=== PATIENT | male | born 1960 | race Caucasian/White ===

== ENCOUNTER 2023-02-13 15:27 | Outpatient (CLI) | payer MEDICARE ==
[2023-02-13 15:47] LABS: BASOPHILS % (AUTO) 0.4 %; EOSINOPHILS # (AUTO) 0.2 10^3/uL (0.0-0.7); EOSINOPHILS % (AUTO) 2.1 %; HCT - HEMATOCRIT 35.5 % (42.0-52.0); HGB - HEMOGLOBIN 11.3 g/dL (14.0-18.0); LYMPHOCYTES # (AUTO) 2.8 10^3/uL (1.5-3.5); LYMPHOCYTES % (AUTO) 27.6 %; MEAN CORPUSCULAR HEMOGLOBIN 28.8 pg (27.0-31.0); MEAN CORPUSCULAR HGB CONC 31.8 g/dL (32.0-36.0); MEAN CORPUSCULAR VOLUME 90.6 fL (80.0-94.0); MEAN PLATELET VOLUME 8.2 fL (7.4-11.4); MONOCYTES # (AUTO) 0.7 10^3/uL (0.0-1.0); MONOCYTES % (AUTO) 6.9 %; NEUTROPHILS # (AUTO) 6.3 10^3/uL (1.5-6.6); NEUTROPHILS % (AUTO) 62.7 %; PLT - PLATELET COUNT 523 10^3/uL (130-450); RED BLOOD COUNT 3.92 10^6/uL (4.70-6.10); RED CELL DISTRIBUTION WIDTH 13.5 % (12.0-15.0); WHITE BLOOD COUNT 10.1 x10^3/uL (4.8-10.8)
[2023-02-13 16:12] LABS: ALBUMIN 2.8 g/dL (3.2-5.5); ALBUMIN/GLOBULIN RATIO 0.6 (1.0-2.2); ALKALINE PHOSPHATASE 75 IU/L (42-121); ALT ALANINE AMINOTRANSFERASE 10 IU/L (10-60); AST ASPARTATE AMINOTRANSFERASE 19 IU/L (10-42); BILIRUBIN,TOTAL 0.4 mg/dL (0.2-1.0); BUN - BLOOD UREA NITROGEN 15 mg/dL (6-20); CALCIUM 8.8 mg/dL (8.5-10.3); CARBON DIOXIDE - CO2 26 mmol/L (21-32); CHLORIDE 98 mmol/L (101-111); CHOL/HDL RATIO 3.4 (<5.0); CHOLESTEROL 141 mg/dL; CREATININE 0.6 mg/dL (0.6-1.2); GFR - MDRD 137 (>89); GLUCOSE 124 mg/dL (70-100); HDL CHOLESTEROL 41 mg/dL; LDL CHOLESTEROL,CALCULATED 72 mg/dL; LDL/HDL RATIO 1.8 (<3.6); POTASSIUM 3.4 mmol/L (3.5-5.0); SODIUM 138 mmol/L (135-145); TOTAL PROTEIN 7.3 g/dL (6.7-8.2); TRIGLYCERIDES 141 mg/dL; VLDL CHOLESTEROL 28 mg/dL
== END 2023-02-13 15:28 | disposition home or self-care (01) ==
LOC: LAB 15:27
PROVIDERS: ATTEND Family Medicine
DX: I10 Essential (primary) hypertension (principal); E03.9 Hypothyroidism, unspecified; J44.9 Chronic obstructive pulmonary disease, unspecified; Z79.899 Other long term (current) drug therapy
CPT/HCPCS: 36415; 80053; 80061; 83721; 84443; 85025

== ENCOUNTER 2023-03-22 14:25 | Emergency (ER) | payer MEDICARE ==
[2023-03-22 15:02] LABS: BASOPHILS % (AUTO) 0.4 %; EOSINOPHILS # (AUTO) 0.1 10^3/uL (0.0-0.7); EOSINOPHILS % (AUTO) 1.1 %; HCT - HEMATOCRIT 33.3 % (42.0-52.0); HGB - HEMOGLOBIN 10.3 g/dL (14.0-18.0); LYMPHOCYTES # (AUTO) 1.7 10^3/uL (1.5-3.5); LYMPHOCYTES % (AUTO) 20.7 %; MEAN CORPUSCULAR HEMOGLOBIN 26.5 pg (27.0-31.0); MEAN CORPUSCULAR HGB CONC 30.9 g/dL (32.0-36.0); MEAN CORPUSCULAR VOLUME 85.8 fL (80.0-94.0); MEAN PLATELET VOLUME 8.3 fL (7.4-11.4); MONOCYTES # (AUTO) 0.6 10^3/uL (0.0-1.0); MONOCYTES % (AUTO) 7.1 %; NEUTROPHILS # (AUTO) 5.7 10^3/uL (1.5-6.6); NEUTROPHILS % (AUTO) 70.3 %; PLT - PLATELET COUNT 626 10^3/uL (130-450); RED BLOOD COUNT 3.88 10^6/uL (4.70-6.10); WHITE BLOOD COUNT 8.2 x10^3/uL (4.8-10.8)
[2023-03-22 15:25] LABS: ALBUMIN 2.4 g/dL (3.2-5.5); ALBUMIN/GLOBULIN RATIO 0.5 (1.0-2.2); BILIRUBIN,TOTAL 0.2 mg/dL (0.2-1.0); CALCIUM 8.7 mg/dL (8.5-10.3); CREATININE 0.5 mg/dL (0.6-1.2)
--- NOTE | 2023-03-22 15:39 | XRAY Report ---
PROCEDURE: Chest 2 View X-Ray INDICATIONS: cough TECHNIQUE: 2 views of the chest were acquired. COMPARISON: None. FINDINGS: Surgical changes and devices: None. Lungs and pleura: A well-circumscribed area of opacity in the right lower lung field corresponding w ith the right lower lobe is seen. Mediastinum: Mediastinal contours appear normal. Heart size is normal. Bones and chest wall: No suspicious bony lesions. Overlying soft tissues appear unremarkable. Rig htward curvature of the thoracic spine. IMPRESSION: 1. No acute abnormality of the chest. 2. Well-circumscribed opacity in the right lower lung field. Recommend CT of the chest. Reviewed by: Siddhartha Ma on 03/22/2023 3:38 PM PDT Approved by: Siddhartha Ma on 03/22/2023 3:38 PM PDT Station ID: [id number]
[2023-03-22] MEDS ORDERED: SODIUM CHLORIDE 0.9% 1,000 ML IV STA (15:50)
[2023-03-22] MEDS ORDERED: POTASSIUM BICARB 25 MEQ TABLET PO STA (15:50)
[2023-03-22] MEDS ORDERED: iohexoL-300 100 ML VIAL ONE (15:59)
[2023-03-22 16:06] LABS: MAGNESIUM 1.9 mg/dL (1.7-2.8); PHOSPHORUS 2.7 mg/dL (2.5-4.6)
--- NOTE | 2023-03-22 16:14 | ED Physician Documentation ---
History of Present Illness - Stated complaint Stated Complaint: COUGHING BLOOD/LEG WEAKNESS - Chief complaint Chief Complaint: General - History obtained from History obtained from: Patient - History of Present Illness Pain level max: 4 Pain level now: 3 - Additonal information Additional information: 62 year old male with a history of "a bad back, a bad knee and fibromyalgia". He takes 600mg of morphine daily. 6 mg of Lorazepam and 6 mg of clonazepam. He has been a long time smoker as well. States that he has had increased shortness of breath lately. Has been on advair in the past, but states that it was too expensive so stopped it. He does continue to smoke heavily however. Has never had a colonoscopy. States increased weakness and falls over the past month as well. No fevers. Occasional chills. 1 week ago during a coughing spell, he coughed up blood clots. Denies any blood in the stool. states hit left side of ribs on last fall 1 week ago. He called his PCP to make an appointment and was told to come here for evaluation. Review of Systems Constitutional: denies: Fever Respiratory: reports: Cough (chronic, unchanged) GI: denies: Nausea, Vomiting Skin: denies: Rash Musculoskeletal: reports: Back pain (chronic unchanged) Neurologic: denies: Headache PD PAST MEDICAL HISTORY - Past Medical History Past Medical History: Yes Other Past Medical History: chronic back and knee pain - Allergies Allergies/Adverse Reactions: Allergies Allergy/AdvReac Type Severity Reaction Status Date / Time No Known Drug Allergies Allergy Verified 03/22/23 14:34 - Living Situation Living Situation: reports: With family Living Arrangement: reports: At home - Social History Does the pt smoke?: Yes Smoking Status: Current every day smoker - Family History Family history: reports: Non contributory PD ED PE NORMAL - Vitals Vital signs reviewed: Yes - General General: Alert and oriented X 3, No acute distress, Well developed/nourished, Other (pale appearing) - HEENT HEENT: Atraumatic, PERRL, EOMI, Moist mucous membranes - Neck Neck: Supple, no meningeal sign, No bony TTP, No adenopathy - Cardiac Cardiac: RRR, Strong equal pulses - Respiratory Respiratory: No respiratory distress, Clear bilaterally - Abdomen Abdomen: Soft, Non tender, Non distended - Back Back: No CVA TTP, No spinal TTP - Derm Derm: Warm and dry - Extremities Extremities: No edema, No calf tenderness / cord - Neuro Neuro: Alert and oriented X 3 - Psych Psych: Normal mood, Normal affect - Free text exam Free text exam: Mild tenderness to palpation over the left anterior left ribs. No crepitus. No ecchymosis. Results - Vitals Vitals: Vital Signs - 24 hr 03/22/23 03/22/23 03/22/23 14:34 16:48 18:03 Temperature 36.5 C Heart Rate 130 H 112 H 105 H Respiratory 16 12 14 Rate Blood Pressure 158/82 H 112/56 L 115/59 L O2 Saturation 94 98 99 Oxygen O2 Source Room air - EKG (time done) 1533 EKG releavant findings:: EKG personally interpreted by author of this note. Relevant findings are: Rate: Rate (enter#) (109) Rhythm: Sinus tachycardia [place]: LAD Intervals: Normal PA QRS: Normal Ischemia: Normal ST segments Compare to prior EKG: Old EKG unavailable - Labs Labs: Laboratory Tests 03/22/23 03/22/23 03/22/23 14:57 14:57 14:57 WBC 8.2 RBC 3.88 L Hgb 10.3 L Hct 33.3 L MCV 85.8 MCH 26.5 L MCHC 30.9 L RDW 15.0 Plt Count 626 H MPV 8.3 Neut # (Auto) 5.7 Lymph # (Auto) 1.7 [place]ick # (Auto) 0.6 Eos # (Auto) 0.1 Baso # (Auto) 0.0 Absolute Nucleated RBC 0.00 Nucleated RBC % 0.0 Sodium 139 Potassium 3.0 L Chloride 98 L Carbon Dioxide 31 Anion Gap 10.0 BUN 11 Creatinine 0.5 L Estimated GFR (MDRD) 168 Glucose 119 H Calcium 8.7 Phosphorus 2.7 Magnesium 1.9 Total Bilirubin 0.2 AST 26 ALT 15 Alkaline Phosphatase 95 Total Protein 7.0 Albumin 2.4 L Globulin 4.6 H Albumin/Globulin Ratio 0.5 L Lipase 20 L - Rads (name of study) Chest x-ray Relevant Findings:: Final report received, See rad report CT chest Relevant Findings:: Final report received, See rad report CT abdomen pelvis Relevant Findings:: Final report received, See rad report PD Medical Decision Making - ED course Complexity details: reviewed results, re-evaluated patient, considered differential, d/w patient, d/w outside solar sales consultant ED course: 62-year-old male with a large right lower lobe lung mass. There may be extension into the right atria as well. I spoke with Dr. Joseph, Oncology at [facility] in [place] who recommends a lung biopsy, staging and referral to oncology. I spoke with Dr. Phillip Banda, on-call for Dr. Meyers, they will follow-up with the patient tomorrow in the office. Patient declines a breathing treatment here. The patient does have hypokalemia, he was given potassium. Appears dehydrated and was given IV fluids. Not hypoxic. No respiratory distress. Patient and family counseled regarding signs and symptoms for which I believe and urgent re-evaluation would be necessary. Patient with good understanding of and agreement to plan and is comfortable going home at this time This document was made in part using voice recognition software. While efforts are made to proofread this document, sound alike and grammatical errors may occur. Departure - Departure Disposition: 01 Home, Self Care Clinical Impression: Lung mass, Hypokalemia Condition: Good Instructions: Cancer Lung Dx Staging, Cancer Lung Plan Future, Cancer Lung L iving, ED Potassium Deficiency Follow-Up: Phillip Banda MD [Provider Admit Priv/Credential] - Hernando Meyers MD [Physician No Access] - Tomorrow Comments: I spoke with Dr. Banda, on-call for Dr. Meyers today. Please contact the office tomorrow so they can set up your referrals to oncology and to have a lung biopsy performed. Your CT reading is below. PROCEDURE: CHEST W INDICATIONS: mass on CXR CONTRAST: 100ml omnipaque 300 TECHNIQUE: After the administration of intravenous contrast, 1 mm axial images were acquired from the pulmonary apices through the posterior costophrenic angles. Axial 5 mm soft tissue kernel reconstructions were performed as well as 8 mm axial MIP and coronal and sagittal 5 mm r eformations. For radiation dose reduction, the following was used: automated exposure control, adjustment of mA and/or kV according to patient size. COMPARISON: Chest x-ray 03/22/2023, CT abdomen pelvis 03/22/2023 FINDINGS: Image quality: Excellent. Lungs and pleura: Mild to moderate right effusion. Within the right base there is a heterogeneously enhancing mass which becomes contiguous with the hilum. There is an adjacent filling defect within the right atrium measuring approximately 1.8 x 1.4 cm on series 2 image 42. Mediastinum: Heart size is normal. Minimal pericardial effusion. No large vessel abnormality. No mediastinal adenopathy by size criteria. Chest wall and lower neck: Thyroid is unremarkable. No axillary or supraclavicular adenopathy by size. Bones: No aggressive osseous abnormality. Upper Abdomen: Punctate low-attenuation focus in the right hepatic lobe is present to small to definitively characterize. IMPRESSION: Heterogeneously enhancing mass within the right lower lobe in direct approximation to the right hilum. Overall appearance is most concerning for malignancy with likely superimposed atelectatic change of adjacent collapsed lung. Mild to moderate right effusion. Focal area of filling defect identified adjacent to the mass at the right atrium concerning for tumor infiltration. Minimal pericardial effusion. PROCEDURE: ABDOMEN/PELVIS W INDICATIONS: mass on CXR CONTRAST: 100ml omnipaque 300 TECHNIQUE: After the administration of IV contrast, 5 mm thick sections acquired from the diaphragms to the symphysis. 5 mm thick coronal and sagittal reformats were acquired. For radiation dose reduction, the following was used: automated exposure control, adjustment of mA and/or kV according to patient size. COMPARISON: FINDINGS: Image quality: Excellent. Lung bases and heart: Right lower quadrant mass and effusion is partially visualized. Please see CT chest report of 03/22/2023 for further details. Liver: Punctate low-attenuation right hepatic focus is present to small to definitively characterize. There is an ill-defined area of low attenuation anteriorly near the falciform ligament on series 3 image 15. Gallbladder and biliary tree: Unremarkable Spleen: No splenomegaly. Pancreas: Marked fatty atrophy. Adrenals: No adrenal nodule. Kidneys and ureters: No hydronephrosis. No renal cystic lesion which requires follow up. No solid mass. Bowel and peritoneum: No bowel distension. No pathologic free fluid. Mild colonic diverticula are present without associated inflammatory change. Lymph nodes: No central or retroperitoneal adenopathy. Vessels: No infrarenal aortic aneurysm. PELVIS Reproductive organs: Unremarkable. Bladder: No abnormal wall thickening, accounting for underdistension. Pelvic lymph nodes: No pelvic adenopathy by size criteria. Bones: No aggressive osseous abnormality. Other: No significant ventral or inguinal hernia. There is a 1.5 cm enhancing density within the inferolateral rectus musculature on the right on series 3 image 49. IMPRESSION: Partially visualized right pulmonary mass. Please see CT chest report for further details. Punctate right hepatic low-attenuation focus too small to definitively characterize. While this could represent a cyst or hemangioma, other etiologies cannot be definitively exclude. Pulmonary low-attenuation the anterior liver suggestive of focal fat sparing. Hyperdense nodule within the rectus soft tissues as described below. Etiology is uncertain on the basis of this exam. While this could represent a complex cystic structure, enhancing mass should also be considered. Given lung findings, metastatic focus cannot be excluded. Discharge Date/Time: 03/22/23 18:03
[2023-03-22] MEDS ORDERED: iohexoL-300 100 ML VIAL IVP ONE (16:50)
--- NOTE | 2023-03-22 17:00 | CT Report ---
PROCEDURE: CHEST W INDICATIONS: mass on CXR CONTRAST: 100ml omnipaque 300 TECHNIQUE: After the administration of intravenous contrast, 1 mm axial images were acquired from the pulmonary apices through the posterior costophrenic angles. Axial 5 mm soft tissue kernel reconstructions were performed as well as 8 mm axial MIP and coronal and sagittal 5 mm reformations. For radiation dose reduction, the following was used: automated exposure control, adjustment of mA and/or kV according to patient size. COMPARISON: Chest x-ray 03/22/2023, CT abdomen pelvis 03/22/2023 FINDINGS: Image quality: Excellent. Lungs and pleura: Mild to moderate right effusion. Within the right base there is a heterogeneously e nhancing mass which becomes contiguous with the hilum. There is an adjacent filling defect within the right atrium measuring approximately 1.8 x 1.4 cm on series 2 image 42. Mediastinum: Heart size is normal. Minimal pericardial effusion. No large vessel abnormality. No medi astinal adenopathy by size criteria. Chest wall and lower neck: Thyroid is unremarkable. No axillary or supraclavicular adenopathy by size . Bones: No aggressive osseous abnormality. Upper Abdomen: Punctate low-attenuation focus in the right hepatic lobe is present to small to defini tively characterize. IMPRESSION: Heterogeneously enhancing mass within the right lower lobe in direct approximation to the right hilum . Overall appearance is most concerning for malignancy with likely superimposed atelectatic change of adjacent collapsed lung. Mild to moderate right effusion. Focal area of filling defect identified adjacent to the mass at the right atrium concerning for tumor infiltration. Minimal pericardial effusion. Reviewed by: Concepcion Swanson MD on 03/22/2023 4:59 PM PDT Approved by: Concepcion Swanson MD on 03/22/2023 4:59 PM PDT Station ID: [id number]
--- NOTE | 2023-03-22 17:03 | CT Report ---
PROCEDURE: ABDOMEN/PELVIS W INDICATIONS: mass on CXR CONTRAST: 100ml omnipaque 300 TECHNIQUE: After the administration of IV contrast, 5 mm thick sections acquired from the diaphragms to the symp hysis. 5 mm thick coronal and sagittal reformats were acquired. For radiation dose reduction, the f ollowing was used: automated exposure control, adjustment of mA and/or kV according to patient size. COMPARISON: FINDINGS: Image quality: Excellent. Lung bases and heart: Right lower quadrant mass and effusion is partially visualized. Please see CT c hest report of 03/22/2023 for further details. Liver: Punctate low-attenuation right hepatic focus is present to small to definitively characterize. There is an ill-defined area of low attenuation anteriorly near the falciform ligament on series 3 i mage 15. Gallbladder and biliary tree: Unremarkable Spleen: No splenomegaly. Pancreas: Marked fatty atrophy. Adrenals: No adrenal nodule. Kidneys and ureters: No hydronephrosis. No renal cystic lesion which requires follow up. No solid mas s. Bowel and peritoneum: No bowel distension. No pathologic free fluid. Mild colonic diverticula are pre sent without associated inflammatory change. Lymph nodes: No central or retroperitoneal adenopathy. Vessels: No infrarenal aortic aneurysm. PELVIS Reproductive organs: Unremarkable. Bladder: No abnormal wall thickening, accounting for underdistension. Pelvic lymph nodes: No pelvic adenopathy by size criteria. Bones: No aggressive osseous abnormality. Other: No significant ventral or inguinal hernia. There is a 1.5 cm enhancing density within the infe rolateral rectus musculature on the right on series 3 image 49. IMPRESSION: Partially visualized right pulmonary mass. Please see CT chest report for further details. Punctate right hepatic low-attenuation focus too small to definitively characterize. While this could represent a cyst or hemangioma, other etiologies cannot be definitively exclude. Pulmonary low-attenuation the anterior liver suggestive of focal fat sparing. Hyperdense nodule within the rectus soft tissues as described below. Etiology is uncertain on the bas is of this exam. While this could represent a complex cystic structure, enhancing mass should also be considered. Given lung findings, metastatic focus cannot be excluded. Reviewed by: Concepcion Swanson MD on 03/22/2023 5:02 PM PDT Approved by: Concepcion Swanson MD on 03/22/2023 5:02 PM PDT Station ID: [id number]
[2023-03-22 18:06] VITALS: BP 115/59
== END 2023-03-22 18:03 | disposition home or self-care (01) ==
LOC: ED 14:25
DX: R91.8 Other nonspecific abnormal finding of lung field (principal); E87.6 Hypokalemia; F17.200 Nicotine dependence, unspecified, uncomplicated
CPT/HCPCS: 36415; 71046; 71260; 74177; 80053; 83690; 83735; 84100; 85025; 93005; 96360; 99284; A9270; Q9967

== ENCOUNTER 2023-04-10 14:44 | Outpatient (CLI) | payer MEDICARE | END 2023-04-10 23:59 | disposition critical access hospital (66) | LOC: EMS 14:44 | DX: R06.02 Shortness of breath (principal); R09.02 Hypoxemia; R41.0 Disorientation, unspecified | CPT/HCPCS: A0425; A0429 ==

== ENCOUNTER 2023-04-10 15:21 | Inpatient (IN) | payer MEDICARE ==
[2023-04-10] MEDS ORDERED: SODIUM CHLORIDE 0.9% 1,000 ML IV STA ×2 (15:41→17:33)
--- NOTE | 2023-04-10 15:42 | ED Physician Documentation ---
PD HPI ALTERED MENTAL STATUS - Stated complaint Stated Complaint: CONFUSION - Chief complaint Chief Complaint: Neuro - History obtained from History obtained from: Patient, Family (spouse) - History of Present Illness Timing - onset: How many weeks ago (2) Timing - duration: Weeks (2) Timing - details: Gradual onset, Still present Quality / character: Less responsive, Confused, Disoriented Associated symptoms: Dyspnea, General weakness Contributing factors: Cancer Basline status: Alert and oriented X 3, Ambulatory, Independent Similar symptoms before: Has not had sx before Recently seen: Emergency Dept - Additional information Additional information: Magdy Ivey is a 62-year-old male who 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 He has a history of COPD and he recently has had a series of falls and was evaluated in the emergency department on 22 March. He at that time was noted to have a mass in his right lung consistent with tumor and he had follow- up with his primary to arrange biopsy and this has not occurred. The patient has subsequently had more falls and he has become more confused over the past 2 days. He was picked up by medics and noted to be hypoxic they placed oxygen without resolution of his symptoms. He was tachycardic as well. He had altered mental status. The patient was unable to give adequate history. History was taken from the on arrival. Review of Systems Constitutional: reports: Fever (Low-grade undulating) Eyes: reports: Decreased vision (There is some problem with the patient's vision that he is unable to fully explain.) Ears: reports: Ear pain (There is some unusual pain behind the right ear.) Nose: denies: Rhinorrhea / runny nose, Congestion Throat: denies: Sore throat Cardiac: denies: Chest pain / pressure, Palpitations, Pedal edema, Calf pain Respiratory: reports: Dyspnea. denies: Cough, Wheezing GI: denies: Abdominal Pain, Nausea, Vomiting, Constipation, Diarrhea : denies: Dysuria, Frequency Skin: denies: Rash Musculoskeletal: reports: Back pain. denies: Neck pain Neurologic: reports: Generalized weakness, Confused, Altered mental status. denies: Headache, Head injury, LOC PD PAST MEDICAL HISTORY - Past Medical History Past Medical History: Yes Other Past Medical History: Diagnosed with lung tumor recently-no staging as of yet. - Allergies Allergies/Adverse Reactions: Allergies Allergy/AdvReac Type Severity Reaction Status Date / Time No Known Drug Allergies Allergy Verified 03/22/23 14:34 - Social History Does the pt smoke?: Yes Smoking Status: Former smoker Does the pt drink ETOH?: No Does the pt have substance abuse?: No - Immunizations Immunizations are current?: Yes PD ED PE NORMAL - Vitals Vital signs reviewed: Yes (Tachycardic and hypertensive) - General General: Other (Thin pale male with his eyes rolled back attempts to communicate and has significant speech delay and delay in execution of motor commands. He appears ill.) - HEENT HEENT: Atraumatic, PERRL, EOMI - Neck Neck: Supple, no meningeal sign, No bony TTP - Cardiac Cardiac: No murmur, Other (Tachycardic to 130) - Respiratory Respiratory: Other (Tachypneic at rest with diminished breath sounds especially in the right base.) - Abdomen Abdomen: Soft, Non tender - Back Back: No CVA TTP, No spinal TTP - Derm Derm: Warm and dry, No rash, Other (Pale color to skin) - Extremities Extremities: No deformity, No edema - Neuro Neuro: Alert and oriented X 3, car escort 2-12 intact, No motor deficit, No sensory deficit Eye Opening: To Voice Motor: Obeys Commands Verbal: Confused GCS Score: 13 - Psych Psych: Normal mood, Normal affect Results - Vitals Vitals: Vital Signs - 24 hr 04/10/23 04/10/23 04/10/23 15:21 15:25 15:55 Temperature 37.2 C 37.2 C Heart Rate 128 H 128 H 120 H Respiratory 22 22 20 Rate Blood Pressure 121/87 H 121/87 H 120/82 H O2 Saturation 99 99 98 If not protocol : Oxygen Flow, liters/minute 04/10/23 04/10/23 04/10/23 16:44 17:00 17:30 Temperature Heart Rate 119 H 109 H 119 H Respiratory 16 16 22 Rate Blood Pressure 109/65 125/64 128/70 O2 Saturation 98 100 97 If not protocol : Oxygen Flow, liters/minute 04/10/23 04/10/23 04/10/23 18:00 18:30 19:00 Temperature Heart Rate 129 H 112 H 119 H Respiratory 20 14 16 Rate Blood Pressure 117/64 110/57 L 122/72 O2 Saturation 100 98 98 If not protocol 2 : Oxygen Flow, liters/minute 04/10/23 04/10/23 04/10/23 19:30 20:00 20:30 Temperature Heart Rate 114 H 111 H 110 H Respiratory 14 24 18 Rate Blood Pressure 114/68 92/60 90/60 O2 Saturation 96 98 98 If not protocol 2 2 2 : Oxygen Flow, liters/minute Oxygen O2 Source Nasal cannula Oxygen Flow Rate 4 - Labs Labs: Microbiology 04/10/23 18:18 Body Fluid Culture - Preliminary Other - Aspirate Laboratory Tests 04/10/23 04/10/23 04/10/23 16:35 16:35 16:35 WBC 10.3 RBC 3.95 L Hgb 10.0 L Hct 33.0 L MCV 83.5 MCH 25.3 L MCHC 30.3 L RDW 17.6 H Plt Count 462 H MPV 8.7 Neut # (Auto) 9.3 H Lymph # (Auto) 0.5 L Burnet # (Auto) 0.5 Eos # (Auto) 0.0 Baso # (Auto) 0.0 Absolute Nucleated RBC 0.00 Nucleated RBC % 0.0 Sodium 136 Potassium 3.5 Chloride 96 L Carbon Dioxide 30 Anion Gap 10.0 BUN 8 Creatinine 0.6 Estimated GFR (MDRD) 137 Glucose 121 H Lactic Acid 1.5 Calcium 8.5 Total Bilirubin 0.4 AST 13 ALT 11 Alkaline Phosphatase 94 Total Protein 6.3 L Albumin 2.1 L Globulin 4.2 Albumin/Globulin Ratio 0.5 L Lipase 19 L Fluid Source Fluid Color Fluid Clarity Fluid WBC Fluid RBC Fluid Neutrophils % Fluid Lymphocytes % Fluid Monocytes % Fluid Macrophages % Fld Mesothelial Cell % 04/10/23 18:30 WBC RBC Hgb Hct MCV MCH MCHC RDW Plt Count MPV Neut # (Auto) Lymph # (Auto) Burnet # (Auto) Eos # (Auto) Baso # (Auto) Absolute Nucleated RBC Nucleated RBC % Sodium Potassium Chloride Carbon Dioxide Anion Gap BUN Creatinine Estimated GFR (MDRD) Glucose Lactic Acid Calcium Total Bilirubin AST ALT Alkaline Phosphatase Total Protein Albumin Globulin Albumin/Globulin Ratio Lipase Fluid Source PLEURAL Fluid Color YELLOW Fluid Clarity CLEAR Fluid WBC 352 Fluid RBC < 3000 Fluid Neutrophils % 21.0 Fluid Lymphocytes % 66.0 Fluid Monocytes % 3.0 Fluid Macrophages % 2.0 Fld Mesothelial Cell % 8.0 - Rads (name of study) chest Relevant Findings:: Prelim report reviewed (Impression: Interval development of a moderate to large right pleural effusion with near complete atelectasis of the right middle lobe and lower lobe. Patient is known right lower lobe mass is obstructed on the current view. No pneumothorax. Pulmonary vascular congestion.), EMP independent interpretation of test CT head Relevant Findings:: Prelim report reviewed (Impression: Bilateral occipital and posterior parietal hypodensities are likely remote infarcts, less likely hypodense masses, please correlate with prior imaging or history of prior strokes. If no prior history, consider CT with contrast to rule out masses.), EMP independent interpretation of test chest post thoracentesis Relevant Findings:: Prelim report reviewed (Impression: 1. Opacification of the right lower lung field consistent with the known mass and associated atelectasis. Status postthoracentesis with no pneumothorax.), EMP independent interpretation of test Procedures - Thoracentesis - Major Preparation: Consent obtained, Sterile prep and drape, Sitting, Local - lidocaine Technique: Catheter over needle, Intercostal space - enter (9), Lateral, Right, Ultrasound used Fluid: Clear, Sent for cell count, Sent for gram stain, Sent for culture, Sent for cytology Aftercare: CXR obtained, No pneumo, No complications, Patient tolerated well, Dressing applied - IVC sono (time) 1538 Bedside IVC sono: IVC measures (cm) (1.12), Dehydration (est 1+ liter deficit) PD Medical Decision Making - ED course Complexity details: reviewed old records, reviewed results, re-evaluated patient, considered differential, d/w patient, d/w family Reviewed Lab Results: We reviewed a complete blood count showing a normal white blood cell count, a depressed hemoglobin and hematocrit at 10.0 and 33.0. These levels are nearly identical to what the patient had 3 weeks ago. Platelet count is elevated at 462 down from where he was on his prior visit 3 weeks ago. Pleural fluid shows 352 white blood cells and less than 3000 red blood cells. My interpretation of these chronically abnormal laboratory values are the patient has not progressed with blood loss since his most recent visit. This blood work does not offer a specific diagnosis. The patient had diagnostic imaging done demonstrating a large pleural effusion on the right side which would account for the patient's presentation for hypoxia and would be expected from the patient's known lung mass. Diagnostic imaging also a a revealed a mass in the brain. This would account for the patient's visual difficulty. ED course: 62-year-old Magdy Ivey presents with a new diagnosis of lung cancer 3 weeks ago and he has not had biopsy done as yet. He has not had treatment started as yet. He presents today with confusion and is found to be hypoxic tachycardic and a new masses discovered in the patient's brain. I interrogated the patient's inferior vena cava and found him to be dehydrated significantly and we applied intravenous saline. The patient had some improvement with the saline alone. He has large pleural effusion on the right side and I personally performed a thoracentesis removing 1500 mL of straw-colored fluid. The patient had improvement in his breathing and generally felt much improved but he continues to be tachycardic at about 120. Arrangements are made for admission to the hospital with persistent hypoxia and new mets to the brain. Departure - Departure Disposition: 66 [facility] DC/Xfer Clinical Impression: Pleural effusion, malignant, Metastasis to brain Altered mental status Qualifiers: Altered mental status type: disorientation Qualified Code(s): R41.0 - Disorientation, unspecified Lung cancer Qualifiers: Laterality: right Lung location: hilum of lung Qualified Code(s): C34.01 - Malignant neoplasm of right main bronchus
--- NOTE | 2023-04-10 16:01 | XRAY Report ---
PROCEDURE: Chest 1 View X-Ray INDICATIONS: chest pain TECHNIQUE: One view of the chest was acquired. COMPARISON: 03/22/2023. FINDINGS: Surgical changes and devices: None. Lungs and pleura: Interval development of moderate to large right pleural effusion with near complet e atelectasis of right middle and lower lobes. No pneumothorax. Left lung is clear. Mediastinum: Mediastinal contours appear normal. Heart size is normal. Bones and chest wall: No suspicious bony lesions. Overlying soft tissues appear unremarkable. IMPRESSION: Interval development of moderate to large right pleural effusion with near complete atelectasis of ri ght middle and lower lobe. Patient's known right lower lobe mass is obscured on the current study. No pneumothorax. Pulmonary vascular congestion. Reviewed by: Arie Gonzalez MD on 04/10/2023 3:59 PM PDT Approved by: Arie Gonzalez MD on 04/10/2023 3:59 PM PDT Station ID: [id number]
[2023-04-10 16:52] LABS: BASOPHILS % (AUTO) 0.2 %; LYMPHOCYTES # (AUTO) 0.5 10^3/uL (1.5-3.5); LYMPHOCYTES % (AUTO) 5.2 %; MEAN CORPUSCULAR HEMOGLOBIN 25.3 pg (27.0-31.0); MEAN CORPUSCULAR HGB CONC 30.3 g/dL (32.0-36.0); MEAN CORPUSCULAR VOLUME 83.5 fL (80.0-94.0); MEAN PLATELET VOLUME 8.7 fL (7.4-11.4); MONOCYTES # (AUTO) 0.5 10^3/uL (0.0-1.0); MONOCYTES % (AUTO) 4.4 %; NEUTROPHILS # (AUTO) 9.3 10^3/uL (1.5-6.6); PLT - PLATELET COUNT 462 10^3/uL (130-450); RED BLOOD COUNT 3.95 10^6/uL (4.70-6.10); RED CELL DISTRIBUTION WIDTH 17.6 % (12.0-15.0); WHITE BLOOD COUNT 10.3 x10^3/uL (4.8-10.8)
[2023-04-10 17:00] LABS: ALBUMIN 2.1 g/dL (3.2-5.5); ALBUMIN/GLOBULIN RATIO 0.5 (1.0-2.2); BILIRUBIN,TOTAL 0.4 mg/dL (0.2-1.0); CALCIUM 8.5 mg/dL (8.5-10.3); CREATININE 0.6 mg/dL (0.6-1.2); POTASSIUM 3.5 mmol/L (3.5-5.0); TOTAL PROTEIN 6.3 g/dL (6.7-8.2)
[2023-04-10 19:29] LABS: BF CLARITY CLEAR; BF SOURCE PLEURAL; CC,BF RBC < 3000 /mm^3; CC,BF WBC 352 /mm^3
[2023-04-10 19:30] LABS: BF COLOR YELLOW
--- NOTE | 2023-04-10 19:37 | CT Report ---
PROCEDURE: HEAD WO INDICATIONS: confusion TECHNIQUE: Noncontrast 4.5 mm thick angled axial sections acquired from the foramen magnum to the vertex. For r adiation dose reduction, the following was used: automated exposure control, adjustment of mA and/or kV according to patient size. COMPARISON: None. FINDINGS: Image quality: Excellent. CSF spaces: Basal cisterns are patent. No extra-axial fluid collections. Ventricles are normal in size and shape. Brain: Bilateral occipital and posterior parietal hypodensities are seen, likely remote infarcts. No evidence of hemorrhage. No midline shift. No intracranial masses or hemorrhage. Posada-white matter interface is normal. Skull and face: Calvarium and visualized facial bones are intact, without suspicious lesions. Sinuses: Visualized sinuses and mastoids are clear. IMPRESSION: Bilateral occipital and posterior parietal hypodensities are likely remote infarcts, le ss likely hypodense masses, please correlate with prior imaging or history of prior strokes. If no pr ior history, consider CT with contrast to rule out masses. Reviewed by: Siddhartha Ma on 04/10/2023 7:36 PM PDT Approved by: Siddhartha Ma on 04/10/2023 7:36 PM PDT Station ID: [id number]
--- NOTE | 2023-04-10 19:44 | XRAY Report ---
PROCEDURE: Chest 1 View X-Ray INDICATIONS: post thoracentesis TECHNIQUE: One view of the chest was acquired. COMPARISON: None. FINDINGS: Surgical changes and devices: None. Lungs and pleura: The right lung demonstrates opacification of the lower lung. Pleural effusion prev iously seen earlier today is decreased. There is no pneumothorax. The left lung is clear. Mediastinum: Mediastinal contours appear normal. Heart size is normal. Bones and chest wall: No suspicious bony lesions. Overlying soft tissues appear unremarkable. IMPRESSION: 1. Opacification of the right lower lung field consistent with known mass and associated atelectasis. 2. Status post thoracentesis with no pneumothorax. Reviewed by: Siddhartha Ma on 04/10/2023 7:43 PM PDT Approved by: Siddhartha Ma on 04/10/2023 7:43 PM PDT Station ID: [id number]
--- NOTE | 2023-04-10 20:59 | HISTORY & PHYSICAL EXAMINATION ---
Chief Complaint - Chief Complaint Chief Complaint: fall History of Present Illness - Admitted From Admitted From:: home - History of Present Illness HPI Comment/Other: 62 y/o M presented with falls and AMS and hypoxia. He was found to have a lung mass and was scheduled to have a biopsy. In the ED he was found to be tachycardic and imagaing showed new pleural effusion on right and lung masses. He has improved with fluid and o2. He also has some visual difficulties recently. History - Past Medical History Other Past Medical History: Diagnosed with lung tumor recently-no staging as of yet. - Family & Social History Living Situation: With family Meds/Allgy - Allergies Allergies/Adverse Reactions: Allergies Allergy/AdvReac Type Severity Reaction Status Date / Time No Known Drug Allergies Allergy Verified 03/22/23 14:34 Review of Systems - Constitutional Constitutional: reports: Fatigue - Eyes Eyes: reports: Blurred vision - Respiratory Respiratory: reports: SOB with exertion - Neurological Neurological: reports: General weakness Exam - Vital Signs Vital Signs: Vital Signs x48h Temp Pulse Resp BP Pulse Ox O2 Flow Rate 04/10/23 20:30 110 H 18 90/60 98 2 04/10/23 20:00 111 H 24 92/60 98 2 04/10/23 19:30 114 H 14 114/68 96 2 04/10/23 19:00 119 H 16 122/72 98 04/10/23 18:30 112 H 14 110/57 L 98 2 04/10/23 18:00 129 H 20 117/64 100 04/10/23 17:30 119 H 22 128/70 97 04/10/23 17:00 109 H 16 125/64 100 04/10/23 16:44 119 H 16 109/65 98 04/10/23 15:55 120 H 20 120/82 H 98 04/10/23 15:25 37.2 C 128 H 22 121/87 H 99 04/10/23 15:21 37.2 C 128 H 22 121/87 H 99 - Physical Exam General Appearance: positive: No acute distress Eyes Bilateral: positive: Normal inspection ENT: positive: ENT inspection nml Neck: positive: Nml inspection Respiratory: positive: Breath sounds nml Cardiovascular: positive: Regular rate & rhythm Abdomen: positive: No distention Neurologic/Psychiatric: positive: Oriented x3 Conclusion/Plan - Lab Results Fish Bones: 04/10/23 16:35 04/10/23 16:35 - Other Other Results/Comments: 62 y/o M # sob: new pleural effusion and lung mass and hx of copd o2 and nebs, monitor and follow up on fluid analysis # possible metastatic lung ca: pt needs biopsy or fluid analysis and possible surgery/CT versus hospice, day team to address # anemia: no gross bleeding, monitor # hx of chronic myalgia # DNR discussed with pt and in detail 3 SCD I performed this consultation using real-tung telehealth tools including a live video connection between my location and the patient's location. As the provider for this telehealth service, I attest that I introduced myself to the patient and/or the family, provided my credentials, disclosed my location and determined that based on my review of patient's chart and/or discussion with members of the patient's treatment team, telemedicine via real time, 2 way, interactive audio and video platform is an appropriate and effective means of providing service. The patient/family and I mutually agree that this visit is appropriate for telemedicine as well. Patients have been informed of and agreed to telemedicine management by partnership of [facility] and hospital administration, knowing the limitations of telemedicine. Some elements of this visit were assisted with the audiovisual technology and the bedside nurse. Total time is 45 minutes of which greater than 50% was spent in direct patient care. I answered all medical questions to the best of my ability.
[2023-04-10] MEDS ORDERED: SODIUM CHLORIDE FLUSH 0.9% 10 ML SYRINGE IVP PRN (21:12)
[2023-04-10] MEDS ORDERED: ALBUTEROL NEB 2.5 MG/3 ML INH STA (21:16)
[2023-04-10] MEDS ORDERED: IPRATROPIUM/ALBUTEROL 3 ML NEB INH PRN (21:17)
[2023-04-10 21:24] LABS: B. PARAPERTUSSIS- RESP PCR PAN NOT DETECTED; B. PERTUSSIS- RESP PCR PANEL NOT DETECTED; C. PNEUMONIAE- RESP PCR PANEL NOT DETECTED; CORONAVIRUS 229E-RESP PCR NOT DETECTED; CORONAVIRUS HKU1-RESP PCR NOT DETECTED; CORONAVIRUS NL63-RESP PCR NOT DETECTED; CORONAVIRUS OC43-RESP PCR NOT DETECTED; HUMAN METAPNEUMOVIRUS NOT DETECTED; INFLUENZA A- RESP PCR PANEL NOT DETECTED; INFLUENZA B - RESP PCR PANEL NOT DETECTED; M. PNEUMONIAE- RESP PCR PANEL NOT DETECTED; PARAINFLUENZA VIRUS 1 NOT DETECTED; PARAINFLUENZA VIRUS 2 NOT DETECTED; PARAINFLUENZA VIRUS 3 NOT DETECTED; PARAINFLUENZA VIRUS 4 NOT DETECTED; RHINOVIRUS/ENTEROVIRUS NOT DETECTED; RSV- RESP PCR PANEL NOT DETECTED; SARS-CoV-2 -RESP PCR PANEL NOT DETECTED
[2023-04-10] MEDS: D5NS W/20 MEQ KCL 1,000 ML IV SCH (22:27)
[2023-04-10] MEDS: SODIUM CHLORIDE FLUSH 0.9% 10 ML SYRINGE IVP SCH (23:26)
[2023-04-11] MEDS ORDERED: ALBUMIN 25% 12.5 GM/50 ML VIAL IV STA (08:14)
[2023-04-11] MEDS: D5NS W/20 MEQ KCL 1,000 ML IV SCH ×3 (09:02→16:35)
[2023-04-11] MEDS: SODIUM CHLORIDE FLUSH 0.9% 10 ML SYRINGE IVP SCH ×2 (10:08→16:17)
--- NOTE | 2023-04-11 11:09 | PHARMACY PROGRESS NOTE ---
- Best Possible Medication History Admit Date and Time: 04/10/232112 Processed by: Pharmacy Medication History completed: Yes Patient Interview: Completed Secondary Source(s): Pharmacy records As the person ultimately responsible for medication therapy, providers are able to order a medication from an existing home medication list in [facility] via the "Reconcile Routine" prior to Confirmation of that medication by system support analyst. Such practice is discouraged except when the physician, in their clinical judgment, deems that a medical need exists for a medication without regard to previous use.
[2023-04-11] MEDS: cefTRIAXone 1 GM in SODIUM CHLORIDE 0.9% MINIBAG 100 ML IV SCH (12:00)
[2023-04-11] MEDS ORDERED: iohexoL-300 100 ML VIAL ONE (14:12)
--- NOTE | 2023-04-11 14:37 | PROVIDER PROGRESS NOTE ---
Assessment/Plan - Problem List (1) Shortness of breath Assessment/Plan: improved after Patient had thoracentesis and take 1500 cc of pleural fluids on last night. gram staining/blood count study show unlikely infected. Called lab, lab is ready to send sample for cytology study since pt still had no biopsy study for his possible lung cancer. pt was taken out 1500 cc pleural effusion and albumin is low, order once IV albumin. hx of copd continue o2 supplement as needed and continue nebs metastatic lung ca possible: pt still had no biopsy after pt has image study right lung mass. ER provider planed to send pleural fluid for cytology analysis CT of head without contrast concern of Metastatic to the brain, recommended contrasted CT study of the brain which is ordered. discussed with pt's at the bedside since pt is still confused, she is lik abril favorite to the advanced care plan at this point, we will discuss further after contrast CT of brain study. anemia: no gross bleeding, monitor hx of chronic myalgia confirm with pt's , pt did chronically take significant amount anti-anxiety meds and pain meds at home for his myalgia. Now pt has possible Metastatic lung cancer and possible metastasis to the brain. We will resume home anti-anxiety meds and the pain medication DNR pt's confirm pt is DNR at this point, we will further discuss advanced care plan. - Current Meds Current Meds: Current Medications Generic Name Dose Route Start Last Admin Trade Name Freq PRN Reason Stop Dose Admin Albuterol/Ipratropium 3 ml 04/10/23 21:17 04/10/23 22:55 Ipratropium/Albuterol 3 Ml Neb INH 3 ml Q4HR PRN Administration Wheezing Potassium Chloride/Dextrose/Sod Cl 1,000 mls @ 100 mls/hr 04/10/23 22:00 04/11/23 10:30 D5ns W/20 Meq Kcl IV 75 mls/hr .Q10H CHARANJIT Infusion Ceftriaxone Sodium 1 gm/ 100 mls @ 200 mls/hr 04/11/23 09:00 04/11/23 12:38 Sodium Chloride IV Infused DAILY CHARANJIT Infusion Sodium Chloride 10 ml 04/11/23 01:00 04/11/23 10:08 Sodium Chloride Flush 0.9% 10 Ml Syringe IVP Not Given 0100,0900,1700 CHARANJIT - Lab Result Fish Bone Diagrams: 04/10/23 16:35 04/10/23 16:35 - Additional Planning My Orders: My Active Orders 04/11/23 UA w/ MICROSCOPIC, CULT IF [URIN] Urgent 04/11/23 Breakfast DIET [Soft (Low Fiber) Diet] [DIET] 04/11/23 08:05 HEAD W [CT] Stat 04/11/23 10:28 Acetaminophen [Tylenol] 650 mg PO Q4HR PRN HYDROcod/ACETAM 5/325 [[place] 5/325] 1 tab PO Q4HR PRN 04/11/23 14:31 Aspirin [Ann] 975 mg PO TID PRN 04/11/23 14:45 Morphine Sulfate [Morphine Sulfate ER] 2 tab PO Q8H clonazePAM [Klonopin] 2 tab PO Q8H 04/12/23 05:00 CBC - COMP BLD CT W/AUTO DIFF [HEME] DAILYLAB CMP [COMPREHENSIVE METABOLIC PANEL] [CHEM] DAILYLAB 04/12/23 09:00 Enoxaparin [Lovenox] 40 mg SUBQ DAILY Subjective - Subjective Nursing Reports: Confused Objective Vital Signs: Vital Signs - 24 hr 04/10/23 04/10/23 04/10/23 15:21 15:25 15:55 Temperature 37.2 C 37.2 C Heart Rate 128 H 128 H 120 H Heart Rate [ Brachial] Respiratory 22 22 20 Rate Blood Pressure 121/87 H 121/87 H 120/82 H Blood Pressure [Right Brachial artery] O2 Saturation 99 99 98 If not protocol : Oxygen Flow, liters/minute 04/10/23 04/10/23 04/10/23 16:44 17:00 17:30 Temperature Heart Rate 119 H 109 H 119 H Heart Rate [ Brachial] Respiratory 16 16 22 Rate Blood Pressure 109/65 125/64 128/70 Blood Pressure [Right Brachial artery] O2 Saturation 98 100 97 If not protocol : Oxygen Flow, liters/minute 04/10/23 04/10/23 04/10/23 18:00 18:30 19:00 Temperature Heart Rate 129 H 112 H 119 H Heart Rate [ Brachial] Respiratory 20 14 16 Rate Blood Pressure 117/64 110/57 L 122/72 Blood Pressure [Right Brachial artery] O2 Saturation 100 98 98 If not protocol 2 : Oxygen Flow, liters/minute 04/10/23 04/10/23 04/10/23 19:30 20:00 20:30 Temperature Heart Rate 114 H 111 H 110 H Heart Rate [ Brachial] Respiratory 14 24 18 Rate Blood Pressure 114/68 92/60 90/60 Blood Pressure [Right Brachial artery] O2 Saturation 96 98 98 If not protocol 2 2 2 : Oxygen Flow, liters/minute 04/10/23 04/10/23 04/10/23 21:00 22:17 22:53 Temperature 36.8 C 37.5 C Heart Rate 109 H Heart Rate [ 113 H Brachial] Respiratory 22 20 Rate Blood Pressure 94/58 L Blood Pressure 108/53 L [Right Brachial artery] O2 Saturation 99 97 If not protocol 2 2 2 : Oxygen Flow, liters/minute 04/10/23 04/11/23 04/11/23 22:55 00:05 06:12 Temperature 37.1 C 36.7 C Heart Rate 109 H Heart Rate [ 106 H 105 H Brachial] Respiratory 20 20 18 Rate Blood Pressure Blood Pressure 106/52 L 107/63 [Right Brachial artery] O2 Saturation 99 100 If not protocol 2 2 2 : Oxygen Flow, liters/minute 04/11/23 04/11/23 04/11/23 07:38 08:04 13:19 Temperature 37.3 C 37.6 C Heart Rate Heart Rate [ 104 H 106 H Brachial] Respiratory 20 16 Rate Blood Pressure Blood Pressure 106/57 L 104/56 L [Right Brachial artery] O2 Saturation 99 97 If not protocol 2 2 2 : Oxygen Flow, liters/minute Oxygen O2 Source Nasal cannula Oxygen Flow Rate 4 I&O (Last 24 Hrs): Intake and Output Totals x24h 04/09/23 04/10/23 04/11/23 23:59 23:59 23:59 Intake Total 1999 1736.667 Output Total 525 Balance 1999 1211.667 General: Alert HEENT: Atraumatic Neck: Supple Neuro: Alert, Disoriented Cardiovascular: Regular rate, Normal S1, Normal S2 Respiratory: Chest non-tender Abdomen: Normal bowel sounds, Soft Extremities: No clubbing - Results Results: Laboratory Results WBC 10.3 x10^3/uL (4.8-10.8) 04/10/23 16:35 RBC 3.95 10^6/uL (4.70-6.10) L 04/10/23 16:35 Hgb 10.0 g/dL (14.0-18.0) L 04/10/23 16:35 Hct 33.0 % (42.0-52.0) L 04/10/23 16:35 MCV 83.5 fL (80.0-94.0) 04/10/23 16:35 MCH 25.3 pg (27.0-31.0) L 04/10/23 16:35 MCHC 30.3 g/dL (32.0-36.0) L 04/10/23 16:35 RDW 17.6 % (12.0-15.0) H 04/10/23 16:35 Plt Count 462 10^3/uL (130-450) H 04/10/23 16:35 MPV 8.7 fL (7.4-11.4) 04/10/23 16:35 Neut # (Auto) 9.3 10^3/uL (1.5-6.6) H 04/10/23 16:35 Lymph # (Auto) 0.5 10^3/uL (1.5-3.5) L 04/10/23 16:35 Barnes # (Auto) 0.5 10^3/uL (0.0-1.0) 04/10/23 16:35 Eos # (Auto) 0.0 10^3/uL (0.0-0.7) 04/10/23 16:35 Baso # (Auto) 0.0 10^3/uL (0.0-0.1) 04/10/23 16:35 Absolute Nucleated RBC 0.00 x10^3/uL 04/10/23 16:35 Nucleated RBC % 0.0 /100WBC 04/10/23 16:35 Sodium 136 mmol/L (135-145) 04/10/23 16:35 Potassium 3.5 mmol/L (3.5-5.0) 04/10/23 16:35 Chloride 96 mmol/L (101-111) L 04/10/23 16:35 Carbon Dioxide 30 mmol/L (21-32) 04/10/23 16:35 Anion Gap 10.0 (6-13) 04/10/23 16:35 BUN 8 mg/dL (6-20) 04/10/23 16:35 Creatinine 0.6 mg/dL (0.6-1.2) 04/10/23 16:35 Estimated GFR (MDRD) 137 (>89) 04/10/23 16:35 Glucose 121 mg/dL (70-100) H 04/10/23 16:35 Lactic Acid 1.5 mmol/L (0.5-2.2) 04/10/23 16:35 Calcium 8.5 mg/dL (8.5-10.3) 04/10/23 16:35 Total Bilirubin 0.4 mg/dL (0.2-1.0) 04/10/23 16:35 AST 13 IU/L (10-42) 04/10/23 16:35 ALT 11 IU/L (10-60) 04/10/23 16:35 Alkaline Phosphatase 94 IU/L (42-121) 04/10/23 16:35 Total Protein 6.3 g/dL (6.7-8.2) L 04/10/23 16:35 Albumin 2.1 g/dL (3.2-5.5) L 04/10/23 16:35 Globulin 4.2 g/dL (2.1-4.2) 04/10/23 16:35 Albumin/Globulin Ratio 0.5 (1.0-2.2) L 04/10/23 16:35 Lipase 19 U/L (22-51) L 04/10/23 16:35 Fluid Source PLEURAL 04/10/23 18:30 Fluid Color YELLOW 04/10/23 18:30 Fluid Clarity CLEAR 04/10/23 18:30 Fluid WBC 352 /mm^3 04/10/23 18:30 Fluid RBC < 3000 /mm^3 04/10/23 18:30 Fluid Neutrophils % 21.0 % 04/10/23 18:30 Fluid Lymphocytes % 66.0 % 04/10/23 18:30 Fluid Monocytes % 3.0 % 04/10/23 18:30 Fluid Macrophages % 2.0 % 04/10/23 18:30 Fld Mesothelial Cell % 8.0 % 04/10/23 18:30 Nasal Adenovirus (PCR) NOT DETECTED 04/10/23 20:30 Nasal B. parapertussis DNA (PCR) NOT DETECTED 04/10/23 20:30 Nasal Coronavir 229E PCR NOT DETECTED 04/10/23 20:30 Nasal Coronavir HKU1 PCR NOT DETECTED 04/10/23 20:30 Nasal Coronavir NL63 PCR NOT DETECTED 04/10/23 20:30 Nasal Coronavir OC43 PCR NOT DETECTED 04/10/23 20:30 Nasal Enterovir/Rhinovir PCR NOT DETECTED 04/10/23 20:30 Nasal Influenza B PCR NOT DETECTED 04/10/23 20:30 Nasal Influenza A PCR NOT DETECTED 04/10/23 20:30 Nasal Parainfluen 1 PCR NOT DETECTED 04/10/23 20:30 Nasal Parainfluen 2 PCR NOT DETECTED 04/10/23 20:30 Nasal Parainfluen 3 PCR NOT DETECTED 04/10/23 20:30 Nasal Parainfluen 4 PCR NOT DETECTED 04/10/23 20:30 Nasal RSV (PCR) NOT DETECTED 04/10/23 20:30 Nasal B.pertussis DNA PCR NOT DETECTED 04/10/23 20:30 Nasal C.pneumoniae (PCR) NOT DETECTED 04/10/23 20:30 Estiven Human Metapneumo PCR NOT DETECTED 04/10/23 20:30 Nasal M.pneumoniae (PCR) NOT DETECTED 04/10/23 20:30 Nasal SARS-CoV-2 (PCR) NOT DETECTED 04/10/23 20:30 ABX Reporting Has patient been on IV antibiotics over the past 48 hours?: Yes Current Medications - Current Medications Current Medications: Active Medications Acetaminophen (Acetaminophen 325 Mg Tablet) 650 mg PO Q4HR PRN PRN Reason: Pain or Fever > 38C (100.4F) Hydrocodone Bitart/Acetaminophen (Hydrocod/Acetam 5/325 Mg Tablet) 1 tab PO Q4HR PRN PRN Reason: Moderate Pain (Level 4-6) Albuterol/Ipratropium (Ipratropium/Albuterol 3 Ml Neb) 3 ml INH Q4HR PRN PRN Reason: Wheezing Last Admin: 04/10/23 22:55 Dose: 3 ml Aspirin (Aspirin 325 Mg Tablet) 975 mg PO TID PRN PRN Reason: PAIN 1-4 Clonazepam (Clonazepam 0.5 Mg Tablet) 4 mg PO Q8H CHARANJIT Enoxaparin Sodium (Enoxaparin 40 Mg/0.4 Ml Syringe) 40 mg SUBQ DAILY CHARANJIT Potassium Chloride/Dextrose/Sod Cl (D5ns W/20 Meq Kcl) 1,000 mls @ 100 mls/hr IV .Q10H CHARANJIT Last Infusion: 04/11/23 10:30 Dose: 75 mls/hr Ceftriaxone Sodium 1 gm/ (Sodium Chloride) 100 mls @ 200 mls/hr IV DAILY [facility] Last Infusion: 04/11/23 12:38 Dose: Infused Non-Formulary Medication (Morphine Sulfate [Morphine Sulfate Er]) 2 tab PO Q8H [facility] Sodium Chloride (Sodium Chloride Flush 0.9% 10 Ml Syringe) 10 ml IVP PRN PRN PRN Reason: NEEDED PER PROVIDER ORDERS Sodium Chloride (Sodium Chloride Flush 0.9% 10 Ml Syringe) 10 ml IVP 0100, 0900,1700 [facility] Last Admin: 04/11/23 10:08 Dose: Not Given Acetaminophen [Tylenol] 2 tab PO TID PRN 04/11/23 Aspirin [Ann] 3 tab PO TID PRN 04/11/23 Calcium Carbonate/Vitamin D3 [Calcium 500 mg Chewable Tablet] 2 tab PO DAILY 04/11/23 LORazepam [Lorazepam] 2 tab PO Q8H 04/11/23 Morphine Sulfate [Morphine Sulfate ER] 2 tab PO Q8H 04/11/23 Multivit-Minerals/Folic Acid [Multivitamin Gummies] 2 tab PO DAILY 04/11/23 clonazePAM [Klonopin] 2 tab PO Q8H 04/11/23
--- NOTE | 2023-04-11 15:17 | CT Report ---
PROCEDURE: HEAD W INDICATIONS: confused, suspecious mass CONTRAST: 100ml Omnipaque 300 TECHNIQUE: 4.5 mm thick angled axial sections acquired from the foramen magnum to the vertex after the administr ation of intravenous contrast. For radiation dose reduction, the following was used: automated expo sure control, adjustment of mA and/or kV according to patient size. COMPARISON: CT head 723. FINDINGS: Image quality: Excellent. CSF Spaces: Basal cisterns are patent. No extra-axial fluid collections. Ventricles are normal in size and shape. Brain: No midline shift. No intracranial bleeds. There are low-attenuation foci within the bilatera l parietal occipital lobes felt to be relatively stable taking into account differences in appearance . They demonstrate small areas of enhancement. No abnormal intracranial enhancement. Posada-white inte rface appears normal. Skull and face: Calvarium and visualized facial bones appear intact. There is a soft tissue density measuring approximately 14 x 8 mm scalp soft tissues of the left frontal lobe. It is unchanged. Sinuses: Visualized sinuses and mastoids are clear. IMPRESSION: Low-attenuation foci within the parietal-occipital lobes bilaterally. Given presence of small areas o f enhancement, concern is raised for a malignant etiology. Further evaluation with MRI brain with and without contrast is recommended. 14 x 8 mm scalp soft tissue density in the left frontal lobe. This is overall indeterminate. While th is could represent a sebaceous cyst, direct visualization and further evaluation with rheumatology is recommended as indicated. Reviewed by: Concepcion Swanson MD on 04/11/2023 3:15 PM PDT Approved by: Concepcion Swanson MD on 04/11/2023 3:15 PM PDT Station ID: [id number]
[2023-04-11] MEDS ORDERED: iohexoL-300 100 ML VIAL IVP ONE (16:12)
[2023-04-11] MEDS: MORPHINE SULFATE ER 30 MG TABLET PO SCH (16:16)
[2023-04-11] MEDS: MORPHINE ER 15 MG TABLET PO SCH (16:17)
[2023-04-11] MEDS: clonazePAM 0.5 MG TABLET PO SCH (16:17)
[2023-04-11] MEDS ORDERED: GADOBUTROL 7.5 MMOL/7.5 ML VIAL ONE (18:20)
[2023-04-11] MEDS ORDERED: GADOBUTROL 7.5 MMOL/7.5 ML VIAL IVP ONE (18:35)
[2023-04-11] MEDS: HYDROcod/ACETAM 5/325 MG TABLET PO PRN (19:25)
--- NOTE | 2023-04-11 21:24 | MRI Report ---
PROCEDURE: BRAIN W/WO INDICATIONS: metastatic lesion CONTRAST: gadavist 6.6ml TECHNIQUE: Noncontrast axial T1 spin echo, axial T2 fast spin echo, sagittal and axial FLAIR, coronal T2 fast sp in echo, axial gradient echo, axial diffusion and ADC through the brain. After the administration of contrast, axial and coronal T1 spin echo with fat saturation through the brain. COMPARISON: CT head with, 03/12/2023. FINDINGS: Image quality: Excellent. CSF spaces: Basal cisterns are patent. No extra-axial fluid collections. Ventricles are normal in size and shape. Brain: There are multiple enhancing masses bilaterally involving the left parietal lobe and bilatera l occipital lobes with associated vasogenic edema consistent with metastasis. Reference lesions are l isted in following: -2.6 cm rim-enhancing mass in the right parietal occipital lobe. -1.3 cm enhancing nodule in the left parietal lobe. -1.0 cm enhancing nodule in the left occipital lobe -0.5 cm enhancing nodule in the left occipital. No midline shift. No intracranial bleeds or masses. No abnormal intracranial enhancement. There is cerebral volume loss for age. There is periventricular white matter chronic small vessel ischemic c hange. The brainstem appears normal. Diffusion-weighted images demonstrate no acute ischemic insult s. No chronic ischemic insults. Normal intravascular flow voids are present. Skull and face: Calvarial marrow is normal in signal. Orbits appear normal. There is a 1 cm subcut aneous nodule in the left frontal area. Sinuses: Sinuses and mastoids appear clear. IMPRESSION: 1. Multiple enhancing masses bilaterally suspicious for metastatic disease. 2. A 1 cm subcutaneous nodule in the left frontal area. This may be a sebaceous cyst. Recommend corre lation with findings on physical exam. Reviewed by: Dipak Wilson MD on 04/11/2023 9:23 PM PDT Approved by: Dipak Wilson MD on 04/11/2023 9:23 PM PDT Station ID: [id number]
[2023-04-12] MEDS: MORPHINE ER 15 MG TABLET PO SCH ×4 (00:03→23:31)
[2023-04-12] MEDS: MORPHINE SULFATE ER 30 MG TABLET PO SCH ×4 (00:03→23:31)
[2023-04-12] MEDS: clonazePAM 0.5 MG TABLET PO SCH ×4 (00:04→23:31)
[2023-04-12] MEDS: SODIUM CHLORIDE FLUSH 0.9% 10 ML SYRINGE IVP SCH ×4 (00:07→23:31)
[2023-04-12] MEDS: D5NS W/20 MEQ KCL 1,000 ML IV SCH ×2 (02:27→16:31)
[2023-04-12 05:16] LABS: BASOPHILS % (AUTO) 0.2 %; EOSINOPHILS % (AUTO) 0.5 %; HCT - HEMATOCRIT 24.7 % (42.0-52.0); HGB - HEMOGLOBIN 7.5 g/dL (14.0-18.0); LYMPHOCYTES # (AUTO) 1.4 10^3/uL (1.5-3.5); LYMPHOCYTES % (AUTO) 17.3 %; MEAN CORPUSCULAR HEMOGLOBIN 25.8 pg (27.0-31.0); MEAN CORPUSCULAR HGB CONC 30.4 g/dL (32.0-36.0); MEAN CORPUSCULAR VOLUME 84.9 fL (80.0-94.0); MEAN PLATELET VOLUME 8.7 fL (7.4-11.4); MONOCYTES # (AUTO) 0.8 10^3/uL (0.0-1.0); MONOCYTES % (AUTO) 9.9 %; NEUTROPHILS # (AUTO) 5.9 10^3/uL (1.5-6.6); NEUTROPHILS % (AUTO) 71.9 %; PLT - PLATELET COUNT 345 10^3/uL (130-450); RED BLOOD COUNT 2.91 10^6/uL (4.70-6.10); RED CELL DISTRIBUTION WIDTH 17.6 % (12.0-15.0); WHITE BLOOD COUNT 8.3 x10^3/uL (4.8-10.8)
[2023-04-12 05:27] LABS: ALBUMIN 1.7 g/dL (3.2-5.5); ALBUMIN/GLOBULIN RATIO 0.5 (1.0-2.2); BILIRUBIN,TOTAL 0.4 mg/dL (0.2-1.0); CALCIUM 7.8 mg/dL (8.5-10.3); CREATININE 0.4 mg/dL (0.6-1.2); POTASSIUM 3.4 mmol/L (3.5-5.0)
[2023-04-12] MEDS: HYDROcod/ACETAM 5/325 MG TABLET PO PRN (05:42)
[2023-04-12] MEDS ORDERED: ZINC OXIDE 20% OINT 30 GM TUBE TOP PRN (06:16)
[2023-04-12] MEDS: cefTRIAXone 1 GM in SODIUM CHLORIDE 0.9% MINIBAG 100 ML IV SCH (09:38)
[2023-04-12] MEDS: ENOXAPARIN 40 MG/0.4 ML SYRINGE SUBQ SCH (09:38)
[2023-04-12] MEDS ORDERED: POTASSIUM CHLORIDE 20 MEQ TABLET PO ONE (12:17)
--- NOTE | 2023-04-12 12:33 | PROVIDER PROGRESS NOTE ---
Assessment/Plan - Problem List (1) Shortness of breath Assessment/Plan: pt feel some released after Patient had thoracentesis and he was taken 1500 cc of pleural fluids on last night. gram staining/blood count study show unlikely infected. Called lab, lab is ready to send sample for cytology study since pt still had no biopsy study for his possible lung cancer. called lab today and confirmed pleural effusion sample was sent out to have cytology study. metastatic lung ca possible: Patient had CT of the chest done at 3 weeks ago which showed heterogeneously enhancing mass within right lower lobe, [place] appearance is most concerning of malignancy And tumor infiltrated at right atrium. pt still had no biopsy. pt had large right pleural , and pleural fluid was sent for cytology analysis on last night MRI w/O of Brain find Patient had Multiple enhancing masses bilaterally suspicious for metastatic disease. clinically pt present confused and lethargy as well. Right large pleural effusion Patient was found to have large lower right pleural effusion, patient had a thoracentesis done by the ER, Sample was sent off for cytology study, fluids culture and stain was initial unlikely infected. Lethargy and confused pt present more lethargy, and confused on today. MRI w/O of Brain did find Patient had Multiple enhancing masses bilaterally suspicious for metastatic disease. pt also chronic take significantly amount pain meds and Ativan for his chronic myalgia. severe physical deconditioning Patient presents Severe physical deconditioning and depending from totally care Anorexia pt show poor Appetite and malnutrition. hx of copd continue o2 supplement as needed and continue nebs hx of chronic myalgia confirm with pt's , pt did chronically take significant amount anti-anxiety meds and pain meds at home for his myalgia. Now pt has possible Metastatic lung cancer and possible metastasis to the brain. We will resume home anti-anxiety meds and the pain medication encounter to hospice care pt is confused and his make the decision for pt. his understood pt has no biopsy result yet and cytology study is pending. his hope to have hospice care at pt's home. we will consult with hospice care team. 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 - Current Meds Current Meds: Current Medications Generic Name Dose Route Start Last Admin Trade Name Freq PRN Reason Stop Dose Admin Hydrocodone Bitart/Acetaminophen 1 tab 04/11/23 10:28 04/12/23 05:42 Hydrocod/Acetam 5/325 Mg Tablet PO 1 tab Q4HR PRN Administration Moderate Pain (Level 4-6) Albuterol/Ipratropium 3 ml 04/10/23 21:17 04/10/23 22:55 Ipratropium/Albuterol 3 Ml Neb INH 3 ml Q4HR PRN Administration Wheezing Clonazepam 4 mg 04/11/23 15:00 04/12/23 06:05 Clonazepam 0.5 Mg Tablet PO 4 mg Q8H CHARANJIT Administration Enoxaparin Sodium 40 mg 04/12/23 09:00 04/12/23 09:38 Enoxaparin 40 Mg/0.4 Ml Syringe SUBQ 40 mg DAILY CHARANJIT Administration Ceftriaxone Sodium 1 gm/ 100 mls @ 200 mls/hr 04/11/23 09:00 04/12/23 10:50 Sodium Chloride IV Infused DAILY CHARANJIT Infusion Potassium Chloride/Dextrose/Sod Cl 1,000 mls @ 75 mls/hr 04/11/23 15:49 04/12/23 02:27 D5ns W/20 Meq Kcl IV 75 mls/hr .[id number] CHARANJIT Administration Morphine Sulfate 180 mg 04/11/23 16:00 04/12/23 09:54 Morphine Sulfate Er 30 Mg Tablet PO 180 mg Q8H CHARANJIT Administration Morphine Sulfate 15 mg 04/11/23 16:00 04/12/23 09:54 Morphine Er 15 Mg Tablet PO 15 mg Q8H CHARANJIT Administration Sodium Chloride 10 ml 04/11/23 01:00 04/12/23 09:39 Sodium Chloride Flush 0.9% 10 Ml Syringe IVP Not Given 0100,0900,1700 CHARANJIT - Lab Result Fish Bone Diagrams: 04/12/23 05:05 04/12/23 05:05 - Additional Planning My Orders: My Active Orders 04/11/23 14:31 Aspirin [Ann] 975 mg PO TID PRN 04/11/23 15:00 clonazePAM [KlonoPIN] 4 mg PO Q8H 04/11/23 15:49 D5ns W/20 Meq KCl 1,000 ml IV 75 mls/hr 04/11/23 16:00 Morphine ER [Ms Contin] 15 mg PO Q8H Morphine Sulfate ER [Ms Contin] 180 mg PO Q8H 04/12/23 09:00 Enoxaparin [Lovenox] 40 mg SUBQ DAILY 04/12/23 Lunch Soft (Low Fiber) Diet [DIET] 04/12/23 12:00 Multivitamin W/Minerals [Theragran M] 1 tab PO DAILYWM 04/12/23 12:12 Potassium Chloride [K-Dur] 20 meq PO ONCE ONE Subjective - Subjective Nursing Reports: Confused Objective Vital Signs: Vital Signs - 24 hr 04/11/23 04/11/23 04/11/23 13:19 16:44 19:53 Temperature 37.6 C 37.8 C Heart Rate [ 106 H 113 H Brachial] Respiratory 16 16 Rate Blood Pressure [Left Brachial artery] Blood Pressure 104/56 L 108/55 L [Right Brachial artery] O2 Saturation 97 98 92 If not protocol 2 2 : Oxygen Flow, liters/minute 04/11/23 04/11/23 04/12/23 21:00 23:32 05:15 Temperature 37.4 C 37.2 C 37.1 C Heart Rate [ 116 H 115 H 108 H Brachial] Respiratory 16 16 16 Rate Blood Pressure 99/51 L [Left Brachial artery] Blood Pressure 116/64 105/55 L [Right Brachial artery] O2 Saturation 93 97 2 L If not protocol 2 : Oxygen Flow, liters/minute 04/12/23 04/12/23 07:33 08:30 Temperature 37.3 C Heart Rate [ 111 H Brachial] Respiratory 18 Rate Blood Pressure [Left Brachial artery] Blood Pressure 115/55 L [Right Brachial artery] O2 Saturation 95 If not protocol 2 : Oxygen Flow, liters/minute Oxygen O2 Source Room air Oxygen Flow Rate 4 I&O (Last 24 Hrs): Intake and Output Totals x24h 04/10/23 04/11/23 04/12/23 23:59 23:59 23:59 Intake Total 1999 2596.167 735.833 Output Total 525 Balance 1999 2071.167 735.833 General: Alert HEENT: Atraumatic Neck: Supple Neuro: Alert, Disoriented Cardiovascular: Regular rate, Normal S1, Normal S2 Respiratory: Chest non-tender, No respiratory distress Abdomen: Normal bowel sounds, Soft - Results Results: Laboratory Results WBC 8.3 x10^3/uL (4.8-10.8) 04/12/23 05:05 RBC 2.91 10^6/uL (4.70-6.10) L 04/12/23 05:05 Hgb 7.5 g/dL (14.0-18.0) L 04/12/23 05:05 Hct 24.7 % (42.0-52.0) L 04/12/23 05:05 MCV 84.9 fL (80.0-94.0) 04/12/23 05:05 MCH 25.8 pg (27.0-31.0) L 04/12/23 05:05 MCHC 30.4 g/dL (32.0-36.0) L 04/12/23 05:05 RDW 17.6 % (12.0-15.0) H 04/12/23 05:05 Plt Count 345 10^3/uL (130-450) 04/12/23 05:05 MPV 8.7 fL (7.4-11.4) 04/12/23 05:05 Neut # (Auto) 5.9 10^3/uL (1.5-6.6) 04/12/23 05:05 Lymph # (Auto) 1.4 10^3/uL (1.5-3.5) L 04/12/23 05:05 [place] # (Auto) 0.8 10^3/uL (0.0-1.0) 04/12/23 05:05 Eos # (Auto) 0.0 10^3/uL (0.0-0.7) 04/12/23 05:05 Baso # (Auto) 0.0 10^3/uL (0.0-0.1) 04/12/23 05:05 Absolute Nucleated RBC 0.00 x10^3/uL 04/12/23 05:05 Nucleated RBC % 0.0 /100WBC 04/12/23 05:05 Sodium 138 mmol/L (135-145) 04/12/23 05:05 Potassium 3.4 mmol/L (3.5-5.0) L 04/12/23 05:05 Chloride 102 mmol/L (101-111) 04/12/23 05:05 Carbon Dioxide 31 mmol/L (21-32) 04/12/23 05:05 Anion Gap 5.0 (6-13) L 04/12/23 05:05 BUN 5 mg/dL (6-20) L 04/12/23 05:05 Creatinine 0.4 mg/dL (0.6-1.2) L 04/12/23 05:05 Estimated GFR (MDRD) 218 (>89) 04/12/23 05:05 Glucose 117 mg/dL (70-100) H 04/12/23 05:05 Lactic Acid 1.5 mmol/L (0.5-2.2) 04/10/23 16:35 Calcium 7.8 mg/dL (8.5-10.3) L 04/12/23 05:05 Total Bilirubin 0.4 mg/dL (0.2-1.0) 04/12/23 05:05 AST 22 IU/L (10-42) 04/12/23 05:05 ALT 13 IU/L (10-60) 04/12/23 05:05 Alkaline Phosphatase 72 IU/L (42-121) 04/12/23 05:05 Total Protein 5.0 g/dL (6.7-8.2) L 04/12/23 05:05 Albumin 1.7 g/dL (3.2-5.5) L 04/12/23 05:05 Globulin 3.3 g/dL (2.1-4.2) 04/12/23 05:05 Albumin/Globulin Ratio 0.5 (1.0-2.2) L 04/12/23 05:05 Lipase 19 U/L (22-51) L 04/10/23 16:35 Fluid Source PLEURAL 04/10/23 18:30 Fluid Color YELLOW 04/10/23 18:30 Fluid Clarity CLEAR 04/10/23 18:30 Fluid WBC 352 /mm^3 04/10/23 18:30 Fluid RBC < 3000 /mm^3 04/10/23 18:30 Fluid Neutrophils % 21.0 % 04/10/23 18:30 Fluid Lymphocytes % 66.0 % 04/10/23 18:30 Fluid Monocytes % 3.0 % 04/10/23 18:30 Fluid Macrophages % 2.0 % 04/10/23 18:30 Fld Mesothelial Cell % 8.0 % 04/10/23 18:30 Nasal Adenovirus (PCR) NOT DETECTED 04/10/23 20:30 Nasal B. parapertussis DNA (PCR) NOT DETECTED 04/10/23 20:30 Nasal Coronavir 229E PCR NOT DETECTED 04/10/23 20:30 Nasal Coronavir HKU1 PCR NOT DETECTED 04/10/23 20:30 Nasal Coronavir NL63 PCR NOT DETECTED 04/10/23 20:30 Nasal Coronavir OC43 PCR NOT DETECTED 04/10/23 20:30 Nasal Enterovir/Rhinovir PCR NOT DETECTED 04/10/23 20:30 Nasal Influenza B PCR NOT DETECTED 04/10/23 20:30 Nasal Influenza A PCR NOT DETECTED 04/10/23 20:30 Nasal Parainfluen 1 PCR NOT DETECTED 04/10/23 20:30 Nasal Parainfluen 2 PCR NOT DETECTED 04/10/23 20:30 Nasal Parainfluen 3 PCR NOT DETECTED 04/10/23 20:30 Nasal Parainfluen 4 PCR NOT DETECTED 04/10/23 20:30 Nasal RSV (PCR) NOT DETECTED 04/10/23 20:30 Nasal B.pertussis DNA PCR NOT DETECTED 04/10/23 20:30 Nasal C.pneumoniae (PCR) NOT DETECTED 04/10/23 20:30 Estiven Human Metapneumo PCR NOT DETECTED 04/10/23 20:30 Nasal M.pneumoniae (PCR) NOT DETECTED 04/10/23 20:30 Nasal SARS-CoV-2 (PCR) NOT DETECTED 04/10/23 20:30 ABX Reporting Has patient been on IV antibiotics over the past 48 hours?: Yes Current Medications - Current Medications Current Medications: Active Medications Acetaminophen (Acetaminophen 325 Mg Tablet) 650 mg PO Q4HR PRN PRN Reason: Pain or Fever > 38C (100.4F) Hydrocodone Bitart/Acetaminophen (Hydrocod/Acetam 5/325 Mg Tablet) 1 tab PO Q4HR PRN PRN Reason: Moderate Pain (Level 4-6) Last Admin: 04/12/23 05:42 Dose: 1 tab Albuterol/Ipratropium (Ipratropium/Albuterol 3 Ml Neb) 3 ml INH Q4HR PRN PRN Reason: Wheezing Last Admin: 04/10/23 22:55 Dose: 3 ml Aspirin (Aspirin 325 Mg Tablet) 975 mg PO TID PRN PRN Reason: PAIN 1-4 Clonazepam (Clonazepam 0.5 Mg Tablet) 4 mg PO Q8H CHARANJIT Last Admin: 04/12/23 06:05 Dose: 4 mg Enoxaparin Sodium (Enoxaparin 40 Mg/0.4 Ml Syringe) 40 mg SUBQ DAILY [facility] Last Admin: 04/12/23 09:38 Dose: 40 mg Ceftriaxone Sodium 1 gm/ (Sodium Chloride) 100 mls @ 200 mls/hr IV DAILY [facility] Last Infusion: 04/12/23 10:50 Dose: Infused Potassium Chloride/Dextrose/Sod Cl (D5ns W/20 Meq Kcl) 1,000 mls @ 75 mls/hr IV .[id number] [facility] Last Admin: 04/12/23 02:27 Dose: 75 mls/hr Morphine Sulfate (Morphine Sulfate Er 30 Mg Tablet) 180 mg PO Q8H [facility] Last Admin: 04/12/23 09:54 Dose: 180 mg Morphine Sulfate (Morphine Er 15 Mg Tablet) 15 mg PO Q8H [facility] Last Admin: 04/12/23 09:54 Dose: 15 mg Multi-Ingredient Ointment (Zinc Oxide 20% Oint 30 Gm Tube) 1 applic TOP PRN PRN PRN Reason: Skin Care Multivitamins/Minerals (Multivitamin W/Minerals Tablet) 1 tab PO DAILYWM [facility] Sodium Chloride (Sodium Chloride Flush 0.9% 10 Ml Syringe) 10 ml IVP PRN PRN PRN Reason: NEEDED PER PROVIDER ORDERS Sodium Chloride (Sodium Chloride Flush 0.9% 10 Ml Syringe) 10 ml IVP 0100,0900,1700 [facility] Last Admin: 04/12/23 09:39 Dose: Not Given Acetaminophen [Tylenol] 2 tab PO TID PRN 04/11/23 Aspirin [Ann] 3 tab PO TID PRN 04/11/23 Calcium Carbonate/Vitamin D3 [Calcium 500 mg Chewable Tablet] 2 tab PO DAILY 04/11/23 LORazepam [Lorazepam] 2 tab PO Q8H 04/11/23 Morphine Sulfate [Morphine Sulfate ER] 2 tab PO Q8H 04/11/23 Multivit-Minerals/Folic Acid [Multivitamin Gummies] 2 tab PO DAILY 04/11/23 clonazePAM [Klonopin] 2 tab PO Q8H 04/11/23
[2023-04-12] MEDS: MULTIVITAMIN W/MINERALS TABLET PO SCH (14:01)
[2023-04-12] MEDS: dexAMETHasone 4 MG TABLET PO SCH (16:30)
[2023-04-12 19:11] LABS: BILIRUBIN,URINE NEGATIVE (NEGATIVE); GLUCOSE, URINE (UA) NEGATIVE (NEGATIVE); KETONES,URINE (UA) NEGATIVE (NEGATIVE); LEUKOCYTE ESTERASE, URINE NEGATIVE (NEGATIVE); NITRITE,URINE NEGATIVE (NEGATIVE); OCCULT BLOOD,URINE NEGATIVE (NEGATIVE); PROTEIN,URINE NEGATIVE (NEGATIVE); UROBILINOGEN,URINE 0.2 (NORMAL) E.U./dL (NORMAL)
[2023-04-12 19:13] LABS: CLARITY,URINE CLEAR (CLEAR)
[2023-04-12 19:28] LABS: BACTERIA,URINE Rare /HPF (None Seen); MUCUS,URINE Few Strands; RBC,URINE 0-5 /HPF (0-5); SQUAMOUS EPITHELIAL CELL,UR RARE Squamous (<= Few); WBC,URINE 0-3 /HPF (0-3)
[2023-04-13] MEDS: D5NS W/20 MEQ KCL 1,000 ML IV SCH ×2 (04:04→20:26)
[2023-04-13] MEDS: clonazePAM 0.5 MG TABLET PO SCH ×3 (06:02→23:52)
[2023-04-13] MEDS: ENOXAPARIN 40 MG/0.4 ML SYRINGE SUBQ SCH (08:38)
[2023-04-13] MEDS: MULTIVITAMIN W/MINERALS TABLET PO SCH (08:39)
[2023-04-13] MEDS: dexAMETHasone 4 MG TABLET PO SCH ×2 (08:39→16:33)
[2023-04-13] MEDS: MORPHINE SULFATE ER 30 MG TABLET PO SCH ×3 (08:39→23:53)
[2023-04-13] MEDS: MORPHINE ER 15 MG TABLET PO SCH ×3 (08:39→23:52)
[2023-04-13] MEDS: SODIUM CHLORIDE FLUSH 0.9% 10 ML SYRINGE IVP SCH ×3 (08:40→23:53)
[2023-04-13 09:05] LABS: BASOPHILS % (AUTO) 0.1 %; LYMPHOCYTES # (AUTO) 0.6 10^3/uL (1.5-3.5); LYMPHOCYTES % (AUTO) 6.8 %; MEAN CORPUSCULAR HEMOGLOBIN 25.6 pg (27.0-31.0); MEAN CORPUSCULAR VOLUME 85.5 fL (80.0-94.0); MEAN PLATELET VOLUME 8.7 fL (7.4-11.4); MONOCYTES # (AUTO) 0.4 10^3/uL (0.0-1.0); MONOCYTES % (AUTO) 4.7 %; PLT - PLATELET COUNT 371 10^3/uL (130-450); RED BLOOD COUNT 3.51 10^6/uL (4.70-6.10); RED CELL DISTRIBUTION WIDTH 17.5 % (12.0-15.0); WHITE BLOOD COUNT 9.1 x10^3/uL (4.8-10.8)
[2023-04-13 09:17] LABS: ALBUMIN 1.9 g/dL (3.2-5.5); ALBUMIN/GLOBULIN RATIO 0.5 (1.0-2.2); BILIRUBIN,TOTAL 0.2 mg/dL (0.2-1.0); CREATININE 0.5 mg/dL (0.6-1.2); POTASSIUM 4.3 mmol/L (3.5-5.0); TOTAL PROTEIN 5.7 g/dL (6.7-8.2)
[2023-04-13] MEDS ORDERED: SENNA 8.6 MG TABLET PO PRN (09:41)
[2023-04-13] MEDS ORDERED: SENNA 8.6 MG TABLET PO SCH (10:00)
--- NOTE | 2023-04-13 13:49 | PROVIDER PROGRESS NOTE ---
Assessment/Plan - Problem List (1) Shortness of breath Assessment/Plan: pt feel some released after Patient had thoracentesis and he was taken 1500 cc of pleural fluids on last night. gram staining/blood count study show unlikely infected. Called lab, lab is ready to send sample for cytology study since pt still had no biopsy study for his possible lung cancer. called lab today and confirmed pleural effusion sample was sent out to have cytology study. metastatic lung ca possible: Patient had CT of the chest done at 3 weeks ago which showed heterogeneously enhancing mass within right lower lobe, [place] appearance is most concerning of malignancy And tumor infiltrated at right atrium. pt still had no biopsy. pt had large right pleural , and pleural fluid was sent for cytology analysis on last night MRI w/O of Brain find Patient had Multiple enhancing masses bilaterally suspicious for metastatic disease. Right large pleural effusion patient had a thoracentesis done by the ER, Patient was found to have large lower right pleural effusion, Sample was sent to for cytology study, fluids culture and stain was initial unlikely infected. Lethargy and confused improved on today. pt was ordered dexamethasone for Symptomatic improvement. MRI w/O of Brain did find Patient had Multiple enhancing masses bilaterally suspicious for metastatic disease. pt also chronic take significantly amount pain meds and Ativan for his chronic myalgia. physical deconditioning Patient presents significantly physical deconditioning Anorexia pt show poor Appetite and malnutrition. hx of copd continue o2 supplement as needed and continue nebs hx of chronic myalgia confirm with pt's , pt did chronically take significant amount anti-anxiety meds and pain meds at home for his myalgia. Now pt has possible Metastatic lung cancer and possible metastasis to the brain. We will resume home anti-anxiety meds and the pain medication encounter to hospice care pt had Symptomatic improvement after patient was give dexamethasone. pt's request to explore Patient's capacity for rehab. order PT/OT Evaluation to patient, we will closely followup. consulted and called hospice care provider, and hospice team came to evaluate pt as well. - Current Meds Current Meds: Current Medications Generic Name Dose Route Start Last Admin Trade Name Freq PRN Reason Stop Dose Admin Hydrocodone Bitart/Acetaminophen 1 tab 04/11/23 10:28 04/12/23 05:42 Hydrocod/Acetam 5/325 Mg Tablet PO 1 tab Q4HR PRN Administration Moderate Pain (Level 4-6) Albuterol/Ipratropium 3 ml 04/10/23 21:17 04/10/23 22:55 Ipratropium/Albuterol 3 Ml Neb INH 3 ml Q4HR PRN Administration Wheezing Clonazepam 4 mg 04/11/23 15:00 04/13/23 06:02 Clonazepam 0.5 Mg Tablet PO 4 mg Q8H CHARANJIT Administration Dexamethasone 4 mg 04/12/23 17:00 04/13/23 08:39 Dexamethasone 4 Mg Tablet PO 4 mg BIDWM CHARANJIT Administration Enoxaparin Sodium 40 mg 04/12/23 09:00 04/13/23 08:38 Enoxaparin 40 Mg/0.4 Ml Syringe SUBQ 40 mg DAILY CHARANJIT Administration Potassium Chloride/Dextrose/Sod Cl 1,000 mls @ 75 mls/hr 04/11/23 15:49 04/13/23 04:04 D5ns W/20 Meq Kcl IV 75 mls/hr .[id number] CHARANJIT Administration Morphine Sulfate 180 mg 04/11/23 16:00 04/13/23 08:39 Morphine Sulfate Er 30 Mg Tablet PO 180 mg Q8H CHARANJIT Administration Morphine Sulfate 15 mg 04/11/23 16:00 04/13/23 08:39 Morphine Er 15 Mg Tablet PO 15 mg Q8H CHARANJIT Administration Multivitamins/Minerals 1 tab 04/12/23 12:00 04/13/23 08:39 Multivitamin W/Minerals Tablet PO 1 tab DAILYWM CHARANJIT Administration Sodium Chloride 10 ml 04/11/23 01:00 04/13/23 08:40 Sodium Chloride Flush 0.9% 10 Ml Syringe IVP Not Given 0100,0900,1700 CHARANJIT - Lab Result Fish Bone Diagrams: 04/13/23 08:59 04/13/23 08:59 - Additional Planning My Orders: My Active Orders 04/12/23 17:00 dexAMETHasone [Decadron] 4 mg PO BIDWM 04/13/23 Evaluate and Treat OT [OT] Routine Evaluate and Treat PT [PT] Routine 04/14/23 05:00 CBC - COMP BLD CT W/AUTO DIFF [HEME] DAILYLAB CMP [COMPREHENSIVE METABOLIC PANEL] [CHEM] DAILYLAB 04/15/23 05:00 CBC - COMP BLD CT W/AUTO DIFF [HEME] DAILYLAB CMP [COMPREHENSIVE METABOLIC PANEL] [CHEM] DAILYLAB 04/16/23 05:00 CBC - COMP BLD CT W/AUTO DIFF [HEME] DAILYLAB CMP [COMPREHENSIVE METABOLIC PANEL] [CHEM] DAILYLAB 04/17/23 05:00 CBC - COMP BLD CT W/AUTO DIFF [HEME] DAILYLAB CMP [COMPREHENSIVE METABOLIC PANEL] [CHEM] DAILYLAB Subjective - Subjective Patient Reports: Feeling Better Objective Vital Signs: Vital Signs - 24 hr 04/12/23 04/12/23 04/12/23 16:12 20:43 21:00 Temperature 37.4 C 37.8 C Heart Rate [ 107 H 113 H Brachial] Respiratory 20 20 Rate Blood Pressure 108/54 L 123/65 [Left Brachial artery] Blood Pressure [Right Brachial artery] O2 Saturation 98 95 If not protocol 2 2 2 : Oxygen Flow, liters/minute 04/13/23 04/13/23 04/13/23 01:37 06:33 07:42 Temperature 37.1 C 37.2 C Heart Rate [ 105 H 105 H Brachial] Respiratory 16 16 Rate Blood Pressure [Left Brachial artery] Blood Pressure 135/70 H 126/60 [Right Brachial artery] O2 Saturation 96 96 If not protocol 2 2 2 : Oxygen Flow, liters/minute 04/13/23 04/13/23 08:29 08:48 Temperature 36.9 C Heart Rate [ 102 H Brachial] Respiratory 20 Rate Blood Pressure [Left Brachial artery] Blood Pressure 128/62 [Right Brachial artery] O2 Saturation 96 93 If not protocol 2 : Oxygen Flow, liters/minute Oxygen O2 Source Room air Oxygen Flow Rate 4 I&O (Last 24 Hrs): Intake and Output Totals x24h 04/11/23 04/12/23 04/13/23 23:59 23:59 23:59 Intake Total 2596.167 2075.833 986.25 Output Total 525 150 200 Balance 2071.167 1925.833 786.25 General: Alert HEENT: Atraumatic Neck: Supple Neuro: Alert, Non Focal Cardiovascular: Regular rate Respiratory: Chest non-tender Abdomen: Soft Extremities: No edema - Results Results: Laboratory Results WBC 9.1 x10^3/uL (4.8-10.8) 04/13/23 08:59 RBC 3.51 10^6/uL (4.70-6.10) L 04/13/23 08:59 Hgb 9.0 g/dL (14.0-18.0) L 04/13/23 08:59 Hct 30.0 % (42.0-52.0) L 04/13/23 08:59 MCV 85.5 fL (80.0-94.0) 04/13/23 08:59 MCH 25.6 pg (27.0-31.0) L 04/13/23 08:59 MCHC 30.0 g/dL (32.0-36.0) L 04/13/23 08:59 RDW 17.5 % (12.0-15.0) H 04/13/23 08:59 Plt Count 371 10^3/uL (130-450) 04/13/23 08:59 MPV 8.7 fL (7.4-11.4) 04/13/23 08:59 Neut # (Auto) 8.0 10^3/uL (1.5-6.6) H 04/13/23 08:59 Lymph # (Auto) 0.6 10^3/uL (1.5-3.5) L 04/13/23 08:59 [place] # (Auto) 0.4 10^3/uL (0.0-1.0) 04/13/23 08:59 Eos # (Auto) 0.0 10^3/uL (0.0-0.7) 04/13/23 08:59 Baso # (Auto) 0.0 10^3/uL (0.0-0.1) 04/13/23 08:59 Absolute Nucleated RBC 0.00 x10^3/uL 04/13/23 08:59 Nucleated RBC % 0.0 /100WBC 04/13/23 08:59 Sodium 137 mmol/L (135-145) 04/13/23 08:59 Potassium 4.3 mmol/L (3.5-5.0) 04/13/23 08:59 Chloride 100 mmol/L (101-111) L 04/13/23 08:59 Carbon Dioxide 30 mmol/L (21-32) 04/13/23 08:59 Anion Gap 7.0 (6-13) 04/13/23 08:59 BUN 7 mg/dL (6-20) 04/13/23 08:59 Creatinine 0.5 mg/dL (0.6-1.2) L 04/13/23 08:59 Estimated GFR (MDRD) 168 (>89) 04/13/23 08:59 Glucose 136 mg/dL (70-100) H 04/13/23 08:59 Lactic Acid 1.5 mmol/L (0.5-2.2) 04/10/23 16:35 Calcium 8.0 mg/dL (8.5-10.3) L 04/13/23 08:59 Total Bilirubin 0.2 mg/dL (0.2-1.0) 04/13/23 08:59 AST 40 IU/L (10-42) 04/13/23 08:59 ALT 28 IU/L (10-60) 04/13/23 08:59 Alkaline Phosphatase 91 IU/L (42-121) 04/13/23 08:59 Total Protein 5.7 g/dL (6.7-8.2) L 04/13/23 08:59 Albumin 1.9 g/dL (3.2-5.5) L 04/13/23 08:59 Globulin 3.8 g/dL (2.1-4.2) 04/13/23 08:59 Albumin/Globulin Ratio 0.5 (1.0-2.2) L 04/13/23 08:59 Lipase 19 U/L (22-51) L 04/10/23 16:35 Urine Color YELLOW 04/12/23 18:00 Urine Clarity CLEAR (CLEAR) 04/12/23 18:00 Urine pH 5.0 PH (5.0-7.5) 04/12/23 18:00 Ur Specific [place] 1.025 (1.002-1.030) 04/12/23 18:00 Urine Protein NEGATIVE mg/dL (NEGATIVE) 04/12/23 18:00 Urine Glucose (UA) NEGATIVE mg/dL (NEGATIVE) 04/12/23 18:00 Urine Ketones NEGATIVE mg/dL (NEGATIVE) 04/12/23 18:00 Urine Occult Blood NEGATIVE (NEGATIVE) 04/12/23 18:00 Urine Nitrite NEGATIVE (NEGATIVE) 04/12/23 18:00 Urine Bilirubin NEGATIVE (NEGATIVE) 04/12/23 18:00 Urine Urobilinogen 0.2 (NORMAL) E.U./dL (NORMAL) 04/12/23 18:00 Ur Leukocyte Esterase NEGATIVE (NEGATIVE) 04/12/23 18:00 Urine RBC 0-5 /HPF (0-5) 04/12/23 18:00 Urine WBC 0-3 /HPF (0-3) 04/12/23 18:00 Ur Squamous Epith Cells RARE Squamous (<= Few) 04/12/23 18:00 Urine Bacteria Rare /HPF (None Seen) 04/12/23 18:00 Urine Mucus Few Strands 04/12/23 18:00 Urine Culture Comments NOT INDICATED 04/12/23 18:00 Fluid Source PLEURAL 04/10/23 18:30 Fluid Color YELLOW 04/10/23 18:30 Fluid Clarity CLEAR 04/10/23 18:30 Fluid WBC 352 /mm^3 04/10/23 18:30 Fluid RBC < 3000 /mm^3 04/10/23 18:30 Fluid Neutrophils % 21.0 % 04/10/23 18:30 Fluid Lymphocytes % 66.0 % 04/10/23 18:30 Fluid Monocytes % 3.0 % 04/10/23 18:30 Fluid Macrophages % 2.0 % 04/10/23 18:30 Fld Mesothelial Cell % 8.0 % 04/10/23 18:30 Nasal Adenovirus (PCR) NOT DETECTED 04/10/23 20:30 Nasal B. parapertussis DNA (PCR) NOT DETECTED 04/10/23 20:30 Nasal Coronavir 229E PCR NOT DETECTED 04/10/23 20:30 Nasal Coronavir HKU1 PCR NOT DETECTED 04/10/23 20:30 Nasal Coronavir NL63 PCR NOT DETECTED 04/10/23 20:30 Nasal Coronavir OC43 PCR NOT DETECTED 04/10/23 20:30 Nasal Enterovir/Rhinovir PCR NOT DETECTED 04/10/23 20:30 Nasal Influenza B PCR NOT DETECTED 04/10/23 20:30 Nasal Influenza A PCR NOT DETECTED 04/10/23 20:30 Nasal Parainfluen 1 PCR NOT DETECTED 04/10/23 20:30 Nasal Parainfluen 2 PCR NOT DETECTED 04/10/23 20:30 Nasal Parainfluen 3 PCR NOT DETECTED 04/10/23 20:30 Nasal Parainfluen 4 PCR NOT DETECTED 04/10/23 20:30 Nasal RSV (PCR) NOT DETECTED 04/10/23 20:30 Nasal B.pertussis DNA PCR NOT DETECTED 04/10/23 20:30 Nasal C.pneumoniae (PCR) NOT DETECTED 04/10/23 20:30 Estiven Human Metapneumo PCR NOT DETECTED 04/10/23 20:30 Nasal M.pneumoniae (PCR) NOT DETECTED 04/10/23 20:30 Nasal SARS-CoV-2 (PCR) NOT DETECTED 04/10/23 20:30 ABX Reporting Has patient been on IV antibiotics over the past 48 hours?: No Current Medications - Current Medications Current Medications: Active Medications Acetaminophen (Acetaminophen 325 Mg Tablet) 650 mg PO Q4HR PRN PRN Reason: Pain or Fever > 38C (100.4F) Hydrocodone Bitart/Acetaminophen (Hydrocod/Acetam 5/325 Mg Tablet) 1 tab PO Q4HR PRN PRN Reason: Moderate Pain (Level 4-6) Last Admin: 04/12/23 05:42 Dose: 1 tab Albuterol/Ipratropium (Ipratropium/Albuterol 3 Ml Neb) 3 ml INH Q4HR PRN PRN Reason: Wheezing Last Admin: 04/10/23 22:55 Dose: 3 ml Aspirin (Aspirin 325 Mg Tablet) 975 mg PO TID PRN PRN Reason: PAIN 1-4 Clonazepam (Clonazepam 0.5 Mg Tablet) 4 mg PO Q8H [facility] Last Admin: 04/13/23 06:02 Dose: 4 mg Dexamethasone (Dexamethasone 4 Mg Tablet) 4 mg PO BIDWM [facility] Last Admin: 04/13/23 08:39 Dose: 4 mg Enoxaparin Sodium (Enoxaparin 40 Mg/0.4 Ml Syringe) 40 mg SUBQ DAILY [facility] Last Admin: 04/13/23 08:38 Dose: 40 mg Potassium Chloride/Dextrose/Sod Cl (D5ns W/20 Meq Kcl) 1,000 mls @ 75 mls/hr IV .[id number] [facility] Last Admin: 04/13/23 04:04 Dose: 75 mls/hr Morphine Sulfate (Morphine Sulfate Er 30 Mg Tablet) 180 mg PO Q8H [facility] Last Admin: 04/13/23 08:39 Dose: 180 mg Morphine Sulfate (Morphine Er 15 Mg Tablet) 15 mg PO Q8H [facility] Last Admin: 04/13/23 08:39 Dose: 15 mg Multi-Ingredient Ointment (Zinc Oxide 20% Oint 30 Gm Tube) 1 applic TOP PRN PRN PRN Reason: Skin Care Multivitamins/Minerals (Multivitamin W/Minerals Tablet) 1 tab PO DAILYWM [facility] Last Admin: 04/13/23 08:39 Dose: 1 tab Senna (Senna 8.6 Mg Tablet) 8.6 mg PO BID PRN PRN Reason: Constipation Sodium Chloride (Sodium Chloride Flush 0.9% 10 Ml Syringe) 10 ml IVP PRN PRN PRN Reason: NEEDED PER PROVIDER ORDERS Sodium Chloride (Sodium Chloride Flush 0.9% 10 Ml Syringe) 10 ml IVP 0100,0900,1700 [facility] Last Admin: 04/13/23 08:40 Dose: Not Given Acetaminophen [Tylenol] 2 tab PO TID PRN 04/11/23 Aspirin [Ann] 3 tab PO TID PRN 04/11/23 Calcium Carbonate/Vitamin D3 [Calcium 500 mg Chewable Tablet] 2 tab PO DAILY 04/11/23 LORazepam [Lorazepam] 2 tab PO Q8H 04/11/23 Morphine Sulfate [Morphine Sulfate ER] 2 tab PO Q8H 04/11/23 Multivit-Minerals/Folic Acid [Multivitamin Gummies] 2 tab PO DAILY 04/11/23 clonazePAM [Klonopin] 2 tab PO Q8H 04/11/23
--- NOTE | 2023-04-13 15:23 | PROVIDER PROGRESS NOTE ---
Subjective - Prog Note Date Prog Note Date: 04/13/23 - Subjective Subjective: Late entry for 04/12/23: Hospice consult received for pt for post-d/c hospice care per pt's spouse requ est. I sent a text to the Hospitalist MD and recommended the addition of dexamethasone 4 mg BID d/t brain mets. I received a call from SIMONA Hoffman, who has been caring for the patient. He expressed appreciation for the dexamethasone recommendation and wanted to determine when hospice could admit the patient. He hoped to d/c the patient on 04/13/23. Advised that goes through our charge nurse, Ananya and told him I would have her call him directly to update him on scheduling. He had no further questions/concerns. Ananya contacted [facility] and advised we could not admit until 04/16/23 in the afternoon. This am, repair armature winder, Farzana, met w/patient and spouse. They both reported improv ement w/dexamethasone and spouse requested consideration for Rehab SNF for a short time to get pt stronger so she could care for him at home. She wanted to delay hospice admit until after rehab. If rehab wasn't an option, then we would be able to move forward w/hospice admission on 04/16/23. During that visit, both Dr. Delgado and [facility] Mas were present and aware of pt and spouse's desire for SNF placement. MARGARET Yanes spoke to me after her visit and advised pt has good control of pain, improved neuro status w/the addition of the dexamethasone, and had a BM this am. Pt was offered a consult w/Dr. Castro today, but he declined d/t prior personal interactions. I notified Dr. Delgado of above. She expressed concern that a hospice consult had not been done. I advised that MARGARET Yanes is with hospice and the consult was done. Advised that per my discussion w/[facility] yesterday, he had no additional clinical questions for me and thus a Hospice MD consult was not needed. Pt declined to meet w/Dr. Castro today. A hospice MD visit is not necessary for a patient to admit to hospice services. If patient d/c's to [facility] for rehab, he will not be eligible to elect his hospice Medicare benefit until after he returns home if that is consistent with his goals of care. I will be happy to follow-up with the patient either at [facility] (if he discharges there this weekend) or in the hospital on Sunday if he remains on the inpatient service. Objective - Vital Signs/Intake & Output Vital Signs: Vital Signs x48h Temp Pulse Resp BP Pulse Ox O2 Flow Rate 04/13/23 13:00 36.5 C 125 H 22 131/71 H 92 1 04/13/23 08:48 93 04/13/23 08:29 36.9 C 102 H 20 128/62 96 2 04/13/23 07:42 2 Intake & Output: Intake & Output 04/10/23 04/11/23 04/12/23 04/13/23 23:59 23:59 23:59 23:59 Intake Total 1999 2596.167 2075.833 1556.25 Output Total 525 150 500 Balance 1999 2071.167 1768.467 7027.25 - Lab Results Fish Bones: 04/13/23 08:59 04/13/23 08:59 Other Labs: Lab Results x24hrs 04/13/23 04/13/23 04/12/23 Range/Units 08:59 08:59 18:00 WBC 9.1 (4.8-10.8) x10^3/uL RBC 3.51 L (4.70-6.10) 10^6/uL Hgb 9.0 L (14.0-18.0) g/dL Hct 30.0 L (42.0-52.0) % MCV 85.5 (80.0-94.0) fL MCH 25.6 L (27.0-31.0) pg MCHC 30.0 L (32.0-36.0) g/dL RDW 17.5 H (12.0-15.0) % Plt Count 371 (130-450) 10^3/uL MPV 8.7 (7.4-11.4) fL Neut # (Auto) 8.0 H (1.5-6.6) 10^3/uL Lymph # (Auto) 0.6 L (1.5-3.5) 10^3/uL [place] # (Auto) 0.4 (0.0-1.0) 10^3/uL Eos # (Auto) 0.0 (0.0-0.7) 10^3/uL Baso # (Auto) 0.0 (0.0-0.1) 10^3/uL Absolute Nucleated RBC 0.00 x10^3/uL Nucleated RBC % 0.0 /100WBC Sodium 137 (135-145) mmol/L Potassium 4.3 (3.5-5.0) mmol/L Chloride 100 L (101-111) mmol/L Carbon Dioxide 30 (21-32) mmol/L Anion Gap 7.0 (6-13) BUN 7 (6-20) mg/dL Creatinine 0.5 L (0.6-1.2) mg/dL Estimated GFR (MDRD) 168 (>89) Glucose 136 H (70-100) mg/dL Calcium 8.0 L (8.5-10.3) mg/dL Total Bilirubin 0.2 (0.2-1.0) mg/dL AST 40 (10-42) IU/L ALT 28 (10-60) IU/L Alkaline Phosphatase 91 (42-121) IU/L Total Protein 5.7 L (6.7-8.2) g/dL Albumin 1.9 L (3.2-5.5) g/dL Globulin 3.8 (2.1-4.2) g/dL Albumin/Globulin Ratio 0.5 L (1.0-2.2) Urine Color YELLOW Urine Clarity CLEAR (CLEAR) Urine pH 5.0 (5.0-7.5) PH Ur Specific [place] 1.025 (1.002-1.030) Urine Protein NEGATIVE (NEGATIVE) mg/dL Urine Glucose (UA) NEGATIVE (NEGATIVE) mg/dL Urine Ketones NEGATIVE (NEGATIVE) mg/dL Urine Occult Blood NEGATIVE (NEGATIVE) Urine Nitrite NEGATIVE (NEGATIVE) Urine Bilirubin NEGATIVE (NEGATIVE) Urine Urobilinogen 0.2 (NORMAL) (NORMAL) E.U./dL Ur Leukocyte Esterase NEGATIVE (NEGATIVE) Urine RBC 0-5 (0-5) /HPF Urine WBC 0-3 (0-3) /HPF Ur Squamous Epith Cells RARE Squamous (<= Few) Urine Bacteria Rare (None Seen) /HPF Urine Mucus Few Strands Urine Culture Comments NOT INDICATED
[2023-04-13] MEDS: ACETAMINOPHEN 325 MG TABLET PO PRN (20:32)
[2023-04-14] MEDS: clonazePAM 0.5 MG TABLET PO SCH ×3 (06:05→22:29)
[2023-04-14 06:36] LABS: BASOPHILS % (AUTO) 0.1 %; HCT - HEMATOCRIT 28.2 % (42.0-52.0); HGB - HEMOGLOBIN 8.3 g/dL (14.0-18.0); LYMPHOCYTES # (AUTO) 0.6 10^3/uL (1.5-3.5); LYMPHOCYTES % (AUTO) 6.7 %; MEAN CORPUSCULAR HEMOGLOBIN 25.2 pg (27.0-31.0); MEAN CORPUSCULAR HGB CONC 29.4 g/dL (32.0-36.0); MEAN CORPUSCULAR VOLUME 85.5 fL (80.0-94.0); MEAN PLATELET VOLUME 9.3 fL (7.4-11.4); MONOCYTES # (AUTO) 0.4 10^3/uL (0.0-1.0); MONOCYTES % (AUTO) 4.2 %; NEUTROPHILS # (AUTO) 8.4 10^3/uL (1.5-6.6); NEUTROPHILS % (AUTO) 88.4 %; PLT - PLATELET COUNT 389 10^3/uL (130-450); RED CELL DISTRIBUTION WIDTH 17.5 % (12.0-15.0); WHITE BLOOD COUNT 9.5 x10^3/uL (4.8-10.8)
[2023-04-14 06:48] LABS: ALBUMIN 1.9 g/dL (3.2-5.5); ALBUMIN/GLOBULIN RATIO 0.5 (1.0-2.2); BILIRUBIN,TOTAL 0.3 mg/dL (0.2-1.0); CALCIUM 8.4 mg/dL (8.5-10.3); CREATININE 0.5 mg/dL (0.6-1.2); POTASSIUM 4.6 mmol/L (3.5-5.0); TOTAL PROTEIN 5.6 g/dL (6.7-8.2)
[2023-04-14] MEDS: ENOXAPARIN 40 MG/0.4 ML SYRINGE SUBQ SCH (08:17)
[2023-04-14] MEDS: MULTIVITAMIN W/MINERALS TABLET PO SCH (08:17)
[2023-04-14] MEDS: MORPHINE ER 15 MG TABLET PO SCH ×3 (08:17→23:45)
[2023-04-14] MEDS: dexAMETHasone 4 MG TABLET PO SCH ×2 (08:17→16:58)
[2023-04-14] MEDS: MORPHINE SULFATE ER 30 MG TABLET PO SCH ×3 (08:17→23:45)
[2023-04-14] MEDS: SODIUM CHLORIDE FLUSH 0.9% 10 ML SYRINGE IVP SCH ×3 (08:18→23:46)
[2023-04-14] MEDS: D5NS W/20 MEQ KCL 1,000 ML IV SCH ×2 (08:18→22:29)
[2023-04-14] MEDS: CALCIUM CARBONATE CHEW 500 MG TABLET PO PRN (13:57)
[2023-04-14] MEDS: HYDROcod/ACETAM 5/325 MG TABLET PO PRN (22:29)
[2023-04-15] MEDS: MORPHINE ER 15 MG TABLET PO SCH ×3 (00:03→17:36)
[2023-04-15 05:02] LABS: HCT - HEMATOCRIT 27.4 % (42.0-52.0); HGB - HEMOGLOBIN 8.3 g/dL (14.0-18.0); LYMPHOCYTES # (AUTO) 0.6 10^3/uL (1.5-3.5); LYMPHOCYTES % (AUTO) 6.6 %; MEAN CORPUSCULAR HEMOGLOBIN 25.5 pg (27.0-31.0); MEAN CORPUSCULAR HGB CONC 30.3 g/dL (32.0-36.0); MEAN PLATELET VOLUME 8.8 fL (7.4-11.4); MONOCYTES # (AUTO) 0.4 10^3/uL (0.0-1.0); MONOCYTES % (AUTO) 4.9 %; NEUTROPHILS # (AUTO) 7.9 10^3/uL (1.5-6.6); NEUTROPHILS % (AUTO) 88.1 %; PLT - PLATELET COUNT 384 10^3/uL (130-450); RED BLOOD COUNT 3.26 10^6/uL (4.70-6.10); RED CELL DISTRIBUTION WIDTH 17.6 % (12.0-15.0)
[2023-04-15 05:14] LABS: ALBUMIN 1.9 g/dL (3.2-5.5); ALBUMIN/GLOBULIN RATIO 0.5 (1.0-2.2); BILIRUBIN,TOTAL 0.3 mg/dL (0.2-1.0); CALCIUM 8.4 mg/dL (8.5-10.3); CREATININE 0.4 mg/dL (0.6-1.2); POTASSIUM 4.8 mmol/L (3.5-5.0); TOTAL PROTEIN 5.5 g/dL (6.7-8.2)
[2023-04-15] MEDS: clonazePAM 0.5 MG TABLET PO SCH ×3 (06:27→22:10)
--- NOTE | 2023-04-15 08:12 | PROVIDER PROGRESS NOTE ---
Assessment/Plan - Problem List (1) Metastatic primary lung cancer Assessment/Plan: Patient had CT of the chest done 3 weeks ago which showed a mass within right lower lobe, concerning for malignancy (and a tumor poss infiltrated his right atrium). Pt still has had no biopsy. Pt had large right pleural , and pleural fluid was sent for cytology analysis several days ago MRI w/O of Brain fin Pt had symptomatic improvement after patient was started on oral dexamethasone, and after that his requested to explore patient's capacity for gping to rehab for strengthening before coming home. PT/OT evaluations did agree that patient could benefit from rehab at a SNF. Hospice was consulted and control systems drafting officer Marissa, agreed that going to SNF first before being bacceoted by Hospice should be done. Plan: Await cytology from the pleural fluid. Patient and may want to keep the plan for a lung biopsy after discharge, if this cytology from pleural fluid shows nothing conclusive Continue with Decadron (2) Right large pleural effusion Patient had a thoracentesis done by the ER when he was found to have large lower right pleural effusion, Sample was sent to for cytology study, which is still pending. His fluid culture and gram stain were unlikely to be infected. Plan: Await cytology result No indication for therapeutic thoracentesis (3) Lethargy He presented very lethargic and confused. MRI w/O contrast of Brain did find multiple enhancing masses bilaterally suspicious for metastatic disease. Pt also chronically takes significantly high amounts of pain meds and Ativan for his chronic myalgia, which may have added to sx. He improved the day after starting po dexamethasone, advised by Dr Man (of Hospice). Plan: Continue Decadron Continue his usual home doses of morphine and Ativan so he does not withdraw (4)physical deconditioning Patient presents significantly physical deconditioned Plan: As in #1 (5)Anorexia pt has poor appetite and has malnutrition. There has been improvement since Decadron was started. Plan: Continue Decadron We will request Telecommunication Systems Designer to give small frequent meals which is what he is requesting (6) Hx of copd There is no exacerbation, his pulmonary exam is stable Plan: Continue o2 supplement if needed and continue nebs (7) Chronic fatigue syndrome/ myalgia We confirmed with pt's , pt did chronically take significant amount anti- anxiety meds and pain meds at home for his myalgia. Plan: We will resume home anti-anxiety meds and the pain medications - Current Meds Current Meds: Current Medications Generic Name Dose Route Start Last Admin Trade Name Caitie PRN Reason Stop Dose Admin Acetaminophen 650 mg 04/11/23 10:28 04/13/23 20:32 Acetaminophen 325 Mg Tablet PO 650 mg Q4HR PRN Administration Pain or Fever > 38C (100.4F) Hydrocodone Bitart/Acetaminophen 1 tab 04/11/23 10:28 04/14/23 22:29 Hydrocod/Acetam 5/325 Mg Tablet PO 1 tab Q4HR PRN Administration Moderate Pain (Level 4-6) Albuterol/Ipratropium 3 ml 04/10/23 21:17 04/10/23 22:55 Ipratropium/Albuterol 3 Ml Neb INH 3 ml Q4HR PRN Administration Wheezing Calcium Carbonate/Glycine 500 mg 04/14/23 12:53 04/14/23 13:57 Calcium Carbonate Chew 500 Mg Tablet PO 500 mg TID PRN Administration INDIGESTION Clonazepam 4 mg 04/11/23 15:00 04/15/23 06:27 Clonazepam 0.5 Mg Tablet PO 4 mg Q8H CHARANJIT Administration Dexamethasone 4 mg 04/12/23 17:00 04/14/23 16:58 Dexamethasone 4 Mg Tablet PO 4 mg BIDWM CHARANJIT Administration Enoxaparin Sodium 40 mg 04/12/23 09:00 04/14/23 08:17 Enoxaparin 40 Mg/0.4 Ml Syringe SUBQ 40 mg DAILY CHARANJIT Administration Potassium Chloride/Dextrose/Sod Cl 1,000 mls @ 75 mls/hr 04/11/23 15:49 04/14/23 22:29 D5ns W/20 Meq Kcl IV 75 mls/hr .[id number] CHARANJIT Administration Morphine Sulfate 180 mg 04/11/23 16:00 04/14/23 23:45 Morphine Sulfate Er 30 Mg Tablet PO 180 mg Q8H CHARANJIT Administration Morphine Sulfate 15 mg 04/11/23 16:00 04/15/23 00:03 Morphine Er 15 Mg Tablet PO 15 mg Q8H CHARANJIT Administration Multivitamins/Minerals 1 tab 04/12/23 12:00 04/14/23 08:17 Multivitamin W/Minerals Tablet PO 1 tab DAILYWM CHARANJIT Administration Sodium Chloride 10 ml 04/11/23 01:00 04/14/23 23:46 Sodium Chloride Flush 0.9% 10 Ml Syringe IVP Not Given 0100,[id number],1700 CHARANJIT - Lab Result Fish Bone Diagrams: 04/15/23 04:46 04/15/23 04:46 - Additional Planning My Orders: My Active Orders 04/14/23 10:57 Miscellaenous Nursing Order [RC] QSHIFT 04/14/23 12:53 Calcium Carbonate [Tums] 500 mg PO TID PRN Subjective - Subjective Patient Reports: Other (No appetite, feels very tired he says, especially after sitting up in a chair for 2 hours) Objective Vital Signs: Vital Signs - 24 hr 04/14/23 04/14/23 04/14/23 12:13 15:53 20:22 Temperature 37.1 C 37.2 C 37.1 C Heart Rate [ 103 H 101 H 104 H Brachial] Respiratory 18 16 24 Rate Blood Pressure 132/62 H 139/83 H [Left Brachial artery] Blood Pressure 149/76 H [Right Brachial artery] O2 Saturation 94 94 92 04/14/23 23:52 Temperature 37.2 C Heart Rate [ 98 Brachial] Respiratory 18 Rate Blood Pressure [Left Brachial artery] Blood Pressure 137/81 H [Right Brachial artery] O2 Saturation 92 Oxygen O2 Source Room air Oxygen Flow Rate 4 I&O (Last 24 Hrs): Intake and Output Totals x24h 04/13/23 04/14/23 04/15/23 23:59 23:59 23:59 Intake Total 2876.25 2740 Output Total 500 1600 1000 Balance 2376.25 1140 -1000 General: Alert, Oriented x3 HEENT: Mucous membr. moist/pink Neck: Supple Neuro: Alert, Non Focal Cardiovascular: Regular rate Respiratory: No respiratory distress Abdomen: Soft, No tenderness Extremities: No clubbing, No edema, No tenderness/swelling - Results Results: Laboratory Results WBC 9.0 x10^3/uL (4.8-10.8) 04/15/23 04:46 RBC 3.26 10^6/uL (4.70-6.10) L 04/15/23 04:46 Hgb 8.3 g/dL (14.0-18.0) L 04/15/23 04:46 Hct 27.4 % (42.0-52.0) L 04/15/23 04:46 MCV 84.0 fL (80.0-94.0) 04/15/23 04:46 MCH 25.5 pg (27.0-31.0) L 04/15/23 04:46 MCHC 30.3 g/dL (32.0-36.0) L 04/15/23 04:46 RDW 17.6 % (12.0-15.0) H 04/15/23 04:46 Plt Count 384 10^3/uL (130-450) 04/15/23 04:46 MPV 8.8 fL (7.4-11.4) 04/15/23 04:46 Neut # (Auto) 7.9 10^3/uL (1.5-6.6) H 04/15/23 04:46 Lymph # (Auto) 0.6 10^3/uL (1.5-3.5) L 04/15/23 04:46 [place] # (Auto) 0.4 10^3/uL (0.0-1.0) 04/15/23 04:46 Eos # (Auto) 0.0 10^3/uL (0.0-0.7) 04/15/23 04:46 Baso # (Auto) 0.0 10^3/uL (0.0-0.1) 04/15/23 04:46 Absolute Nucleated RBC 0.00 x10^3/uL 04/15/23 04:46 Nucleated RBC % 0.0 /100WBC 04/15/23 04:46 Sodium 135 mmol/L (135-145) 04/15/23 04:46 Potassium 4.8 mmol/L (3.5-5.0) 04/15/23 04:46 Chloride 96 mmol/L (101-111) L 04/15/23 04:46 Carbon Dioxide 31 mmol/L (21-32) 04/15/23 04:46 Anion Gap 8.0 (6-13) 04/15/23 04:46 BUN 8 mg/dL (6-20) 04/15/23 04:46 Creatinine 0.4 mg/dL (0.6-1.2) L 04/15/23 04:46 Estimated GFR (MDRD) 218 (>89) 04/15/23 04:46 Glucose 117 mg/dL (70-100) H 04/15/23 04:46 Lactic Acid 1.5 mmol/L (0.5-2.2) 04/10/23 16:35 Calcium 8.4 mg/dL (8.5-10.3) L 04/15/23 04:46 Total Bilirubin 0.3 mg/dL (0.2-1.0) 04/15/23 04:46 AST 228 IU/L (10-42) H 04/15/23 04:46 ALT 203 IU/L (10-60) H 04/15/23 04:46 Alkaline Phosphatase 108 IU/L (42-121) 04/15/23 04:46 Total Protein 5.5 g/dL (6.7-8.2) L 04/15/23 04:46 Albumin 1.9 g/dL (3.2-5.5) L 04/15/23 04:46 Globulin 3.6 g/dL (2.1-4.2) 04/15/23 04:46 Albumin/Globulin Ratio 0.5 (1.0-2.2) L 04/15/23 04:46 Lipase 19 U/L (22-51) L 04/10/23 16:35 Urine Color YELLOW 04/12/23 18:00 Urine Clarity CLEAR (CLEAR) 04/12/23 18:00 Urine pH 5.0 PH (5.0-7.5) 04/12/23 18:00 Ur Specific [place] 1.025 (1.002-1.030) 04/12/23 18:00 Urine Protein NEGATIVE mg/dL (NEGATIVE) 04/12/23 18:00 Urine Glucose (UA) NEGATIVE mg/dL (NEGATIVE) 04/12/23 18:00 Urine Ketones NEGATIVE mg/dL (NEGATIVE) 04/12/23 18:00 Urine Occult Blood NEGATIVE (NEGATIVE) 04/12/23 18:00 Urine Nitrite NEGATIVE (NEGATIVE) 04/12/23 18:00 Urine Bilirubin NEGATIVE (NEGATIVE) 04/12/23 18:00 Urine Urobilinogen 0.2 (NORMAL) E.U./dL (NORMAL) 04/12/23 18:00 Ur Leukocyte Esterase NEGATIVE (NEGATIVE) 04/12/23 18:00 Urine RBC 0-5 /HPF (0-5) 04/12/23 18:00 Urine WBC 0-3 /HPF (0-3) 04/12/23 18:00 Ur Squamous Epith Cells RARE Squamous (<= Few) 04/12/23 18:00 Urine Bacteria Rare /HPF (None Seen) 04/12/23 18:00 Urine Mucus Few Strands 04/12/23 18:00 Urine Culture Comments NOT INDICATED 04/12/23 18:00 Fluid Source PLEURAL 04/10/23 18:30 Fluid Color YELLOW 04/10/23 18:30 Fluid Clarity CLEAR 04/10/23 18:30 Fluid WBC 352 /mm^3 04/10/23 18:30 Fluid RBC < 3000 /mm^3 04/10/23 18:30 Fluid Neutrophils % 21.0 % 04/10/23 18:30 Fluid Lymphocytes % 66.0 % 04/10/23 18:30 Fluid Monocytes % 3.0 % 04/10/23 18:30 Fluid Macrophages % 2.0 % 04/10/23 18:30 Fld Mesothelial Cell % 8.0 % 04/10/23 18:30 Nasal Adenovirus (PCR) NOT DETECTED 04/10/23 20:30 Nasal B. parapertussis DNA (PCR) NOT DETECTED 04/10/23 20:30 Nasal Coronavir 229E PCR NOT DETECTED 04/10/23 20:30 Nasal Coronavir HKU1 PCR NOT DETECTED 04/10/23 20:30 Nasal Coronavir NL63 PCR NOT DETECTED 04/10/23 20:30 Nasal Coronavir OC43 PCR NOT DETECTED 04/10/23 20:30 Nasal Enterovir/Rhinovir PCR NOT DETECTED 04/10/23 20:30 Nasal Influenza B PCR NOT DETECTED 04/10/23 20:30 Nasal Influenza A PCR NOT DETECTED 04/10/23 20:30 Nasal Parainfluen 1 PCR NOT DETECTED 04/10/23 20:30 Nasal Parainfluen 2 PCR NOT DETECTED 04/10/23 20:30 Nasal Parainfluen 3 PCR NOT DETECTED 04/10/23 20:30 Nasal Parainfluen 4 PCR NOT DETECTED 04/10/23 20:30 Nasal RSV (PCR) NOT DETECTED 04/10/23 20:30 Nasal B.pertussis DNA PCR NOT DETECTED 04/10/23 20:30 Nasal C.pneumoniae (PCR) NOT DETECTED 04/10/23 20:30 Estiven Human Metapneumo PCR NOT DETECTED 04/10/23 20:30 Nasal M.pneumoniae (PCR) NOT DETECTED 04/10/23 20:30 Nasal SARS-CoV-2 (PCR) NOT DETECTED 04/10/23 20:30
[2023-04-15] MEDS: MORPHINE SULFATE ER 30 MG TABLET PO SCH (09:14)
[2023-04-15] MEDS: MULTIVITAMIN W/MINERALS TABLET PO SCH (09:15)
[2023-04-15] MEDS: ENOXAPARIN 40 MG/0.4 ML SYRINGE SUBQ SCH (09:15)
[2023-04-15] MEDS: SODIUM CHLORIDE FLUSH 0.9% 10 ML SYRINGE IVP SCH ×2 (09:15→17:36)
[2023-04-15] MEDS: dexAMETHasone 4 MG TABLET PO SCH ×2 (09:15→17:35)
[2023-04-15] MEDS: D5NS W/20 MEQ KCL 1,000 ML IV SCH ×2 (09:19→22:14)
[2023-04-15] MEDS: CALCIUM CARBONATE CHEW 500 MG TABLET PO PRN (16:52)
[2023-04-15] MEDS: MORPHINE ER 60 MG TABLET PO SCH (17:35)
--- NOTE | 2023-04-15 19:36 | PROVIDER PROGRESS NOTE ---
Assessment/Plan - Problem List (1) Metastatic primary lung cancer Assessment/Plan: Patient had CT of the chest done 3 weeks ago which showed a mass within right lower lobe, concerning for malignancy (and a tumor poss infiltrated his right atrium). Pt still has had no biopsy. Pt had large right pleural , and pleural fluid was sent for cytology analysis several days ago MRI w/O of Brain fin Pt had symptomatic improvement after patient was started on oral dexamethasone, and after that his requested to explore patient's capacity for gping to rehab for strengthening before coming home. PT/OT evaluations did agree that patient could benefit from rehab at a SNF. Hospice was consulted and hospice massage therapist Marissa, agreed that going to SNF first before being bacceoted by Hospice should be done. Plan: Await cytology from the pleural fluid. Patient and may want to keep the plan for a lung biopsy after discharge, if this cytology from pleural fluid shows nothing conclusive Continue with Decadron (2) Right large pleural effusion Patient had a thoracentesis done by the ER when he was found to have large lower right pleural effusion, Sample was sent to for cytology study, which is still pending. His fluid culture and gram stain were unlikely to be infected. Plan: Await cytology result No indication for therapeutic thoracentesis (3) Lethargy He presented very lethargic and confused. MRI w/O contrast of Brain did find multiple enhancing masses bilaterally suspicious for metastatic disease. Pt also chronically takes significantly high amounts of pain meds and Ativan for his chronic myalgia, which may have added to sx. He improved the day after starting po dexamethasone, advised by Dr Man (of Hospice). Even though he is more alert, his main complaint is that of fatigue. Plan: Continue Decadron Continue his usual home doses of morphine and Ativan so he does not withdraw (4) Physical deconditioning Patient presents significantly physical deconditioned Plan: Awaiting for acceptance at a SNF. He is medically cleared for discharge. (5) Anorexia pt has poor appetite and has malnutrition. There has been improvement since Decadron was started. Plan: Continue Decadron We will request [employer] to give small frequent meals which is what he is requesting (6) Hx of copd There is no exacerbation, his pulmonary exam is stable Plan: Continue o2 supplement if needed and continue nebs (7) Chronic fatigue syndrome/ myalgia We confirmed with pt's , pt did chronically take significant amount anti- anxiety meds and pain meds at home for his myalgia. Plan: Cont home anti-anxiety meds and the pain medications - Current Meds Current Meds: Current Medications Generic Name Dose Route Start Last Admin Trade Name Caitie PRN Reason Stop Dose Admin Acetaminophen 650 mg 04/11/23 10:28 04/13/23 20:32 Acetaminophen 325 Mg Tablet PO 650 mg Q4HR PRN Administration Pain or Fever > 38C (100.4F) Hydrocodone Bitart/Acetaminophen 1 tab 04/11/23 10:28 04/14/23 22:29 Hydrocod/Acetam 5/325 Mg Tablet PO 1 tab Q4HR PRN Administration Moderate Pain (Level 4-6) Albuterol/Ipratropium 3 ml 04/10/23 21:17 04/10/23 22:55 Ipratropium/Albuterol 3 Ml Neb INH 3 ml Q4HR PRN Administration Wheezing Calcium Carbonate/Glycine 500 mg 04/14/23 12:53 04/15/23 16:52 Calcium Carbonate Chew 500 Mg Tablet PO 500 mg TID PRN Administration INDIGESTION Clonazepam 4 mg 04/11/23 15:00 04/15/23 14:09 Clonazepam 0.5 Mg Tablet PO 4 mg Q8H CHARANJIT Administration Dexamethasone 4 mg 04/12/23 17:00 04/15/23 17:35 Dexamethasone 4 Mg Tablet PO 4 mg BIDWM CHARANJIT Administration Enoxaparin Sodium 40 mg 04/12/23 09:00 04/15/23 09:15 Enoxaparin 40 Mg/0.4 Ml Syringe SUBQ 40 mg DAILY CHARANJIT Administration Potassium Chloride/Dextrose/Sod Cl 1,000 mls @ 75 mls/hr 04/11/23 15:49 04/15/23 09:19 D5ns W/20 Meq Kcl IV 75 mls/hr .[id number] CHARANJIT Administration Morphine Sulfate 15 mg 04/11/23 16:00 04/15/23 17:36 Morphine Er 15 Mg Tablet PO 15 mg Q8H CHARANJIT Administration Morphine Sulfate 180 mg 04/15/23 16:00 04/15/23 17:35 Morphine Er 60 Mg Tablet PO 180 mg Q8H CHARANJIT Administration Multivitamins/Minerals 1 tab 04/12/23 12:00 04/15/23 09:15 Multivitamin W/Minerals Tablet PO 1 tab DAILYWM [facility] Administration Sodium Chloride 10 ml 04/11/23 01:00 04/15/23 17:36 Sodium Chloride Flush 0.9% 10 Ml Syringe IVP 10 ml 0100,0900,1700 [facility] Administration - Lab Result Fish Bone Diagrams: 04/15/23 04:46 04/15/23 04:46 - Additional Planning My Orders: My Active Orders 04/15/23 18:39 Nutrition Consult [CONS] Routine Subjective - Subjective Patient Reports: Feeling Better (He notices a better appetite. Fatigue is his biggest complaint. He says he cannot finish everything that is brought on his meal trays and wishes he could have smaller frequent meals) Objective Vital Signs: Vital Signs - 24 hr 04/14/23 04/14/23 04/15/23 20:22 23:52 08:00 Temperature 37.1 C 37.2 C 36.5 C Heart Rate [ 104 H 98 99 Brachial] Respiratory 24 18 18 Rate Blood Pressure 139/83 H [Left Brachial artery] Blood Pressure 137/81 H 142/78 H [Right Brachial artery] O2 Saturation 92 92 92 04/15/23 16:00 Temperature 36.7 C Heart Rate [ 95 Brachial] Respiratory 18 Rate Blood Pressure [Left Brachial artery] Blood Pressure 140/72 H [Right Brachial artery] O2 Saturation 93 Oxygen O2 Source Room air Oxygen Flow Rate 4 I&O (Last 24 Hrs): Intake and Output Totals x24h 04/13/23 04/14/23 04/15/23 23:59 23:59 23:59 Intake Total 2876.25 2740 932.5 Output Total 500 1600 3100 Balance 2376.25 1140 -2167.5 General: Alert, Oriented x3, No acute distress, Other (Thin and frail appearing, long hair and long goodson, poorly kempt) HEENT: EOMI, Mucous membr. moist/pink Neck: Supple, No JVD Neuro: Alert, Non Focal Cardiovascular: Regular rate Respiratory: No respiratory distress Abdomen: Normal bowel sounds, Soft Extremities: No clubbing, No edema, No tenderness/swelling - Results Results: Laboratory Results WBC 9.0 x10^3/uL (4.8-10.8) 04/15/23 04:46 RBC 3.26 10^6/uL (4.70-6.10) L 04/15/23 04:46 Hgb 8.3 g/dL (14.0-18.0) L 04/15/23 04:46 Hct 27.4 % (42.0-52.0) L 04/15/23 04:46 MCV 84.0 fL (80.0-94.0) 04/15/23 04:46 MCH 25.5 pg (27.0-31.0) L 04/15/23 04:46 MCHC 30.3 g/dL (32.0-36.0) L 04/15/23 04:46 RDW 17.6 % (12.0-15.0) H 04/15/23 04:46 Plt Count 384 10^3/uL (130-450) 04/15/23 04:46 MPV 8.8 fL (7.4-11.4) 04/15/23 04:46 Neut # (Auto) 7.9 10^3/uL (1.5-6.6) H 04/15/23 04:46 Lymph # (Auto) 0.6 10^3/uL (1.5-3.5) L 04/15/23 04:46 [place] # (Auto) 0.4 10^3/uL (0.0-1.0) 04/15/23 04:46 Eos # (Auto) 0.0 10^3/uL (0.0-0.7) 04/15/23 04:46 Baso # (Auto) 0.0 10^3/uL (0.0-0.1) 04/15/23 04:46 Absolute Nucleated RBC 0.00 x10^3/uL 04/15/23 04:46 Nucleated RBC % 0.0 /100WBC 04/15/23 04:46 Sodium 135 mmol/L (135-145) 04/15/23 04:46 Potassium 4.8 mmol/L (3.5-5.0) 04/15/23 04:46 Chloride 96 mmol/L (101-111) L 04/15/23 04:46 Carbon Dioxide 31 mmol/L (21-32) 04/15/23 04:46 Anion Gap 8.0 (6-13) 04/15/23 04:46 BUN 8 mg/dL (6-20) 04/15/23 04:46 Creatinine 0.4 mg/dL (0.6-1.2) L 04/15/23 04:46 Estimated GFR (MDRD) 218 (>89) 04/15/23 04:46 Glucose 117 mg/dL (70-100) H 04/15/23 04:46 Lactic Acid 1.5 mmol/L (0.5-2.2) 04/10/23 16:35 Calcium 8.4 mg/dL (8.5-10.3) L 04/15/23 04:46 Total Bilirubin 0.3 mg/dL (0.2-1.0) 04/15/23 04:46 AST 228 IU/L (10-42) H 04/15/23 04:46 ALT 203 IU/L (10-60) H 04/15/23 04:46 Alkaline Phosphatase 108 IU/L (42-121) 04/15/23 04:46 Total Protein 5.5 g/dL (6.7-8.2) L 04/15/23 04:46 Albumin 1.9 g/dL (3.2-5.5) L 04/15/23 04:46 Globulin 3.6 g/dL (2.1-4.2) 04/15/23 04:46 Albumin/Globulin Ratio 0.5 (1.0-2.2) L 04/15/23 04:46 Lipase 19 U/L (22-51) L 04/10/23 16:35 Urine Color YELLOW 04/12/23 18:00 Urine Clarity CLEAR (CLEAR) 04/12/23 18:00 Urine pH 5.0 PH (5.0-7.5) 04/12/23 18:00 Ur Specific [place] 1.025 (1.002-1.030) 04/12/23 18:00 Urine Protein NEGATIVE mg/dL (NEGATIVE) 04/12/23 18:00 Urine Glucose (UA) NEGATIVE mg/dL (NEGATIVE) 04/12/23 18:00 Urine Ketones NEGATIVE mg/dL (NEGATIVE) 04/12/23 18:00 Urine Occult Blood NEGATIVE (NEGATIVE) 04/12/23 18:00 Urine Nitrite NEGATIVE (NEGATIVE) 04/12/23 18:00 Urine Bilirubin NEGATIVE (NEGATIVE) 04/12/23 18:00 Urine Urobilinogen 0.2 (NORMAL) E.U./dL (NORMAL) 04/12/23 18:00 Ur Leukocyte Esterase NEGATIVE (NEGATIVE) 04/12/23 18:00 Urine RBC 0-5 /HPF (0-5) 04/12/23 18:00 Urine WBC 0-3 /HPF (0-3) 04/12/23 18:00 Ur Squamous Epith Cells RARE Squamous (<= Few) 04/12/23 18:00 Urine Bacteria Rare /HPF (None Seen) 04/12/23 18:00 Urine Mucus Few Strands 04/12/23 18:00 Urine Culture Comments NOT INDICATED 04/12/23 18:00 Fluid Source PLEURAL 04/10/23 18:30 Fluid Color YELLOW 04/10/23 18:30 Fluid Clarity CLEAR 04/10/23 18:30 Fluid WBC 352 /mm^3 04/10/23 18:30 Fluid RBC < 3000 /mm^3 04/10/23 18:30 Fluid Neutrophils % 21.0 % 04/10/23 18:30 Fluid Lymphocytes % 66.0 % 04/10/23 18:30 Fluid Monocytes % 3.0 % 04/10/23 18:30 Fluid Macrophages % 2.0 % 04/10/23 18:30 Fld Mesothelial Cell % 8.0 % 04/10/23 18:30 Nasal Adenovirus (PCR) NOT DETECTED 04/10/23 20:30 Nasal B. parapertussis DNA (PCR) NOT DETECTED 04/10/23 20:30 Nasal Coronavir 229E PCR NOT DETECTED 04/10/23 20:30 Nasal Coronavir HKU1 PCR NOT DETECTED 04/10/23 20:30 Nasal Coronavir NL63 PCR NOT DETECTED 04/10/23 20:30 Nasal Coronavir OC43 PCR NOT DETECTED 04/10/23 20:30 Nasal Enterovir/Rhinovir PCR NOT DETECTED 04/10/23 20:30 Nasal Influenza B PCR NOT DETECTED 04/10/23 20:30 Nasal Influenza A PCR NOT DETECTED 04/10/23 20:30 Nasal Parainfluen 1 PCR NOT DETECTED 04/10/23 20:30 Nasal Parainfluen 2 PCR NOT DETECTED 04/10/23 20:30 Nasal Parainfluen 3 PCR NOT DETECTED 04/10/23 20:30 Nasal Parainfluen 4 PCR NOT DETECTED 04/10/23 20:30 Nasal RSV (PCR) NOT DETECTED 04/10/23 20:30 Nasal B.pertussis DNA PCR NOT DETECTED 04/10/23 20:30 Nasal C.pneumoniae (PCR) NOT DETECTED 04/10/23 20:30 Estiven Human Metapneumo PCR NOT DETECTED 04/10/23 20:30 Nasal M.pneumoniae (PCR) NOT DETECTED 04/10/23 20:30 Nasal SARS-CoV-2 (PCR) NOT DETECTED 04/10/23 20:30
[2023-04-16] MEDS: MORPHINE ER 15 MG TABLET PO SCH ×3 (00:12→16:05)
[2023-04-16] MEDS: MORPHINE ER 60 MG TABLET PO SCH ×3 (00:12→16:05)
[2023-04-16] MEDS: SODIUM CHLORIDE FLUSH 0.9% 10 ML SYRINGE IVP SCH ×3 (00:15→16:05)
[2023-04-16 06:03] LABS: BASOPHILS % (AUTO) 0.1 %; HCT - HEMATOCRIT 27.9 % (42.0-52.0); HGB - HEMOGLOBIN 8.8 g/dL (14.0-18.0); LYMPHOCYTES % (AUTO) 9.7 %; MEAN CORPUSCULAR HEMOGLOBIN 25.4 pg (27.0-31.0); MEAN CORPUSCULAR HGB CONC 31.5 g/dL (32.0-36.0); MEAN CORPUSCULAR VOLUME 80.6 fL (80.0-94.0); MEAN PLATELET VOLUME 8.6 fL (7.4-11.4); MONOCYTES # (AUTO) 0.9 10^3/uL (0.0-1.0); MONOCYTES % (AUTO) 8.4 %; NEUTROPHILS # (AUTO) 8.6 10^3/uL (1.5-6.6); NEUTROPHILS % (AUTO) 81.2 %; PLT - PLATELET COUNT 420 10^3/uL (130-450); RED BLOOD COUNT 3.46 10^6/uL (4.70-6.10); RED CELL DISTRIBUTION WIDTH 17.5 % (12.0-15.0); WHITE BLOOD COUNT 10.6 x10^3/uL (4.8-10.8)
[2023-04-16 06:12] LABS: ALBUMIN/GLOBULIN RATIO 0.5 (1.0-2.2); BILIRUBIN,TOTAL 0.4 mg/dL (0.2-1.0); CALCIUM 8.4 mg/dL (8.5-10.3); CREATININE 0.4 mg/dL (0.6-1.2); POTASSIUM 4.1 mmol/L (3.5-5.0); TOTAL PROTEIN 5.7 g/dL (6.7-8.2)
[2023-04-16] MEDS: clonazePAM 0.5 MG TABLET PO SCH ×3 (06:39→22:44)
[2023-04-16] MEDS: ENOXAPARIN 40 MG/0.4 ML SYRINGE SUBQ SCH (10:25)
[2023-04-16] MEDS: dexAMETHasone 4 MG TABLET PO SCH ×2 (10:25→16:05)
[2023-04-16] MEDS: MULTIVITAMIN W/MINERALS TABLET PO SCH (10:25)
[2023-04-16] MEDS: HYDROcod/ACETAM 5/325 MG TABLET PO PRN ×3 (12:12→22:49)
--- NOTE | 2023-04-16 12:46 | CONSULTATION NOTE ---
Referring Provider Name of Referring Provider:: Hospitalist Service Consult Date: 04/16/23 History of Present Illness - Admitted From Admitted From:: Home - History Obtained From Records Reviewed: Yes History obtained from: Pt's spouse, Sangita and chart - History of Present Illness HPI Comment/Other: 62 yo male w/hx of fibromyalgia, osteoarthritis of bilateral knees, chronic pain syndrome, and tobacco dependence who initially presented to the ED on 03/22/23 c/o falls, SOB and hemoptysis that had worsened over the prior month. Pt underwent work-up and was found to have a mass to the R base contiguous w/the hilum and possibly invading the Rt atrium and a mild to moderate R pleural effusion. CT Abd/pelvis was also done which revealed a 1.5 cm rectus muscle mass of unknown etiology. He was referred to see his PCP the following day for further work-up and oncologic referral. He returned to the ED on 04/10/23 w/2 days of worsening falls and increasing confusions as well as complaints about some visual changes. EMS was called to the home and noted him to be hypoxic. EMS placed him on supplemental O2. He underwent additional testing in the ED and was found to have bilateral occipital and posterior parietal hypodense lesions thought to be old strokes on CT. Brain MRI was done and revealed multiple bilateral enhancing masses w/vasogenic edema consistent with metastatic disease. CXR revealed interval increase from small to moderate to moderate to large Rt pleural effusion. A diagnostic/therapeutic thoracentesis was done with 1500 cc removed in the ED, for which the cytology has been negative x 1. He was admitted for further care. On 04/12/23, he remained quite confused and his spouse requested Hospice at home. Pt was initiated on dexamethasone 4 mg BID. On 04/13, he was cognitively improved and requested consideration of SNF for rehab to improve his strength/mobility and she could prepare for his return home. He was seen by PT/OT and SNF referral was made. Pt/spouse met w/impregnating machine operator on 04/13 and made primary team was notified by impregnating machine operator of pt/spouse's desire for SNF Rehab at d/c. Contacted pt's spouse, Sangita, this am to determine if she wanted to meet with me to further discuss hospice. She expressed feeling very overwhelmed (needing to bring her 17 yo dog to the vet, who she believes is end of life, having to bomb her house for fleas, dealing with her 's new dx). Advised we didn't have to meet if she was feeling too overwhelmed but she stated she wanted to visit. I advised to call Hospice when she arrives and we could meet. She subsequently contacted me at the Hospice office around 11:20 am. She stated her did not wish to be bothered, but she wanted to meet at the MRI hallway. Met w/Sangita to discuss pt's current dx, treatment, medications, plan of care. She remains concerned about his care needs when he returns home. Wanted to know what equipment hospice would provide as they are on a limited income. She reports pt has chronic pain related to bilateral knee injuries that required surgery and are now "bone on bone" and that he also carries a dx of fibromyalgia. He has prior hx of being prescribed fentanyl patches and had a bad experience. He has also taken methadone in the past and felt it wasn't effective. She notes he was much more active at that time and thinks that could have been why the methadone was not as effective. History - Past Medical History Cardiovascular: reports: Hypertension Endocrine/Autoimmune: reports: HyPOthyroidism Other Past Medical History: COPD, hypokalemia, nicotine dependence. Diagnosed with lung tumor with brain mets recently-no staging as of yet. - Family & Social History Living Situation: With family Meds/Allgy - Home Medications Home Medications: Ambulatory Orders Medication Instructions Recorded Confirmed Acetaminophen [Tylenol] 2 tab PO TID PRN 04/11/23 04/11/23 Aspirin [Ann] 3 tab PO TID PRN 04/11/23 04/11/23 Calcium Carbonate/Vitamin D3 2 tab PO DAILY 04/11/23 04/11/23 [Calcium 500 mg Chewable Tablet] LORazepam [Lorazepam] 2 tab PO Q8H 04/11/23 04/11/23 Morphine Sulfate [Morphine Sulfate 2 tab PO Q8H 04/11/23 04/11/23 ER] Multivit-Minerals/Folic Acid 2 tab PO DAILY 04/11/23 04/11/23 [Multivitamin Gummies] clonazePAM [Klonopin] 2 tab PO Q8H 04/11/23 04/11/23 - Allergies Allergies/Adverse Reactions: Allergies Allergy/AdvReac Type Severity Reaction Status Date / Time No Known Drug Allergies Allergy Verified 03/22/23 14:34 Review of Systems - Other Findings Other Findings: Unable to obtain Exam - Vital Signs Reviewed Vital Signs: Yes Vital Signs: Vital Signs x48h Temp Pulse Resp BP Pulse Ox 04/16/23 07:51 37.3 C 101 H 12 124/59 L 93 - Physical Exam General Appearance: positive: Other (Ill appearing middle aged male, thin, facia l wasting and generalized sarcopenia noted, laying in darkened hospital room) Comments/Other: Pt interacted very little, skin warm/dry when he shook my hand Conclusion/Plan - Lab Results Fish Bones: 04/16/23 05:38 04/16/23 05:38 - Other Other Results/Comments: 1) Metastatic disease, likely lung in origin Pt has not had a tissue dx, but given his long-standing smoking hx, evidence of R lung mass and now brain mets, lung cancer is the most likely etiology. At this time, it is not clear if he will pursue further diagnosis or transition towards comfort directed care. Dexamethasone was added d/t the brain mets and vasogenic edema, which appears to have been helpful. He has significant insomnia and notes he is irritable, so would not increase to 8 mg BID at this time. The insomnia is chronic, and he doesn't feel the current dose has impacted his sleep cycle. Continue same dose for now. Long discussion with that he may require rotation to a different opioid, particularly as his malignancy-related pain worsens. She expresses understandi ng. For now, continue current regimen. 2) R Lung mass w/atrial invasion and pleural effusion Likely primary malignancy given his known smoking hx. He did have rapid accumulation of effusion from 03/22 to 04/10. Could consider repeating CXR to assess the status of his effusion. If it has reaccumulated, would consider a tunneled cath (PleurX) to assist w/mgmt. 3) Acute metabolic encephalopathy D/t brain tumor. Continue dex. 4) Chronic pain syndrome Continue present medication regimen. Will likely require significant titration as his malignancy-related pain worsens as he is likely very opioid tolerant givven his high-dose opioid requirement for 2 decades. 5) Protein calorie malnutrition, Severe Pt is quite thin w/generalized sarcopenia and low albumin state. Likely a component of anorexia-cachexia of malignancy. 6) Transaminitis Evolving during his hospitalization. Depending on goals of care, could consider further work-up. 7) Normocytic anemia No intervention needed at this time. Hgb stable. 8) Fibromyalgia Chronic and stable. 9) OA bilateral knees Chronic, stable. Please note the majority of my visit was with the patient's spouse as pt was asking to be left alone. I did briefly meet with patient and helped him get his gown, IV and blankets repositioned. No directed exam was performed. Pt had no questions/concerns for me.
[2023-04-16] MEDS: D5NS W/20 MEQ KCL 1,000 ML IV SCH (15:17)
--- NOTE | 2023-04-16 17:54 | PROVIDER PROGRESS NOTE ---
Assessment/Plan - Problem List (1) Metastatic primary lung cancer Assessment/Plan: Patient had CT of the chest done 3 weeks ago which showed a mass within right lower lobe, concerning for malignancy (and a tumor poss infiltrated his right atrium). Pt still has had no biopsy. Pt had large right pleural , and pleural fluid was sent for cytology analysis several days ago MRI w/O of Brain fin Pt had symptomatic improvement after patient was started on oral dexamethasone, and after that his requested to explore patient's capacity for gping to rehab for strengthening before coming home. PT/OT evaluations did agree that patient could benefit from rehab at a SNF. Hospice was consulted and hospice team lead Marissa, agreed that going to SNF first before being bacceoted by Hospice should be done. Plan: Await cytology from the pleural fluid. Patient and may want to keep the plan for a lung biopsy after discharge, if this cytology from pleural fluid shows nothing conclusive Continue with Decadron (2) Right atrial mass Assessment/Plan: This is reported on his CT chest. It does not clear if it is extension and invasion right into the pericardium then heart or if it is a separate atrial mass like a myxoma or clot Plan: We will obtain a complete Echocardiogram (Today is Sunday, and our industrial engineering technician is only here Sunday through ) (3) Transaminitis Over the last 3 days he has elevated LFTs which were not present at admission Plan: Further work-up will depend on oncology and the wishes of the patient and the (4) Right large pleural effusion Patient had a thoracentesis done by the ER when he was found to have large lower right pleural effusion, Sample was sent to for cytology study, which is still pending. His fluid culture and gram stain were unlikely to be infected. Plan: Await cytology result No indication for therapeutic thoracentesis (5) Physical deconditioning Patient presents significantly physical deconditioned Plan: Awaiting for acceptance at a SNF. He is medically cleared for discharge. (6) Anorexia pt has poor appetite and has malnutrition. There has been improvement since Decadron was started. Plan: Continue Decadron We will request Residential Real Estate Appraiser to give small frequent meals which is what he is requesting (7) Hx of copd There is no exacerbation, his pulmonary exam is stable Plan: Continue o2 supplement if needed and continue nebs (8) Chronic fatigue syndrome/ myalgia We confirmed with pt's , pt did chronically take significant amount anti-anxiety meds and pain meds at home for his myalgia. Plan: Cont home anti-anxiety meds and the pain medications (9) Lethargy Resolved He presented very lethargic and confused. MRI w/O contrast of Brain did find multiple enhancing masses bilaterally suspicious for metastatic disease. Pt also chronically takes significantly high amounts of pain meds and Ativan for his chronic myalgia, which may have added to sx. He improved the day after starting po dexamethasone, advised by Dr Man (of Hospice). Even though he is more alert, his main complaint is that of fatigue. Plan: Continue Decadron Continue his usual home doses of morphine and Ativan so he does not withdraw - Current Meds Current Meds: Current Medications Generic Name Dose Route Start Last Admin Trade Name Freq PRN Reason Stop Dose Admin Acetaminophen 650 mg 04/11/23 10:28 04/13/23 20:32 Acetaminophen 325 Mg Tablet PO 650 mg Q4HR PRN Administration Pain or Fever > 38C (100.4F) Hydrocodone Bitart/Acetaminophen 1 tab 04/11/23 10:28 04/16/23 17:21 Hydrocod/Acetam 5/325 Mg Tablet PO 1 tab Q4HR PRN Administration Moderate Pain (Level 4-6) Albuterol/Ipratropium 3 ml 04/10/23 21:17 04/10/23 22:55 Ipratropium/Albuterol 3 Ml Neb INH 3 ml Q4HR PRN Administration Wheezing Calcium Carbonate/Glycine 500 mg 04/14/23 12:53 04/15/23 16:52 Calcium Carbonate Chew 500 Mg Tablet PO 500 mg TID PRN Administration INDIGESTION Clonazepam 4 mg 04/11/23 15:00 04/16/23 15:17 Clonazepam 0.5 Mg Tablet PO 4 mg Q8H CHARANJIT Administration Dexamethasone 4 mg 04/12/23 17:00 04/16/23 16:05 Dexamethasone 4 Mg Tablet PO 4 mg BIDWM CHARANJIT Administration Enoxaparin Sodium 40 mg 04/12/23 09:00 04/16/23 10:25 Enoxaparin 40 Mg/0.4 Ml Syringe SUBQ 40 mg DAILY CHARANJIT Administration Potassium Chloride/Dextrose/Sod Cl 1,000 mls @ 75 mls/hr 04/11/23 15:49 04/16/23 15:17 D5ns W/20 Meq Kcl IV 75 mls/hr .[id number] CHARANJIT Administration Morphine Sulfate 15 mg 04/11/23 16:00 04/16/23 16:05 Morphine Er 15 Mg Tablet PO 15 mg Q8H CHARANJIT Administration Morphine Sulfate 180 mg 04/15/23 16:00 04/16/23 16:05 Morphine Er 60 Mg Tablet PO 180 mg Q8H CHARANJIT Administration Multivitamins/Minerals 1 tab 04/12/23 12:00 04/16/23 10:25 Multivitamin W/Minerals Tablet PO 1 tab DAILYWM CHARANJIT Administration Sodium Chloride 10 ml 04/11/23 01:00 04/16/23 16:05 Sodium Chloride Flush 0.9% 10 Ml Syringe IVP 10 ml 0100,0900,1700 CHARANJIT Administration - Lab Result Fish Bone Diagrams: 04/16/23 05:38 04/16/23 05:38 - Additional Planning My Orders: My Active Orders 04/15/23 18:39 Nutrition Consult [CONS] Routine 04/16/23 08:35 Vital Signs - Orthostatic [RC] QSHIFT 04/16/23 17:46 Lactobacillus Rhamnosus GG [Culturelle] 1 cap PO DAILY Lidocaine Topical 4% [Rcvnjf-S-Voh Kit 4%] 1 mg TOP BID PRN 04/17/23 07:00 Echo Transthoracic Complete [ECHO] Routine Subjective - Subjective Patient Reports: Resting Comfortably, Fatigue (Still feels very tired.), Other (He notices improvement in his poor appetite) Objective Vital Signs: Vital Signs - 24 hr 04/15/23 04/16/23 04/16/23 23:17 07:51 15:25 Temperature 37.5 C 37.3 C 36.5 C Heart Rate [ 100 101 H 89 Brachial] Respiratory 18 12 12 Rate Blood Pressure 129/74 [Left Brachial artery] Blood Pressure 113/62 124/59 L [Right Brachial artery] O2 Saturation 93 93 93 Oxygen O2 Source Room air Oxygen Flow Rate 4 I&O (Last 24 Hrs): Intake and Output Totals x24h 04/14/23 04/15/23 04/16/23 23:59 23:59 23:59 Intake Total 2740 2401.25 1580.00 Output Total 1600 5400 2000 Balance 1140 -2998.75 -420.00 General: Alert, Oriented x3, Other (Cachectic, Temporal wasting.) HEENT: Mucous membr. moist/pink Neck: Supple, No JVD Neuro: Alert, Non Focal Respiratory: No respiratory distress Abdomen: Soft, No tenderness Extremities: No clubbing, No edema, No tenderness/swelling - Results Results: Laboratory Results WBC 10.6 x10^3/uL (4.8-10.8) 04/16/23 05:38 RBC 3.46 10^6/uL (4.70-6.10) L 04/16/23 05:38 Hgb 8.8 g/dL (14.0-18.0) L 04/16/23 05:38 Hct 27.9 % (42.0-52.0) L 04/16/23 05:38 MCV 80.6 fL (80.0-94.0) 04/16/23 05:38 MCH 25.4 pg (27.0-31.0) L 04/16/23 05:38 MCHC 31.5 g/dL (32.0-36.0) L 04/16/23 05:38 RDW 17.5 % (12.0-15.0) H 04/16/23 05:38 Plt Count 420 10^3/uL (130-450) 04/16/23 05:38 MPV 8.6 fL (7.4-11.4) 04/16/23 05:38 Neut # (Auto) 8.6 10^3/uL (1.5-6.6) H 04/16/23 05:38 Lymph # (Auto) 1.0 10^3/uL (1.5-3.5) L 04/16/23 05:38 [place] # (Auto) 0.9 10^3/uL (0.0-1.0) 04/16/23 05:38 Eos # (Auto) 0.0 10^3/uL (0.0-0.7) 04/16/23 05:38 Baso # (Auto) 0.0 10^3/uL (0.0-0.1) 04/16/23 05:38 Absolute Nucleated RBC 0.00 x10^3/uL 04/16/23 05:38 Nucleated RBC % 0.0 /100WBC 04/16/23 05:38 Sodium 136 mmol/L (135-145) 04/16/23 05:38 Potassium 4.1 mmol/L (3.5-5.0) 04/16/23 05:38 Chloride 94 mmol/L (101-111) L 04/16/23 05:38 Carbon Dioxide 34 mmol/L (21-32) H 04/16/23 05:38 Anion Gap 8.0 (6-13) 04/16/23 05:38 BUN 8 mg/dL (6-20) 04/16/23 05:38 Creatinine 0.4 mg/dL (0.6-1.2) L 04/16/23 05:38 Estimated GFR (MDRD) 218 (>89) 04/16/23 05:38 Glucose 114 mg/dL (70-100) H 04/16/23 05:38 Lactic Acid 1.5 mmol/L (0.5-2.2) 04/10/23 16:35 Calcium 8.4 mg/dL (8.5-10.3) L 04/16/23 05:38 Total Bilirubin 0.4 mg/dL (0.2-1.0) 04/16/23 05:38 AST 78 IU/L (10-42) H 04/16/23 05:38 ALT 163 IU/L (10-60) H 04/16/23 05:38 Alkaline Phosphatase 113 IU/L (42-121) 04/16/23 05:38 Total Protein 5.7 g/dL (6.7-8.2) L 04/16/23 05:38 Albumin 2.0 g/dL (3.2-5.5) L 04/16/23 05:38 Globulin 3.7 g/dL (2.1-4.2) 04/16/23 05:38 Albumin/Globulin Ratio 0.5 (1.0-2.2) L 04/16/23 05:38 Lipase 19 U/L (22-51) L 04/10/23 16:35 Urine Color YELLOW 04/12/23 18:00 Urine Clarity CLEAR (CLEAR) 04/12/23 18:00 Urine pH 5.0 PH (5.0-7.5) 04/12/23 18:00 Ur Specific [place] 1.025 (1.002-1.030) 04/12/23 18:00 Urine Protein NEGATIVE mg/dL (NEGATIVE) 04/12/23 18:00 Urine Glucose (UA) NEGATIVE mg/dL (NEGATIVE) 04/12/23 18:00 Urine Ketones NEGATIVE mg/dL (NEGATIVE) 04/12/23 18:00 Urine Occult Blood NEGATIVE (NEGATIVE) 04/12/23 18:00 Urine Nitrite NEGATIVE (NEGATIVE) 04/12/23 18:00 Urine Bilirubin NEGATIVE (NEGATIVE) 04/12/23 18:00 Urine Urobilinogen 0.2 (NORMAL) E.U./dL (NORMAL) 04/12/23 18:00 Ur Leukocyte Esterase NEGATIVE (NEGATIVE) 04/12/23 18:00 Urine RBC 0-5 /HPF (0-5) 04/12/23 18:00 Urine WBC 0-3 /HPF (0-3) 04/12/23 18:00 Ur Squamous Epith Cells RARE Squamous (<= Few) 04/12/23 18:00 Urine Bacteria Rare /HPF (None Seen) 04/12/23 18:00 Urine Mucus Few Strands 04/12/23 18:00 Urine Culture Comments NOT INDICATED 04/12/23 18:00 Fluid Source PLEURAL 04/10/23 18:30 Fluid Color YELLOW 04/10/23 18:30 Fluid Clarity CLEAR 04/10/23 18:30 Fluid WBC 352 /mm^3 04/10/23 18:30 Fluid RBC < 3000 /mm^3 04/10/23 18:30 Fluid Neutrophils % 21.0 % 04/10/23 18:30 Fluid Lymphocytes % 66.0 % 04/10/23 18:30 Fluid Monocytes % 3.0 % 04/10/23 18:30 Fluid Macrophages % 2.0 % 04/10/23 18:30 Fld Mesothelial Cell % 8.0 % 04/10/23 18:30 Nasal Adenovirus (PCR) NOT DETECTED 04/10/23 20:30 Nasal B. parapertussis DNA (PCR) NOT DETECTED 04/10/23 20:30 Nasal Coronavir 229E PCR NOT DETECTED 04/10/23 20:30 Nasal Coronavir HKU1 PCR NOT DETECTED 04/10/23 20:30 Nasal Coronavir NL63 PCR NOT DETECTED 04/10/23 20:30 Nasal Coronavir OC43 PCR NOT DETECTED 04/10/23 20:30 Nasal Enterovir/Rhinovir PCR NOT DETECTED 04/10/23 20:30 Nasal Influenza B PCR NOT DETECTED 04/10/23 20:30 Nasal Influenza A PCR NOT DETECTED 04/10/23 20:30 Nasal Parainfluen 1 PCR NOT DETECTED 04/10/23 20:30 Nasal Parainfluen 2 PCR NOT DETECTED 04/10/23 20:30 Nasal Parainfluen 3 PCR NOT DETECTED 04/10/23 20:30 Nasal Parainfluen 4 PCR NOT DETECTED 04/10/23 20:30 Nasal RSV (PCR) NOT DETECTED 04/10/23 20:30 Nasal B.pertussis DNA PCR NOT DETECTED 04/10/23 20:30 Nasal C.pneumoniae (PCR) NOT DETECTED 04/10/23 20:30 Estiven Human Metapneumo PCR NOT DETECTED 04/10/23 20:30 Nasal M.pneumoniae (PCR) NOT DETECTED 04/10/23 20:30 Nasal SARS-CoV-2 (PCR) NOT DETECTED 04/10/23 20:30
[2023-04-16] MEDS: LACTOBACILLUS RHAMNOSUS GG CAPSULE PO SCH (18:08)
[2023-04-16] MEDS: LIDOCAINE OINTMENT 5% 35.44 GM TUBE TOP PRN (19:40)
[2023-04-17] MEDS: MORPHINE ER 15 MG TABLET PO SCH ×4 (00:51→23:49)
[2023-04-17] MEDS: SODIUM CHLORIDE FLUSH 0.9% 10 ML SYRINGE IVP SCH ×4 (00:51→23:50)
[2023-04-17] MEDS: MORPHINE ER 60 MG TABLET PO SCH ×4 (00:51→23:49)
[2023-04-17] MEDS: D5NS W/20 MEQ KCL 1,000 ML IV SCH (04:56)
[2023-04-17] MEDS: clonazePAM 0.5 MG TABLET PO SCH ×3 (06:56→21:41)
[2023-04-17 07:10] LABS: ALBUMIN 2.2 g/dL (3.2-5.5); ALBUMIN/GLOBULIN RATIO 0.6 (1.0-2.2); BILIRUBIN,TOTAL 0.3 mg/dL (0.2-1.0); CREATININE 0.4 mg/dL (0.6-1.2); POTASSIUM 4.1 mmol/L (3.5-5.0); TOTAL PROTEIN 5.8 g/dL (6.7-8.2)
[2023-04-17 07:17] LABS: HCT - HEMATOCRIT 27.1 % (42.0-52.0); HGB - HEMOGLOBIN 8.6 g/dL (14.0-18.0); LYMPHOCYTES # (AUTO) 0.9 10^3/uL (1.5-3.5); LYMPHOCYTES % (AUTO) 9.5 %; MEAN CORPUSCULAR HEMOGLOBIN 25.6 pg (27.0-31.0); MEAN CORPUSCULAR HGB CONC 31.7 g/dL (32.0-36.0); MEAN CORPUSCULAR VOLUME 80.7 fL (80.0-94.0); MEAN PLATELET VOLUME 8.7 fL (7.4-11.4); MONOCYTES # (AUTO) 0.8 10^3/uL (0.0-1.0); NEUTROPHILS # (AUTO) 8.1 10^3/uL (1.5-6.6); NEUTROPHILS % (AUTO) 82.2 %; PLT - PLATELET COUNT 399 10^3/uL (130-450); RED BLOOD COUNT 3.36 10^6/uL (4.70-6.10); RED CELL DISTRIBUTION WIDTH 17.5 % (12.0-15.0); WHITE BLOOD COUNT 9.9 x10^3/uL (4.8-10.8)
[2023-04-17] MEDS: MULTIVITAMIN W/MINERALS TABLET PO SCH (08:40)
[2023-04-17] MEDS: dexAMETHasone 4 MG TABLET PO SCH ×2 (08:40→16:22)
[2023-04-17] MEDS: LACTOBACILLUS RHAMNOSUS GG CAPSULE PO SCH (08:40)
[2023-04-17] MEDS: ENOXAPARIN 40 MG/0.4 ML SYRINGE SUBQ SCH (08:53)
[2023-04-17] MEDS: PANTOPRAZOLE 40 MG TABLET PO SCH (08:53)
--- NOTE | 2023-04-17 13:18 | PROVIDER PROGRESS NOTE ---
Assessment/Plan - Problem List (1) Shortness of breath Assessment/Plan: significantly improved Since the patient had right lung thoracentesis and removal of large pleural effusion. Patient had 93 to 95% oxygen saturation on room air. (2) Metastatic lung cancer possible Assessment/Plan: Patient had CT of the chest done 3 weeks ago which showed a mass within right lower lobe, concerning for malignancy (and a tumor poss infiltrated his right atrium). Pt still has had no biopsy. Pt had large right pleural , and pleural fluid was sent for cytology analysis several days ago which showed negative Malignancy. Both the patient and his are notified this cytology result. MRI w/O of Brain show Multiple enhancing masses bilaterally suspicious for metastatic disease. Both patient and his clearly hope no fine-needle biopsy for patient at this time. Pt had symptomatic improvement after patient was started on oral dexamethasone, and after that his requested to explore patient's capacity for gping to rehab for strengthening before coming home. PT/OT evaluations did agree that patient could benefit from rehab at a SNF. Hospice was consulted and kiln labourer agreed that going to SNF first before being accepted by Hospice should be done. Plan: Continue with Decadron (3) Right atrial mass Assessment/Plan: ECHO study show No right atrium mass (4) Transaminitis improved to close to normal arrange. (5) Right large pleural effusion Patient had a thoracentesis done by the ER when he was found to have large lower right pleural effusion, His fluid culture and gram stain were unlikely to be infected. Cytology of pleural effusion showed negative Malignancy. Since pt has significant improved of his respiratory status, pt had 93-95% Oxygen saturation on room air. No indication for re-therapeutic thoracentesis at this time. (6) Physical deconditioning Patient presents significantly physical deconditioned Plan: Awaiting for acceptance at a SNF. He is medically cleared for discharge. (7) Anorexia pt has poor appetite and has malnutrition. There has been improvement since Decadron was started. Plan: Continue Decadron We will request Lamination Technician to give small frequent meals which is what he is requesting (8) Hx of copd There is no exacerbation, his pulmonary exam is stable Plan: Continue o2 supplement if needed and continue nebs (9) Chronic fatigue syndrome/ myalgia We confirmed with pt's , pt did chronically take significant amount anti- anxiety meds and pain meds at home for his myalgia. Plan: Cont home anti-anxiety meds and the pain medications (10) Lethargy improved Plan: Continue Decadron Continue his usual home doses of morphine and Ativan so he does not withdraw - Current Meds Current Meds: Current Medications Generic Name Dose Route Start Last Admin Trade Name Freq PRN Reason Stop Dose Admin Acetaminophen 650 mg 04/11/23 10:28 04/13/23 20:32 Acetaminophen 325 Mg Tablet PO 650 mg Q4HR PRN Administration Pain or Fever > 38C (100.4F) Hydrocodone Bitart/Acetaminophen 1 tab 04/11/23 10:28 04/16/23 22:49 Hydrocod/Acetam 5/325 Mg Tablet PO 1 tab Q4HR PRN Administration Moderate Pain (Level 4-6) Albuterol/Ipratropium 3 ml 04/10/23 21:17 04/10/23 22:55 Ipratropium/Albuterol 3 Ml Neb INH 3 ml Q4HR PRN Administration Wheezing Calcium Carbonate/Glycine 500 mg 04/14/23 12:53 04/15/23 16:52 Calcium Carbonate Chew 500 Mg Tablet PO 500 mg TID PRN Administration INDIGESTION Clonazepam 4 mg 04/11/23 15:00 04/17/23 06:56 Clonazepam 0.5 Mg Tablet PO 4 mg Q8H CHARANJIT Administration Dexamethasone 4 mg 04/12/23 17:00 04/17/23 08:40 Dexamethasone 4 Mg Tablet PO 4 mg BIDWM CHARANJIT Administration Enoxaparin Sodium 40 mg 04/12/23 09:00 04/17/23 08:53 Enoxaparin 40 Mg/0.4 Ml Syringe SUBQ 40 mg DAILY CHARANJIT Administration Lactobacillus Rhamnosus 1 cap 04/16/23 17:46 04/17/23 08:40 Lactobacillus Rhamnosus Gg Capsule PO 1 cap DAILY CHARANJIT Administration Lidocaine 1 applic 04/16/23 17:57 04/16/23 19:40 Lidocaine Ointment 5% 35.44 Gm Tube TOP 1 applic BID PRN Administration MINOR PAIN Morphine Sulfate 15 mg 04/11/23 16:00 04/17/23 08:40 Morphine Er 15 Mg Tablet PO 15 mg Q8H CHARANJIT Administration Morphine Sulfate 180 mg 04/15/23 16:00 04/17/23 08:40 Morphine Er 60 Mg Tablet PO 180 mg Q8H CHARANJIT Administration Multivitamins/Minerals 1 tab 04/12/23 12:00 04/17/23 08:40 Multivitamin W/Minerals Tablet PO 1 tab DAILYWM CHARANJIT Administration Pantoprazole Sodium 40 mg 04/17/23 08:00 04/17/23 08:53 Pantoprazole 40 Mg Tablet PO 40 mg QDAC CHARANJIT Administration Sodium Chloride 10 ml 04/11/23 01:00 04/17/23 08:41 Sodium Chloride Flush 0.9% 10 Ml Syringe IVP Not Given 0100,0900,1700 CHARANJIT - Lab Result Fish Bone Diagrams: 04/17/23 06:30 04/17/23 06:30 - Additional Planning My Orders: My Active Orders 04/17/23 08:00 Pantoprazole [Protonix] 40 mg PO QDAC Subjective - Subjective Patient Reports: Feeling Better Objective Vital Signs: Vital Signs - 24 hr 04/16/23 04/17/23 04/17/23 15:25 01:00 08:25 Temperature 36.5 C 36.9 C 36.9 C Heart Rate [ 89 91 103 H Brachial] Respiratory 12 16 18 Rate Blood Pressure 129/74 [Left Brachial artery] Blood Pressure 132/77 H 122/67 [Right Brachial artery] O2 Saturation 93 95 94 Oxygen O2 Source Room air Oxygen Flow Rate 4 I&O (Last 24 Hrs): Intake and Output Totals x24h 04/15/23 04/16/23 04/17/23 23:59 23:59 23:59 Intake Total 2401.25 2191.25 918.75 Output Total 5400 2000 250 Balance -2998.75 191.25 668.75 General: Alert, No acute distress HEENT: Atraumatic Neck: Supple Neuro: Alert, Non Focal Cardiovascular: Regular rate, Normal S1, Normal S2 Respiratory: Chest non-tender, No respiratory distress Abdomen: Normal bowel sounds, Soft Extremities: No edema - Results Results: Laboratory Results WBC 9.9 x10^3/uL (4.8-10.8) 04/17/23 06:30 RBC 3.36 10^6/uL (4.70-6.10) L 04/17/23 06:30 Hgb 8.6 g/dL (14.0-18.0) L 04/17/23 06:30 Hct 27.1 % (42.0-52.0) L 04/17/23 06:30 MCV 80.7 fL (80.0-94.0) 04/17/23 06:30 MCH 25.6 pg (27.0-31.0) L 04/17/23 06:30 MCHC 31.7 g/dL (32.0-36.0) L 04/17/23 06:30 RDW 17.5 % (12.0-15.0) H 04/17/23 06:30 Plt Count 399 10^3/uL (130-450) 04/17/23 06:30 MPV 8.7 fL (7.4-11.4) 04/17/23 06:30 Neut # (Auto) 8.1 10^3/uL (1.5-6.6) H 04/17/23 06:30 Lymph # (Auto) 0.9 10^3/uL (1.5-3.5) L 04/17/23 06:30 [place] # (Auto) 0.8 10^3/uL (0.0-1.0) 04/17/23 06:30 Eos # (Auto) 0.0 10^3/uL (0.0-0.7) 04/17/23 06:30 Baso # (Auto) 0.0 10^3/uL (0.0-0.1) 04/17/23 06:30 Absolute Nucleated RBC 0.00 x10^3/uL 04/17/23 06:30 Nucleated RBC % 0.0 /100WBC 04/17/23 06:30 Sodium 135 mmol/L (135-145) 04/17/23 06:30 Potassium 4.1 mmol/L (3.5-5.0) 04/17/23 06:30 Chloride 96 mmol/L (101-111) L 04/17/23 06:30 Carbon Dioxide 33 mmol/L (21-32) H 04/17/23 06:30 Anion Gap 6.0 (6-13) 04/17/23 06:30 BUN 10 mg/dL (6-20) 04/17/23 06:30 Creatinine 0.4 mg/dL (0.6-1.2) L 04/17/23 06:30 Estimated GFR (MDRD) 218 (>89) 04/17/23 06:30 Glucose 121 mg/dL (70-100) H 04/17/23 06:30 Lactic Acid 1.5 mmol/L (0.5-2.2) 04/10/23 16:35 Calcium 8.0 mg/dL (8.5-10.3) L 04/17/23 06:30 Total Bilirubin 0.3 mg/dL (0.2-1.0) 04/17/23 06:30 AST 34 IU/L (10-42) 04/17/23 06:30 ALT 114 IU/L (10-60) H 04/17/23 06:30 Alkaline Phosphatase 110 IU/L (42-121) 04/17/23 06:30 Total Protein 5.8 g/dL (6.7-8.2) L 04/17/23 06:30 Albumin 2.2 g/dL (3.2-5.5) L 04/17/23 06:30 Globulin 3.6 g/dL (2.1-4.2) 04/17/23 06:30 Albumin/Globulin Ratio 0.6 (1.0-2.2) L 04/17/23 06:30 Lipase 19 U/L (22-51) L 04/10/23 16:35 Urine Color YELLOW 04/12/23 18:00 Urine Clarity CLEAR (CLEAR) 04/12/23 18:00 Urine pH 5.0 PH (5.0-7.5) 04/12/23 18:00 Ur Specific [place] 1.025 (1.002-1.030) 04/12/23 18:00 Urine Protein NEGATIVE mg/dL (NEGATIVE) 04/12/23 18:00 Urine Glucose (UA) NEGATIVE mg/dL (NEGATIVE) 04/12/23 18:00 Urine Ketones NEGATIVE mg/dL (NEGATIVE) 04/12/23 18:00 Urine Occult Blood NEGATIVE (NEGATIVE) 04/12/23 18:00 Urine Nitrite NEGATIVE (NEGATIVE) 04/12/23 18:00 Urine Bilirubin NEGATIVE (NEGATIVE) 04/12/23 18:00 Urine Urobilinogen 0.2 (NORMAL) E.U./dL (NORMAL) 04/12/23 18:00 Ur Leukocyte Esterase NEGATIVE (NEGATIVE) 04/12/23 18:00 Urine RBC 0-5 /HPF (0-5) 04/12/23 18:00 Urine WBC 0-3 /HPF (0-3) 04/12/23 18:00 Ur Squamous Epith Cells RARE Squamous (<= Few) 04/12/23 18:00 Urine Bacteria Rare /HPF (None Seen) 04/12/23 18:00 Urine Mucus Few Strands 04/12/23 18:00 Urine Culture Comments NOT INDICATED 04/12/23 18:00 Fluid Source PLEURAL 04/10/23 18:30 Fluid Color YELLOW 04/10/23 18:30 Fluid Clarity CLEAR 04/10/23 18:30 Fluid WBC 352 /mm^3 04/10/23 18:30 Fluid RBC < 3000 /mm^3 04/10/23 18:30 Fluid Neutrophils % 21.0 % 04/10/23 18:30 Fluid Lymphocytes % 66.0 % 04/10/23 18:30 Fluid Monocytes % 3.0 % 04/10/23 18:30 Fluid Macrophages % 2.0 % 04/10/23 18:30 Fld Mesothelial Cell % 8.0 % 04/10/23 18:30 Nasal Adenovirus (PCR) NOT DETECTED 04/10/23 20:30 Nasal B. parapertussis DNA (PCR) NOT DETECTED 04/10/23 20:30 Nasal Coronavir 229E PCR NOT DETECTED 04/10/23 20:30 Nasal Coronavir HKU1 PCR NOT DETECTED 04/10/23 20:30 Nasal Coronavir NL63 PCR NOT DETECTED 04/10/23 20:30 Nasal Coronavir OC43 PCR NOT DETECTED 04/10/23 20:30 Nasal Enterovir/Rhinovir PCR NOT DETECTED 04/10/23 20:30 Nasal Influenza B PCR NOT DETECTED 04/10/23 20:30 Nasal Influenza A PCR NOT DETECTED 04/10/23 20:30 Nasal Parainfluen 1 PCR NOT DETECTED 04/10/23 20:30 Nasal Parainfluen 2 PCR NOT DETECTED 04/10/23 20:30 Nasal Parainfluen 3 PCR NOT DETECTED 04/10/23 20:30 Nasal Parainfluen 4 PCR NOT DETECTED 04/10/23 20:30 Nasal RSV (PCR) NOT DETECTED 04/10/23 20:30 Nasal B.pertussis DNA PCR NOT DETECTED 04/10/23 20:30 Nasal C.pneumoniae (PCR) NOT DETECTED 04/10/23 20:30 Estiven Human Metapneumo PCR NOT DETECTED 04/10/23 20:30 Nasal M.pneumoniae (PCR) NOT DETECTED 04/10/23 20:30 Nasal SARS-CoV-2 (PCR) NOT DETECTED 04/10/23 20:30 ABX Reporting Has patient been on IV antibiotics over the past 48 hours?: No Current Medications - Current Medications Current Medications: Active Medications Acetaminophen (Acetaminophen 325 Mg Tablet) 650 mg PO Q4HR PRN PRN Reason: Pain or Fever > 38C (100.4F) Last Admin: 04/13/23 20:32 Dose: 650 mg Hydrocodone Bitart/Acetaminophen (Hydrocod/Acetam 5/325 Mg Tablet) 1 tab PO Q4HR PRN PRN Reason: Moderate Pain (Level 4-6) Last Admin: 04/16/23 22:49 Dose: 1 tab Albuterol/Ipratropium (Ipratropium/Albuterol 3 Ml Neb) 3 ml INH Q4HR PRN PRN Reason: Wheezing Last Admin: 04/10/23 22:55 Dose: 3 ml Aspirin (Aspirin 325 Mg Tablet) 975 mg PO TID PRN PRN Reason: PAIN 1-4 Calcium Carbonate/Glycine (Calcium Carbonate Chew 500 Mg Tablet) 500 mg PO TID PRN PRN Reason: INDIGESTION Last Admin: 04/15/23 16:52 Dose: 500 mg Clonazepam (Clonazepam 0.5 Mg Tablet) 4 mg PO Q8H [facility] Last Admin: 04/17/23 06:56 Dose: 4 mg Dexamethasone (Dexamethasone 4 Mg Tablet) 4 mg PO BIDWM [facility] Last Admin: 04/17/23 08:40 Dose: 4 mg Enoxaparin Sodium (Enoxaparin 40 Mg/0.4 Ml Syringe) 40 mg SUBQ DAILY [facility] Last Admin: 04/17/23 08:53 Dose: 40 mg Lactobacillus Rhamnosus (Lactobacillus Rhamnosus Gg Capsule) 1 cap PO DAILY [facility] Last Admin: 04/17/23 08:40 Dose: 1 cap Lidocaine (Lidocaine Ointment 5% 35.44 Gm Tube) 1 applic TOP BID PRN PRN Reason: MINOR PAIN Last Admin: 04/16/23 19:40 Dose: 1 applic Morphine Sulfate (Morphine Er 15 Mg Tablet) 15 mg PO Q8H [facility] Last Admin: 04/17/23 08:40 Dose: 15 mg Morphine Sulfate (Morphine Er 60 Mg Tablet) 180 mg PO Q8H [facility] Last Admin: 04/17/23 08:40 Dose: 180 mg Multi-Ingredient Ointment (Zinc Oxide 20% Oint 30 Gm Tube) 1 applic TOP PRN PRN PRN Reason: Skin Care Multivitamins/Minerals (Multivitamin W/Minerals Tablet) 1 tab PO DAILYWM [facility] Last Admin: 04/17/23 08:40 Dose: 1 tab Pantoprazole Sodium (Pantoprazole 40 Mg Tablet) 40 mg PO QDAC [facility] Last Admin: 04/17/23 08:53 Dose: 40 mg Senna (Senna 8.6 Mg Tablet) 8.6 mg PO BID PRN PRN Reason: Constipation Sodium Chloride (Sodium Chloride Flush 0.9% 10 Ml Syringe) 10 ml IVP PRN PRN PRN Reason: NEEDED PER PROVIDER ORDERS Sodium Chloride (Sodium Chloride Flush 0.9% 10 Ml Syringe) 10 ml IVP 0100,0900,1700 [facility] Last Admin: 04/17/23 08:41 Dose: Not Given Acetaminophen [Tylenol] 2 tab PO TID PRN 04/11/23 Aspirin [Ann] 3 tab PO TID PRN 04/11/23 Calcium Carbonate/Vitamin D3 [Calcium 500 mg Chewable Tablet] 2 tab PO DAILY 04/11/23 LORazepam [Lorazepam] 2 tab PO Q8H 04/11/23 Morphine Sulfate [Morphine Sulfate ER] 2 tab PO Q8H 04/11/23 Multivit-Minerals/Folic Acid [Multivitamin Gummies] 2 tab PO DAILY 04/11/23 clonazePAM [Klonopin] 2 tab PO Q8H 04/11/23
[2023-04-18] MEDS: PANTOPRAZOLE 40 MG TABLET PO SCH (05:41)
[2023-04-18] MEDS: HYDROcod/ACETAM 5/325 MG TABLET PO PRN ×2 (05:41→22:24)
[2023-04-18] MEDS: clonazePAM 0.5 MG TABLET PO SCH ×3 (06:41→22:24)
[2023-04-18 07:26] LABS: BASOPHILS % (AUTO) 0.1 %; HCT - HEMATOCRIT 29.7 % (42.0-52.0); HGB - HEMOGLOBIN 9.2 g/dL (14.0-18.0); LYMPHOCYTES # (AUTO) 1.3 10^3/uL (1.5-3.5); LYMPHOCYTES % (AUTO) 9.8 %; MEAN CORPUSCULAR HEMOGLOBIN 25.7 pg (27.0-31.0); MEAN PLATELET VOLUME 8.5 fL (7.4-11.4); MONOCYTES % (AUTO) 7.3 %; NEUTROPHILS # (AUTO) 10.7 10^3/uL (1.5-6.6); NEUTROPHILS % (AUTO) 81.4 %; PLT - PLATELET COUNT 422 10^3/uL (130-450); RED BLOOD COUNT 3.58 10^6/uL (4.70-6.10); RED CELL DISTRIBUTION WIDTH 17.7 % (12.0-15.0); WHITE BLOOD COUNT 13.2 x10^3/uL (4.8-10.8)
[2023-04-18 07:32] LABS: POTASSIUM 4.1 mmol/L (3.5-5.0)
[2023-04-18 07:33] LABS: ALBUMIN 2.3 g/dL (3.2-5.5); ALBUMIN/GLOBULIN RATIO 0.6 (1.0-2.2); BILIRUBIN,TOTAL 0.4 mg/dL (0.2-1.0); CALCIUM 8.3 mg/dL (8.5-10.3); CREATININE 0.4 mg/dL (0.6-1.2); TOTAL PROTEIN 6.1 g/dL (6.7-8.2)
[2023-04-18] MEDS: MULTIVITAMIN W/MINERALS TABLET PO SCH (08:42)
[2023-04-18] MEDS: MORPHINE ER 60 MG TABLET PO SCH ×2 (08:42→16:05)
[2023-04-18] MEDS: ENOXAPARIN 40 MG/0.4 ML SYRINGE SUBQ SCH (08:42)
[2023-04-18] MEDS: MORPHINE ER 15 MG TABLET PO SCH ×2 (08:42→16:03)
[2023-04-18] MEDS: dexAMETHasone 4 MG TABLET PO SCH ×2 (08:43→17:59)
[2023-04-18] MEDS: LIDOCAINE OINTMENT 5% 35.44 GM TUBE TOP PRN (08:43)
[2023-04-18] MEDS: LACTOBACILLUS RHAMNOSUS GG CAPSULE PO SCH (08:43)
[2023-04-18] MEDS: SODIUM CHLORIDE FLUSH 0.9% 10 ML SYRINGE IVP SCH ×2 (08:46→16:03)
--- NOTE | 2023-04-18 10:58 | PROVIDER PROGRESS NOTE ---
Assessment/Plan - Problem List (1) Shortness of breath Assessment/Plan: significantly improved Since the patient had right lung thoracentesis and removal of large pleural effusion. Patient had 98% oxygen saturation on room air. pt has no Respiratory distress. (2) Metastatic lung cancer possible Assessment/Plan: Patient had CT of the chest done 3 weeks ago which showed a mass within right lower lobe, concerning for malignancy (and a tumor poss infiltrated his right atrium). Pt still has had no biopsy. Pt had large right pleural , and pleural fluid was sent for cytology analysis several days ago which showed negative Malignancy. Both the patient and his are notified this cytology result. MRI w/O of Brain show Multiple enhancing masses bilaterally suspicious for metastatic disease. Both patient and his clearly hope no fine-needle biopsy for patient at this time. Pt had symptomatic improvement after patient was started on oral dexamethasone, and after that his requested to explore patient's capacity for gping to rehab for strengthening before coming home. PT/OT evaluations did agree that patient could benefit from rehab at a SNF. Hospice was consulted and assistant corporation counsel agreed that going to SNF first before being accepted by Hospice should be done. Plan: Continue with Decadron (3) Right atrial mass Assessment/Plan: ECHO study show No right atrium mass (4) Transaminitis improved to close to normal arrange. (5) Right large pleural effusion Patient had a thoracentesis done by the ER when he was found to have large lower right pleural effusion, His fluid culture and gram stain were unlikely to be infected. Cytology of pleural effusion showed negative Malignancy. Since pt has significant improved of his respiratory status, pt had 98% Oxygen saturation on room air. Patient had no respiratory distress. Hold CXR. (6) Physical deconditioning Patient presents significantly physical deconditioned Plan: Awaiting for acceptance at a SNF. He is medically cleared for discharge. (7) Anorexia pt has poor appetite and has malnutrition. There has been improvement since Decadron was started. Plan: Continue Decadron We will request Seam Press Operator to give small frequent meals which is what he is requesting (8) Hx of copd There is no exacerbation, his pulmonary exam is stable Plan: Continue o2 supplement if needed and continue nebs (9) Chronic fatigue syndrome/ myalgia We confirmed with pt's , pt did chronically take significant amount anti- anxiety meds and pain meds at home for his myalgia. Plan: Cont home anti-anxiety meds and the pain medications (10) Lethargy improved Plan: Continue Decadron Continue his usual home doses of morphine and Ativan so he does not withdraw - Current Meds Current Meds: Current Medications Generic Name Dose Route Start Last Admin Trade Name Caitie PRN Reason Stop Dose Admin Acetaminophen 650 mg 04/11/23 10:28 04/13/23 20:32 Acetaminophen 325 Mg Tablet PO 650 mg Q4HR PRN Administration Pain or Fever > 38C (100.4F) Hydrocodone Bitart/Acetaminophen 1 tab 04/11/23 10:28 04/18/23 05:41 Hydrocod/Acetam 5/325 Mg Tablet PO 1 tab Q4HR PRN Administration Moderate Pain (Level 4-6) Albuterol/Ipratropium 3 ml 04/10/23 21:17 04/10/23 22:55 Ipratropium/Albuterol 3 Ml Neb INH 3 ml Q4HR PRN Administration Wheezing Calcium Carbonate/Glycine 500 mg 04/14/23 12:53 04/15/23 16:52 Calcium Carbonate Chew 500 Mg Tablet PO 500 mg TID PRN Administration INDIGESTION Clonazepam 4 mg 04/11/23 15:00 04/18/23 06:41 Clonazepam 0.5 Mg Tablet PO 4 mg Q8H CHARANJIT Administration Dexamethasone 4 mg 04/12/23 17:00 04/18/23 08:43 Dexamethasone 4 Mg Tablet PO 4 mg BIDWM CHARANJIT Administration Enoxaparin Sodium 40 mg 04/12/23 09:00 04/18/23 08:42 Enoxaparin 40 Mg/0.4 Ml Syringe SUBQ 40 mg DAILY CHARANJIT Administration Lactobacillus Rhamnosus 1 cap 04/16/23 17:46 04/18/23 08:43 Lactobacillus Rhamnosus Gg Capsule PO 1 cap DAILY CHARANJIT Administration Lidocaine 1 applic 04/16/23 17:57 04/16/23 19:40 Lidocaine Ointment 5% 35.44 Gm Tube TOP 1 applic BID PRN Administration MINOR PAIN Morphine Sulfate 15 mg 04/11/23 16:00 04/18/23 08:42 Morphine Er 15 Mg Tablet PO 15 mg Q8H CHARANJIT Administration Morphine Sulfate 180 mg 04/15/23 16:00 04/18/23 08:42 Morphine Er 60 Mg Tablet PO 180 mg Q8H CHARANJIT Administration Multivitamins/Minerals 1 tab 04/12/23 12:00 04/18/23 08:42 Multivitamin W/Minerals Tablet PO 1 tab DAILYWM CHARANJIT Administration Pantoprazole Sodium 40 mg 04/17/23 08:00 04/18/23 05:41 Pantoprazole 40 Mg Tablet PO 40 mg QDAC CHARANJIT Administration Sodium Chloride 10 ml 04/11/23 01:00 04/18/23 08:46 Sodium Chloride Flush 0.9% 10 Ml Syringe IVP 10 ml 0100,0900,1700 CHARANJIT Administration - Lab Result Fish Bone Diagrams: 04/18/23 07:05 04/18/23 07:05 - Additional Planning My Orders: My Active Orders 04/19/23 05:00 CBC - COMP BLD CT W/AUTO DIFF [HEME] DAILYLAB CMP [COMPREHENSIVE METABOLIC PANEL] [CHEM] DAILYLAB 04/20/23 05:00 CBC - COMP BLD CT W/AUTO DIFF [HEME] DAILYLAB CMP [COMPREHENSIVE METABOLIC PANEL] [CHEM] DAILYLAB 04/21/23 05:00 CBC - COMP BLD CT W/AUTO DIFF [HEME] DAILYLAB CMP [COMPREHENSIVE METABOLIC PANEL] [CHEM] DAILYLAB 04/22/23 05:00 CBC - COMP BLD CT W/AUTO DIFF [HEME] DAILYLAB CMP [COMPREHENSIVE METABOLIC PANEL] [CHEM] DAILYLAB Subjective - Subjective Patient Reports: Feeling Better Objective Vital Signs: Vital Signs - 24 hr 04/17/23 04/18/23 04/18/23 15:24 00:00 08:00 Temperature 36.8 C 37.1 C 37.0 C Heart Rate [ 110 H 96 74 Brachial] Respiratory 24 16 18 Rate Blood Pressure 139/64 H [Left Brachial artery] Blood Pressure 131/72 H 116/70 [Right Brachial artery] O2 Saturation 96 93 98 Oxygen O2 Source Room air Oxygen Flow Rate 4 I&O (Last 24 Hrs): Intake and Output Totals x24h 04/16/23 04/17/23 04/18/23 23:59 23:59 23:59 Intake Total 2191.25 3015.75 100 Output Total 2000 650 300 Balance 191.25 2365.75 -200 General: Alert, Cooperative, No acute distress HEENT: Atraumatic Neck: Supple Neuro: Alert, Non Focal, Oriented Times 3 Cardiovascular: Regular rate, Normal S1, Normal S2 Respiratory: Chest non-tender, No respiratory distress Abdomen: Normal bowel sounds, Soft Extremities: No edema - Results Results: Laboratory Results WBC 13.2 x10^3/uL (4.8-10.8) H 04/18/23 07:05 RBC 3.58 10^6/uL (4.70-6.10) L 04/18/23 07:05 Hgb 9.2 g/dL (14.0-18.0) L 04/18/23 07:05 Hct 29.7 % (42.0-52.0) L 04/18/23 07:05 MCV 83.0 fL (80.0-94.0) 04/18/23 07:05 MCH 25.7 pg (27.0-31.0) L 04/18/23 07:05 MCHC 31.0 g/dL (32.0-36.0) L 04/18/23 07:05 RDW 17.7 % (12.0-15.0) H 04/18/23 07:05 Plt Count 422 10^3/uL (130-450) 04/18/23 07:05 MPV 8.5 fL (7.4-11.4) 04/18/23 07:05 Neut # (Auto) 10.7 10^3/uL (1.5-6.6) H 04/18/23 07:05 Lymph # (Auto) 1.3 10^3/uL (1.5-3.5) L 04/18/23 07:05 [place] # (Auto) 1.0 10^3/uL (0.0-1.0) 04/18/23 07:05 Eos # (Auto) 0.0 10^3/uL (0.0-0.7) 04/18/23 07:05 Baso # (Auto) 0.0 10^3/uL (0.0-0.1) 04/18/23 07:05 Absolute Nucleated RBC 0.00 x10^3/uL 04/18/23 07:05 Nucleated RBC % 0.0 /100WBC 04/18/23 07:05 Sodium 134 mmol/L (135-145) L 04/18/23 07:05 Potassium 4.1 mmol/L (3.5-5.0) 04/18/23 07:05 Chloride 94 mmol/L (101-111) L 04/18/23 07:05 Carbon Dioxide 32 mmol/L (21-32) 04/18/23 07:05 Anion Gap 8.0 (6-13) 04/18/23 07:05 BUN 11 mg/dL (6-20) 04/18/23 07:05 Creatinine 0.4 mg/dL (0.6-1.2) L 04/18/23 07:05 Estimated GFR (MDRD) 218 (>89) 04/18/23 07:05 Glucose 112 mg/dL (70-100) H 04/18/23 07:05 Lactic Acid 1.5 mmol/L (0.5-2.2) 04/10/23 16:35 Calcium 8.3 mg/dL (8.5-10.3) L 04/18/23 07:05 Total Bilirubin 0.4 mg/dL (0.2-1.0) 04/18/23 07:05 AST 39 IU/L (10-42) 04/18/23 07:05 ALT 111 IU/L (10-60) H 04/18/23 07:05 Alkaline Phosphatase 110 IU/L (42-121) 04/18/23 07:05 Total Protein 6.1 g/dL (6.7-8.2) L 04/18/23 07:05 Albumin 2.3 g/dL (3.2-5.5) L 04/18/23 07:05 Globulin 3.8 g/dL (2.1-4.2) 04/18/23 07:05 Albumin/Globulin Ratio 0.6 (1.0-2.2) L 04/18/23 07:05 Lipase 19 U/L (22-51) L 04/10/23 16:35 Urine Color YELLOW 04/12/23 18:00 Urine Clarity CLEAR (CLEAR) 04/12/23 18:00 Urine pH 5.0 PH (5.0-7.5) 04/12/23 18:00 Ur Specific [place] 1.025 (1.002-1.030) 04/12/23 18:00 Urine Protein NEGATIVE mg/dL (NEGATIVE) 04/12/23 18:00 Urine Glucose (UA) NEGATIVE mg/dL (NEGATIVE) 04/12/23 18:00 Urine Ketones NEGATIVE mg/dL (NEGATIVE) 04/12/23 18:00 Urine Occult Blood NEGATIVE (NEGATIVE) 04/12/23 18:00 Urine Nitrite NEGATIVE (NEGATIVE) 04/12/23 18:00 Urine Bilirubin NEGATIVE (NEGATIVE) 04/12/23 18:00 Urine Urobilinogen 0.2 (NORMAL) E.U./dL (NORMAL) 04/12/23 18:00 Ur Leukocyte Esterase NEGATIVE (NEGATIVE) 04/12/23 18:00 Urine RBC 0-5 /HPF (0-5) 04/12/23 18:00 Urine WBC 0-3 /HPF (0-3) 04/12/23 18:00 Ur Squamous Epith Cells RARE Squamous (<= Few) 04/12/23 18:00 Urine Bacteria Rare /HPF (None Seen) 04/12/23 18:00 Urine Mucus Few Strands 04/12/23 18:00 Urine Culture Comments NOT INDICATED 04/12/23 18:00 Fluid Source PLEURAL 04/10/23 18:30 Fluid Color YELLOW 04/10/23 18:30 Fluid Clarity CLEAR 04/10/23 18:30 Fluid WBC 352 /mm^3 04/10/23 18:30 Fluid RBC < 3000 /mm^3 04/10/23 18:30 Fluid Neutrophils % 21.0 % 04/10/23 18:30 Fluid Lymphocytes % 66.0 % 04/10/23 18:30 Fluid Monocytes % 3.0 % 04/10/23 18:30 Fluid Macrophages % 2.0 % 04/10/23 18:30 Fld Mesothelial Cell % 8.0 % 04/10/23 18:30 Nasal Adenovirus (PCR) NOT DETECTED 04/10/23 20:30 Nasal B. parapertussis DNA (PCR) NOT DETECTED 04/10/23 20:30 Nasal Coronavir 229E PCR NOT DETECTED 04/10/23 20:30 Nasal Coronavir HKU1 PCR NOT DETECTED 04/10/23 20:30 Nasal Coronavir NL63 PCR NOT DETECTED 04/10/23 20:30 Nasal Coronavir OC43 PCR NOT DETECTED 04/10/23 20:30 Nasal Enterovir/Rhinovir PCR NOT DETECTED 04/10/23 20:30 Nasal Influenza B PCR NOT DETECTED 04/10/23 20:30 Nasal Influenza A PCR NOT DETECTED 04/10/23 20:30 Nasal Parainfluen 1 PCR NOT DETECTED 04/10/23 20:30 Nasal Parainfluen 2 PCR NOT DETECTED 04/10/23 20:30 Nasal Parainfluen 3 PCR NOT DETECTED 04/10/23 20:30 Nasal Parainfluen 4 PCR NOT DETECTED 04/10/23 20:30 Nasal RSV (PCR) NOT DETECTED 04/10/23 20:30 Nasal B.pertussis DNA PCR NOT DETECTED 04/10/23 20:30 Nasal C.pneumoniae (PCR) NOT DETECTED 04/10/23 20:30 Estiven Human Metapneumo PCR NOT DETECTED 04/10/23 20:30 Nasal M.pneumoniae (PCR) NOT DETECTED 04/10/23 20:30 Nasal SARS-CoV-2 (PCR) NOT DETECTED 04/10/23 20:30 ABX Reporting Has patient been on IV antibiotics over the past 48 hours?: No Current Medications - Current Medications Current Medications: Active Medications Acetaminophen (Acetaminophen 325 Mg Tablet) 650 mg PO Q4HR PRN PRN Reason: Pain or Fever > 38C (100.4F) Last Admin: 04/13/23 20:32 Dose: 650 mg Hydrocodone Bitart/Acetaminophen (Hydrocod/Acetam 5/325 Mg Tablet) 1 tab PO Q4HR PRN PRN Reason: Moderate Pain (Level 4-6) Last Admin: 04/18/23 05:41 Dose: 1 tab Albuterol/Ipratropium (Ipratropium/Albuterol 3 Ml Neb) 3 ml INH Q4HR PRN PRN Reason: Wheezing Last Admin: 04/10/23 22:55 Dose: 3 ml Aspirin (Aspirin 325 Mg Tablet) 975 mg PO TID PRN PRN Reason: PAIN 1-4 Calcium Carbonate/Glycine (Calcium Carbonate Chew 500 Mg Tablet) 500 mg PO TID PRN PRN Reason: INDIGESTION Last Admin: 04/15/23 16:52 Dose: 500 mg Clonazepam (Clonazepam 0.5 Mg Tablet) 4 mg PO Q8H CHARANJIT Last Admin: 04/18/23 06:41 Dose: 4 mg Dexamethasone (Dexamethasone 4 Mg Tablet) 4 mg PO BIDWM CHARANJIT Last Admin: 04/18/23 08:43 Dose: 4 mg Enoxaparin Sodium (Enoxaparin 40 Mg/0.4 Ml Syringe) 40 mg SUBQ DAILY CHARANJIT Last Admin: 04/18/23 08:42 Dose: 40 mg Lactobacillus Rhamnosus (Lactobacillus Rhamnosus Gg Capsule) 1 cap PO DAILY REPLACED BY [facility] Last Admin: 04/18/23 08:43 Dose: 1 cap Lidocaine (Lidocaine Ointment 5% 35.44 Gm Tube) 1 applic TOP BID PRN PRN Reason: MINOR PAIN Last Admin: 04/16/23 19:40 Dose: 1 applic Morphine Sulfate (Morphine Er 15 Mg Tablet) 15 mg PO Q8H REPLACED BY [facility] Last Admin: 04/18/23 08:42 Dose: 15 mg Morphine Sulfate (Morphine Er 60 Mg Tablet) 180 mg PO Q8H REPLACED BY [facility] Last Admin: 04/18/23 08:42 Dose: 180 mg Multi-Ingredient Ointment (Zinc Oxide 20% Oint 30 Gm Tube) 1 applic TOP PRN PRN PRN Reason: Skin Care Multivitamins/Minerals (Multivitamin W/Minerals Tablet) 1 tab PO DAILYWM REPLACED BY [facility] Last Admin: 04/18/23 08:42 Dose: 1 tab Pantoprazole Sodium (Pantoprazole 40 Mg Tablet) 40 mg PO QDAC REPLACED BY [facility] Last Admin: 04/18/23 05:41 Dose: 40 mg Senna (Senna 8.6 Mg Tablet) 8.6 mg PO BID PRN PRN Reason: Constipation Sodium Chloride (Sodium Chloride Flush 0.9% 10 Ml Syringe) 10 ml IVP PRN PRN PRN Reason: NEEDED PER PROVIDER ORDERS Sodium Chloride (Sodium Chloride Flush 0.9% 10 Ml Syringe) 10 ml IVP 0100,0900,1700 REPLACED BY [facility] Last Admin: 04/18/23 08:46 Dose: 10 ml Acetaminophen [Tylenol] 2 tab PO TID PRN 04/11/23 Aspirin [Ann] 3 tab PO TID PRN 04/11/23 Calcium Carbonate/Vitamin D3 [Calcium 500 mg Chewable Tablet] 2 tab PO DAILY 04/11/23 LORazepam [Lorazepam] 2 tab PO Q8H 04/11/23 Morphine Sulfate [Morphine Sulfate ER] 2 tab PO Q8H 04/11/23 Multivit-Minerals/Folic Acid [Multivitamin Gummies] 2 tab PO DAILY 04/11/23 clonazePAM [Klonopin] 2 tab PO Q8H 04/11/23
[2023-04-18] MEDS: ACETAMINOPHEN 325 MG TABLET PO PRN (13:48)
[2023-04-18] MEDS: ASPIRIN 325 MG TABLET PO PRN (13:48)
[2023-04-19] MEDS: MORPHINE ER 60 MG TABLET PO SCH ×3 (00:10→16:36)
[2023-04-19] MEDS: MORPHINE ER 15 MG TABLET PO SCH ×3 (00:10→16:37)
[2023-04-19] MEDS: SODIUM CHLORIDE FLUSH 0.9% 10 ML SYRINGE IVP SCH ×3 (00:11→16:38)
[2023-04-19 06:01] LABS: BASOPHILS % (AUTO) 0.1 %; HCT - HEMATOCRIT 29.2 % (42.0-52.0); HGB - HEMOGLOBIN 9.1 g/dL (14.0-18.0); LYMPHOCYTES # (AUTO) 0.8 10^3/uL (1.5-3.5); LYMPHOCYTES % (AUTO) 7.3 %; MEAN CORPUSCULAR HEMOGLOBIN 25.7 pg (27.0-31.0); MEAN CORPUSCULAR HGB CONC 31.2 g/dL (32.0-36.0); MEAN CORPUSCULAR VOLUME 82.5 fL (80.0-94.0); MEAN PLATELET VOLUME 8.7 fL (7.4-11.4); MONOCYTES # (AUTO) 0.7 10^3/uL (0.0-1.0); MONOCYTES % (AUTO) 6.2 %; NEUTROPHILS # (AUTO) 9.6 10^3/uL (1.5-6.6); PLT - PLATELET COUNT 444 10^3/uL (130-450); RED BLOOD COUNT 3.54 10^6/uL (4.70-6.10); RED CELL DISTRIBUTION WIDTH 18.3 % (12.0-15.0); WHITE BLOOD COUNT 11.2 x10^3/uL (4.8-10.8)
[2023-04-19 06:21] LABS: ALBUMIN 2.7 g/dL (3.2-5.5); ALBUMIN/GLOBULIN RATIO 0.9 (1.0-2.2); BILIRUBIN,TOTAL 0.3 mg/dL (0.2-1.0); CALCIUM 8.5 mg/dL (8.5-10.3); CREATININE 0.4 mg/dL (0.6-1.3); POTASSIUM 4.2 mmol/L (3.5-4.5); TOTAL PROTEIN 5.8 g/dL (6.4-8.9)
[2023-04-19] MEDS: clonazePAM 0.5 MG TABLET PO SCH ×2 (06:32→16:37)
[2023-04-19] MEDS: PANTOPRAZOLE 40 MG TABLET PO SCH (06:32)
[2023-04-19] MEDS: dexAMETHasone 4 MG TABLET PO SCH ×2 (09:33→16:38)
[2023-04-19] MEDS: MULTIVITAMIN W/MINERALS TABLET PO SCH (09:33)
[2023-04-19] MEDS: ENOXAPARIN 40 MG/0.4 ML SYRINGE SUBQ SCH (09:33)
[2023-04-19] MEDS: LACTOBACILLUS RHAMNOSUS GG CAPSULE PO SCH (09:34)
--- NOTE | 2023-04-19 10:20 | PROVIDER PROGRESS NOTE ---
Assessment/Plan - Problem List (1) Shortness of breath Assessment/Plan: pt has no respiratory distress now (2) Metastatic lung cancer possible Assessment/Plan: Patient had CT of the chest done 3 weeks ago which showed a mass within right lower lobe, concerning for malignancy (and a tumor poss infiltrated his right atrium). Pt still has had no biopsy. Pt had large right pleural , and pleural fluid was sent for cytology analysis several days ago which showed negative Malignancy. Both the patient and his are notified this cytology result. MRI w/O of Brain show Multiple enhancing masses bilaterally suspicious for metastatic disease. Both patient and his clearly hope no fine-needle biopsy for patient at this time. Pt had symptomatic improvement after patient was started on oral dexamethasone, and after that his requested to explore patient's capacity for gping to rehab for strengthening before coming home. PT/OT evaluations did agree that pat ient could benefit from rehab at a SNF. Hospice was consulted and marketing project coordinator agreed that going to SNF first before being accepted by Hospice should be done. Plan: Continue with Decadron (3) Right atrial mass Assessment/Plan: ECHO study show No right atrium mass (4) Transaminitis close to normal arrange. (5) Right large pleural effusion Patient had a thoracentesis done by the ER when he was found to have large lower right pleural effusion, His fluid culture and gram stain were unlikely to be infected. Cytology of pleural effusion showed negative Malignancy. Since pt has significant improved of his respiratory status, pt had 95% Oxygen saturation on room air. Patient had no respiratory distress. Hold CXR. (6) Physical deconditioning Patient presents significantly physical deconditioned Plan: Awaiting for acceptance at a SNF. He is medically cleared for discharge. (7) Anorexia pt has poor appetite and has malnutrition. There has been improvement since Decadron was started. Plan: Continue Decadron We will request Hosiery Knitter to give small frequent meals which is what he is requesting (8) Hx of copd There is no exacerbation, his pulmonary exam is stable Plan: Continue o2 supplement if needed and continue nebs (9) Chronic fatigue syndrome/ myalgia We confirmed with pt's , pt did chronically take significant amount anti- anxiety meds and pain meds at home for his myalgia. Plan: Cont home anti-anxiety meds and the pain medications (10) Lethargy improved Plan: Continue Decadron Continue his usual home doses of morphine and Ativan so he does not withdraw - Current Meds Current Meds: Current Medications Generic Name Dose Route Start Last Admin Trade Name Caitie PRN Reason Stop Dose Admin Acetaminophen 650 mg 04/11/23 10:28 04/18/23 13:48 Acetaminophen 325 Mg Tablet PO 650 mg Q4HR PRN Administration Pain or Fever > 38C (100.4F) Hydrocodone Bitart/Acetaminophen 1 tab 04/11/23 10:28 04/18/23 22:24 Hydrocod/Acetam 5/325 Mg Tablet PO 1 tab Q4HR PRN Administration Moderate Pain (Level 4-6) Albuterol/Ipratropium 3 ml 04/10/23 21:17 04/10/23 22:55 Ipratropium/Albuterol 3 Ml Neb INH 3 ml Q4HR PRN Administration Wheezing Aspirin 975 mg 04/11/23 14:31 04/18/23 13:48 Aspirin 325 Mg Tablet PO 975 mg TID PRN Administration PAIN 1-4 Calcium Carbonate/Glycine 500 mg 04/14/23 12:53 04/15/23 16:52 Calcium Carbonate Chew 500 Mg Tablet PO 500 mg TID PRN Administration INDIGESTION Clonazepam 4 mg 04/11/23 15:00 04/19/23 06:32 Clonazepam 0.5 Mg Tablet PO 4 mg Q8H CHARANJIT Administration Dexamethasone 4 mg 04/12/23 17:00 04/19/23 09:33 Dexamethasone 4 Mg Tablet PO 4 mg BIDWM CHARANJIT Administration Enoxaparin Sodium 40 mg 04/12/23 09:00 04/19/23 09:33 Enoxaparin 40 Mg/0.4 Ml Syringe SUBQ 40 mg DAILY CHARANJIT Administration Lactobacillus Rhamnosus 1 cap 04/16/23 17:46 04/19/23 09:34 Lactobacillus Rhamnosus Gg Capsule PO 1 cap DAILY CHARANJIT Administration Lidocaine 1 applic 04/16/23 17:57 04/16/23 19:40 Lidocaine Ointment 5% 35.44 Gm Tube TOP 1 applic BID PRN Administration MINOR PAIN Morphine Sulfate 15 mg 04/11/23 16:00 04/19/23 09:33 Morphine Er 15 Mg Tablet PO 15 mg Q8H CHARANJIT Administration Morphine Sulfate 180 mg 04/15/23 16:00 04/19/23 09:33 Morphine Er 60 Mg Tablet PO 180 mg Q8H CHARANJIT Administration Multivitamins/Minerals 1 tab 04/12/23 12:00 04/19/23 09:33 Multivitamin W/Minerals Tablet PO 1 tab DAILYWM CHARANJIT Administration Pantoprazole Sodium 40 mg 04/17/23 08:00 04/19/23 06:32 Pantoprazole 40 Mg Tablet PO 40 mg QDAC CHARANJIT Administration Sodium Chloride 10 ml 04/11/23 01:00 04/19/23 09:34 Sodium Chloride Flush 0.9% 10 Ml Syringe IVP 10 ml 0100,0900,1700 CHARANJIT Administration - Lab Result Fish Bone Diagrams: 04/19/23 05:14 04/19/23 05:14 - Additional Planning My Orders: My Active Orders 04/20/23 05:00 CBC - COMP BLD CT W/AUTO DIFF [HEME] DAILYLAB CMP [COMPREHENSIVE METABOLIC PANEL] [CHEM] DAILYLAB 04/21/23 05:00 CBC - COMP BLD CT W/AUTO DIFF [HEME] DAILYLAB CMP [COMPREHENSIVE METABOLIC PANEL] [CHEM] DAILYLAB 04/22/23 05:00 CBC - COMP BLD CT W/AUTO DIFF [HEME] DAILYLAB CMP [COMPREHENSIVE METABOLIC PANEL] [CHEM] DAILYLAB Subjective - Subjective Patient Reports: Feeling Better Objective Vital Signs: Vital Signs - 24 hr 04/18/23 04/19/23 04/19/23 15:48 00:00 07:12 Temperature 36.8 C 36.8 C 36.8 C Heart Rate [ 104 H 85 82 Brachial] Respiratory 16 18 18 Rate Blood Pressure 111/63 118/68 115/81 H [Right Brachial artery] O2 Saturation 95 95 95 Oxygen O2 Source Room air Oxygen Flow Rate 4 I&O (Last 24 Hrs): Intake and Output Totals x24h 04/17/23 04/18/23 04/19/23 23:59 23:59 23:59 Intake Total 3015.75 1210 240 Output Total 650 1100 300 Balance 2365.75 110 -60 General: Alert, No acute distress HEENT: Atraumatic Neck: Supple Neuro: Alert, Non Focal, Oriented Times 3 Cardiovascular: Regular rate, Normal S1, Normal S2 Respiratory: Chest non-tender, No respiratory distress Abdomen: Normal bowel sounds, Soft - Results Results: Laboratory Results WBC 11.2 x10^3/uL (4.8-10.8) H 04/19/23 05:14 RBC 3.54 10^6/uL (4.70-6.10) L 04/19/23 05:14 Hgb 9.1 g/dL (14.0-18.0) L 04/19/23 05:14 Hct 29.2 % (42.0-52.0) L 04/19/23 05:14 MCV 82.5 fL (80.0-94.0) 04/19/23 05:14 MCH 25.7 pg (27.0-31.0) L 04/19/23 05:14 MCHC 31.2 g/dL (32.0-36.0) L 04/19/23 05:14 RDW 18.3 % (12.0-15.0) H 04/19/23 05:14 Plt Count 444 10^3/uL (130-450) 04/19/23 05:14 MPV 8.7 fL (7.4-11.4) 04/19/23 05:14 Neut # (Auto) 9.6 10^3/uL (1.5-6.6) H 04/19/23 05:14 Lymph # (Auto) 0.8 10^3/uL (1.5-3.5) L 04/19/23 05:14 [place] # (Auto) 0.7 10^3/uL (0.0-1.0) 04/19/23 05:14 Eos # (Auto) 0.0 10^3/uL (0.0-0.7) 04/19/23 05:14 Baso # (Auto) 0.0 10^3/uL (0.0-0.1) 04/19/23 05:14 Absolute Nucleated RBC 0.00 x10^3/uL 04/19/23 05:14 Nucleated RBC % 0.0 /100WBC 04/19/23 05:14 Sodium 134 mmol/L (135-145) L 04/19/23 05:14 Potassium 4.2 mmol/L (3.5-4.5) 04/19/23 05:14 Chloride 95 mmol/L (101-111) L 04/19/23 05:14 Carbon Dioxide 33 mmol/L (21-32) H 04/19/23 05:14 Anion Gap 6.0 (6-13) 04/19/23 05:14 BUN 16 mg/dL (6-20) 04/19/23 05:14 Creatinine 0.4 mg/dL (0.6-1.3) L 04/19/23 05:14 Estimated GFR (MDRD) 218 (>89) 04/19/23 05:14 Glucose 111 mg/dL (74-104) H 04/19/23 05:14 Lactic Acid 1.5 mmol/L (0.5-2.2) 04/10/23 16:35 Calcium 8.5 mg/dL (8.5-10.3) 04/19/23 05:14 Total Bilirubin 0.3 mg/dL (0.2-1.0) 04/19/23 05:14 AST 28 IU/L (10-42) 04/19/23 05:14 ALT 91 IU/L (10-60) H 04/19/23 05:14 Alkaline Phosphatase 102 IU/L (42-121) 04/19/23 05:14 Total Protein 5.8 g/dL (6.4-8.9) L 04/19/23 05:14 Albumin 2.7 g/dL (3.2-5.5) L 04/19/23 05:14 Globulin 3.1 g/dL (2.1-4.2) 04/19/23 05:14 Albumin/Globulin Ratio 0.9 (1.0-2.2) L 04/19/23 05:14 Lipase 19 U/L (22-51) L 04/10/23 16:35 Urine Color YELLOW 04/12/23 18:00 Urine Clarity CLEAR (CLEAR) 04/12/23 18:00 Urine pH 5.0 PH (5.0-7.5) 04/12/23 18:00 Ur Specific [place] 1.025 (1.002-1.030) 04/12/23 18:00 Urine Protein NEGATIVE mg/dL (NEGATIVE) 04/12/23 18:00 Urine Glucose (UA) NEGATIVE mg/dL (NEGATIVE) 04/12/23 18:00 Urine Ketones NEGATIVE mg/dL (NEGATIVE) 04/12/23 18:00 Urine Occult Blood NEGATIVE (NEGATIVE) 04/12/23 18:00 Urine Nitrite NEGATIVE (NEGATIVE) 04/12/23 18:00 Urine Bilirubin NEGATIVE (NEGATIVE) 04/12/23 18:00 Urine Urobilinogen 0.2 (NORMAL) E.U./dL (NORMAL) 04/12/23 18:00 Ur Leukocyte Esterase NEGATIVE (NEGATIVE) 04/12/23 18:00 Urine RBC 0-5 /HPF (0-5) 04/12/23 18:00 Urine WBC 0-3 /HPF (0-3) 04/12/23 18:00 Ur Squamous Epith Cells RARE Squamous (<= Few) 04/12/23 18:00 Urine Bacteria Rare /HPF (None Seen) 04/12/23 18:00 Urine Mucus Few Strands 04/12/23 18:00 Urine Culture Comments NOT INDICATED 04/12/23 18:00 Fluid Source PLEURAL 04/10/23 18:30 Fluid Color YELLOW 04/10/23 18:30 Fluid Clarity CLEAR 04/10/23 18:30 Fluid WBC 352 /mm^3 04/10/23 18:30 Fluid RBC < 3000 /mm^3 04/10/23 18:30 Fluid Neutrophils % 21.0 % 04/10/23 18:30 Fluid Lymphocytes % 66.0 % 04/10/23 18:30 Fluid Monocytes % 3.0 % 04/10/23 18:30 Fluid Macrophages % 2.0 % 04/10/23 18:30 Fld Mesothelial Cell % 8.0 % 04/10/23 18:30 Nasal Adenovirus (PCR) NOT DETECTED 04/10/23 20:30 Nasal B. parapertussis DNA (PCR) NOT DETECTED 04/10/23 20:30 Nasal Coronavir 229E PCR NOT DETECTED 04/10/23 20:30 Nasal Coronavir HKU1 PCR NOT DETECTED 04/10/23 20:30 Nasal Coronavir NL63 PCR NOT DETECTED 04/10/23 20:30 Nasal Coronavir OC43 PCR NOT DETECTED 04/10/23 20:30 Nasal Enterovir/Rhinovir PCR NOT DETECTED 04/10/23 20:30 Nasal Influenza B PCR NOT DETECTED 04/10/23 20:30 Nasal Influenza A PCR NOT DETECTED 04/10/23 20:30 Nasal Parainfluen 1 PCR NOT DETECTED 04/10/23 20:30 Nasal Parainfluen 2 PCR NOT DETECTED 04/10/23 20:30 Nasal Parainfluen 3 PCR NOT DETECTED 04/10/23 20:30 Nasal Parainfluen 4 PCR NOT DETECTED 04/10/23 20:30 Nasal RSV (PCR) NOT DETECTED 04/10/23 20:30 Nasal B.pertussis DNA PCR NOT DETECTED 04/10/23 20:30 Nasal C.pneumoniae (PCR) NOT DETECTED 04/10/23 20:30 Estiven Human Metapneumo PCR NOT DETECTED 04/10/23 20:30 Nasal M.pneumoniae (PCR) NOT DETECTED 04/10/23 20:30 Nasal SARS-CoV-2 (PCR) NOT DETECTED 04/10/23 20:30 ABX Reporting Has patient been on IV antibiotics over the past 48 hours?: No Current Medications - Current Medications Current Medications: Active Medications Acetaminophen (Acetaminophen 325 Mg Tablet) 650 mg PO Q4HR PRN PRN Reason: Pain or Fever > 38C (100.4F) Last Admin: 04/18/23 13:48 Dose: 650 mg Hydrocodone Bitart/Acetaminophen (Hydrocod/Acetam 5/325 Mg Tablet) 1 tab PO Q4HR PRN PRN Reason: Moderate Pain (Level 4-6) Last Admin: 04/18/23 22:24 Dose: 1 tab Albuterol/Ipratropium (Ipratropium/Albuterol 3 Ml Neb) 3 ml INH Q4HR PRN PRN Reason: Wheezing Last Admin: 04/10/23 22:55 Dose: 3 ml Aspirin (Aspirin 325 Mg Tablet) 975 mg PO TID PRN PRN Reason: PAIN 1-4 Last Admin: 04/18/23 13:48 Dose: 975 mg Calcium Carbonate/Glycine (Calcium Carbonate Chew 500 Mg Tablet) 500 mg PO TID PRN PRN Reason: INDIGESTION Last Admin: 04/15/23 16:52 Dose: 500 mg Clonazepam (Clonazepam 0.5 Mg Tablet) 4 mg PO Q8H CHARANJIT Last Admin: 04/19/23 06:32 Dose: 4 mg Dexamethasone (Dexamethasone 4 Mg Tablet) 4 mg PO BIDWM CHARANJIT Last Admin: 04/19/23 09:33 Dose: 4 mg Enoxaparin Sodium (Enoxaparin 40 Mg/0.4 Ml Syringe) 40 mg SUBQ DAILY CHARANJIT Last Admin: 04/19/23 09:33 Dose: 40 mg Lactobacillus Rhamnosus (Lactobacillus Rhamnosus Gg Capsule) 1 cap PO DAILY CHARANJIT Last Admin: 04/19/23 09:34 Dose: 1 cap Lidocaine (Lidocaine Ointment 5% 35.44 Gm Tube) 1 applic TOP BID PRN PRN Reason: MINOR PAIN Last Admin: 04/16/23 19:40 Dose: 1 applic Morphine Sulfate (Morphine Er 15 Mg Tablet) 15 mg PO Q8H [facility] Last Admin: 04/19/23 09:33 Dose: 15 mg Morphine Sulfate (Morphine Er 60 Mg Tablet) 180 mg PO Q8H [facility] Last Admin: 04/19/23 09:33 Dose: 180 mg Multi-Ingredient Ointment (Zinc Oxide 20% Oint 30 Gm Tube) 1 applic TOP PRN PRN PRN Reason: Skin Care Multivitamins/Minerals (Multivitamin W/Minerals Tablet) 1 tab PO DAILYWM [facility] Last Admin: 04/19/23 09:33 Dose: 1 tab Pantoprazole Sodium (Pantoprazole 40 Mg Tablet) 40 mg PO QDAC [facility] Last Admin: 04/19/23 06:32 Dose: 40 mg Senna (Senna 8.6 Mg Tablet) 8.6 mg PO BID PRN PRN Reason: Constipation Sodium Chloride (Sodium Chloride Flush 0.9% 10 Ml Syringe) 10 ml IVP PRN PRN PRN Reason: NEEDED PER PROVIDER ORDERS Sodium Chloride (Sodium Chloride Flush 0.9% 10 Ml Syringe) 10 ml IVP 0100,0900,1700 [facility] Last Admin: 04/19/23 09:34 Dose: 10 ml Acetaminophen [Tylenol] 2 tab PO TID PRN 04/11/23 Aspirin [Ann] 3 tab PO TID PRN 04/11/23 Calcium Carbonate/Vitamin D3 [Calcium 500 mg Chewable Tablet] 2 tab PO DAILY 04/11/23 LORazepam [Lorazepam] 2 tab PO Q8H 04/11/23 Morphine Sulfate [Morphine Sulfate ER] 2 tab PO Q8H 04/11/23 Multivit-Minerals/Folic Acid [Multivitamin Gummies] 2 tab PO DAILY 04/11/23 clonazePAM [Klonopin] 2 tab PO Q8H 04/11/23
[2023-04-19] MEDS: HYDROcod/ACETAM 5/325 MG TABLET PO PRN (13:25)
[2023-04-19] MEDS: ASPIRIN 325 MG TABLET PO PRN (16:53)
[2023-04-19] MEDS: ACETAMINOPHEN 325 MG TABLET PO PRN (16:53)
[2023-04-19] MEDS: LORazepam 1 MG TABLET PO SCH (17:34)
[2023-04-20] MEDS: clonazePAM 0.5 MG TABLET PO SCH ×4 (01:09→22:09)
[2023-04-20] MEDS: LORazepam 1 MG TABLET PO SCH ×3 (01:10→17:28)
[2023-04-20] MEDS: MORPHINE ER 15 MG TABLET PO SCH ×3 (01:10→16:28)
[2023-04-20] MEDS: MORPHINE ER 60 MG TABLET PO SCH ×3 (01:11→16:27)
[2023-04-20] MEDS: SODIUM CHLORIDE FLUSH 0.9% 10 ML SYRINGE IVP SCH ×3 (01:11→16:28)
[2023-04-20] MEDS: ASPIRIN 325 MG TABLET PO PRN (01:24)
[2023-04-20] MEDS: ACETAMINOPHEN 500 MG TABLET PO PRN (01:25)
[2023-04-20 05:34] LABS: HCT - HEMATOCRIT 31.3 % (42.0-52.0); HGB - HEMOGLOBIN 9.5 g/dL (14.0-18.0); LYMPHOCYTES # (AUTO) 0.9 10^3/uL (1.5-3.5); MEAN CORPUSCULAR HGB CONC 30.4 g/dL (32.0-36.0); MEAN CORPUSCULAR VOLUME 82.4 fL (80.0-94.0); MEAN PLATELET VOLUME 8.4 fL (7.4-11.4); MONOCYTES # (AUTO) 0.7 10^3/uL (0.0-1.0); NEUTROPHILS # (AUTO) 9.6 10^3/uL (1.5-6.6); NEUTROPHILS % (AUTO) 85.6 %; PLT - PLATELET COUNT 495 10^3/uL (130-450); RED CELL DISTRIBUTION WIDTH 18.4 % (12.0-15.0); WHITE BLOOD COUNT 11.2 x10^3/uL (4.8-10.8)
[2023-04-20 05:48] LABS: ALBUMIN 2.7 g/dL (3.2-5.5); ALBUMIN/GLOBULIN RATIO 0.9 (1.0-2.2); BILIRUBIN,TOTAL 0.2 mg/dL (0.2-1.0); CALCIUM 8.5 mg/dL (8.5-10.3); CREATININE 0.5 mg/dL (0.6-1.3); POTASSIUM 4.3 mmol/L (3.5-4.5); TOTAL PROTEIN 5.8 g/dL (6.4-8.9)
[2023-04-20] MEDS: PANTOPRAZOLE 40 MG TABLET PO SCH (06:44)
[2023-04-20] MEDS: MULTIVITAMIN W/MINERALS TABLET PO SCH (07:50)
[2023-04-20] MEDS: dexAMETHasone 4 MG TABLET PO SCH ×2 (07:51→16:28)
[2023-04-20] MEDS: LACTOBACILLUS RHAMNOSUS GG CAPSULE PO SCH (07:51)
[2023-04-20] MEDS: ENOXAPARIN 40 MG/0.4 ML SYRINGE SUBQ SCH (07:52)
[2023-04-20] MEDS: CALCIUM CARBONATE CHEW 500 MG TABLET PO PRN ×2 (07:52→08:02)
[2023-04-20] MEDS: CALCIUM CARB (OYSTER SHELL) 500 MG TABLET PO SCH (08:00)
[2023-04-20] MEDS: CHOLECALCIFEROL 25 MCG TABLET PO SCH (08:00)
[2023-04-20] MEDS ORDERED: MULTIVITAMIN W/MINERALS TABLET PO SCH (09:00)
--- NOTE | 2023-04-20 10:09 | PROVIDER PROGRESS NOTE ---
Assessment/Plan - Problem List (1) Shortness of breath Assessment/Plan: pt has no respiratory distress now, resolved. pt had 98% oxygen saturation on room air (2) Metastatic lung cancer possible Assessment/Plan: Patient had CT of the chest done 3 weeks ago which showed a mass within right lower lobe, concerning for malignancy (and a tumor poss infiltrated his right atrium). Pt still has had no biopsy. Pt had large right pleural , and pleural fluid was sent for cytology analysis several days ago which showed negative Malignancy. Both the patient and his are notified this cytology result. MRI w/O of Brain show Multiple enhancing masses bilaterally suspicious for metastatic disease. Both patient and his clearly hope no fine-needle biopsy for patient at this time. Pt had symptomatic improvement after patient was started on oral dexamethasone, and after that his requested to explore patient's capacity for going to re hab for strengthening before coming home. PT/OT evaluations did agree that patient could benefit from rehab at a SNF. Hospice was consulted and account liaison hospice agreed that going to SNF first before being accepted by Hospice should be done. Plan: Continue with Decadron (3) Right atrial mass Assessment/Plan: ECHO study show No right atrium mass (4) Transaminitis close to normal arrange. (5) Right large pleural effusion Patient had a thoracentesis done by the ER when he was found to have large lower right pleural effusion, His fluid culture and gram stain were unlikely to be infected. Cytology of pleural effusion showed negative Malignancy. Since pt has significant improved of his respiratory status, pt had 98% Oxygen saturation on room air. Patient had no respiratory distress. Hold CXR at this time. (6) Physical deconditioning Patient presents significantly physical deconditioned, but is gradually improved. Plan: Awaiting for acceptance at a SNF. He is medically cleared for discharge. (7) Anorexia pt has poor appetite and has malnutrition. There has been improvement since Decadron was started. Plan: Continue Decadron We will request Administrative Manager to give small frequent meals which is what he is requesting (8) Hx of copd There is no exacerbation, his pulmonary exam is stable Plan: Continue o2 supplement if needed and continue nebs (9) Chronic fatigue syndrome/ myalgia We confirmed with pt's , pt did chronically take significant amount anti- anxiety meds and pain meds at home for his myalgia. Plan: Cont home anti-anxiety meds and the pain medications (10) Lethargy improved Plan: Continue Decadron Continue his usual home doses so he does not withdraw - Current Meds Current Meds: Current Medications Generic Name Dose Route Start Last Admin Trade Name Frelarissa PRN Reason Stop Dose Admin Acetaminophen 1,000 mg 04/19/23 17:09 04/20/23 01:25 Acetaminophen 500 Mg Tablet PO 1,000 mg TID PRN Administration PAIN 1-4 Hydrocodone Bitart/Acetaminophen 1 tab 04/11/23 10:28 04/19/23 13:25 Hydrocod/Acetam 5/325 Mg Tablet PO 1 tab Q4HR PRN Administration Moderate Pain (Level 4-6) Albuterol/Ipratropium 3 ml 04/10/23 21:17 04/10/23 22:55 Ipratropium/Albuterol 3 Ml Neb INH 3 ml Q4HR PRN Administration Wheezing Aspirin 975 mg 04/11/23 14:31 04/20/23 01:24 Aspirin 325 Mg Tablet PO 975 mg TID PRN Administration PAIN 1-4 Calcium Carbonate/Glycine 500 mg 04/14/23 12:53 04/20/23 08:02 Calcium Carbonate Chew 500 Mg Tablet PO 500 mg TID PRN Administration INDIGESTION Calcium Carbonate/Glycine 1,000 mg 04/20/23 09:00 04/20/23 08:00 Calcium Carb (Oyster Shell) 500 Mg Tablet PO 1,000 mg DAILY CHARANJIT Administration Cholecalciferol 25 mcg 04/20/23 09:00 04/20/23 08:00 Cholecalciferol 25 Mcg Tablet PO 25 mcg DAILY CHARANJIT Administration Clonazepam 4 mg 04/11/23 15:00 04/20/23 06:47 Clonazepam 0.5 Mg Tablet PO 1 mg Q8H CHARANJIT Administration Dexamethasone 4 mg 04/12/23 17:00 04/20/23 07:51 Dexamethasone 4 Mg Tablet PO 4 mg BIDWM CHARANJIT Administration Enoxaparin Sodium 40 mg 04/12/23 09:00 04/20/23 07:52 Enoxaparin 40 Mg/0.4 Ml Syringe SUBQ 40 mg DAILY CHARANJIT Administration Lactobacillus Rhamnosus 1 cap 04/16/23 17:46 04/20/23 07:51 Lactobacillus Rhamnosus Gg Capsule PO 1 cap DAILY CHARANJIT Administration Lidocaine 1 applic 04/16/23 17:57 04/16/23 19:40 Lidocaine Ointment 5% 35.44 Gm Tube TOP 1 applic BID PRN Administration MINOR PAIN Lorazepam 4 mg 04/19/23 17:15 04/20/23 01:10 Lorazepam 1 Mg Tablet PO 4 mg Q8H CHARANJIT Administration Morphine Sulfate 15 mg 04/11/23 16:00 04/20/23 07:50 Morphine Er 15 Mg Tablet PO 15 mg Q8H CHARANJIT Administration Morphine Sulfate 180 mg 04/15/23 16:00 04/20/23 07:49 Morphine Er 60 Mg Tablet PO 180 mg Q8H CHARANJIT Administration Multivitamins/Minerals 1 tab 04/12/23 12:00 04/20/23 07:50 Multivitamin W/Minerals Tablet PO 1 tab DAILYWM CHARANJIT Administration Pantoprazole Sodium 40 mg 04/17/23 08:00 04/20/23 06:44 Pantoprazole 40 Mg Tablet PO Not Given QDAC CHARANJIT Sodium Chloride 10 ml 04/11/23 01:00 04/20/23 07:55 Sodium Chloride Flush 0.9% 10 Ml Syringe IVP 10 ml 0100,0900,1700 CHARANJIT Administration - Lab Result Fish Bone Diagrams: 04/20/23 05:10 04/20/23 05:10 - Additional Planning My Orders: My Active Orders 04/19/23 17:09 Acetaminophen [Tylenol] 1,000 mg PO TID PRN 04/19/23 17:15 LORazepam [Ativan] 4 mg PO Q8H 04/20/23 09:00 Calcium Carb (Oyster Shell) [Oysco-500] 1,000 mg PO DAILY Cholecalciferol [Vitamin D3] 25 mcg PO DAILY 04/21/23 05:00 CBC - COMP BLD CT W/AUTO DIFF [HEME] DAILYLAB CMP [COMPREHENSIVE METABOLIC PANEL] [CHEM] DAILYLAB 04/22/23 05:00 CBC - COMP BLD CT W/AUTO DIFF [HEME] DAILYLAB CMP [COMPREHENSIVE METABOLIC PANEL] [CHEM] DAILYLAB Subjective - Subjective Patient Reports: Feeling Better Objective Vital Signs: Vital Signs - 24 hr 04/19/23 04/20/23 04/20/23 16:00 01:29 07:15 Temperature 36.4 C L 36.9 C 36.5 C Heart Rate [ 106 H 100 82 Brachial] Respiratory 16 18 18 Rate Blood Pressure 128/65 132/87 H 111/68 [Right Brachial artery] O2 Saturation 96 96 98 Oxygen O2 Source Room air Oxygen Flow Rate 4 I&O (Last 24 Hrs): Intake and Output Totals x24h 04/18/23 04/19/23 04/20/23 23:59 23:59 23:59 Intake Total 1210 1390 960 Output Total 1100 550 450 Balance 110 840 510 General: Alert, No acute distress HEENT: Atraumatic Neck: Supple Neuro: Alert, Non Focal Cardiovascular: Regular rate, Normal S1, Normal S2 Respiratory: Chest non-tender, No respiratory distress Abdomen: Normal bowel sounds, Soft - Results Results: Laboratory Results WBC 11.2 x10^3/uL (4.8-10.8) H 04/20/23 05:10 RBC 3.80 10^6/uL (4.70-6.10) L 04/20/23 05:10 Hgb 9.5 g/dL (14.0-18.0) L 04/20/23 05:10 Hct 31.3 % (42.0-52.0) L 04/20/23 05:10 MCV 82.4 fL (80.0-94.0) 04/20/23 05:10 MCH 25.0 pg (27.0-31.0) L 04/20/23 05:10 MCHC 30.4 g/dL (32.0-36.0) L 04/20/23 05:10 RDW 18.4 % (12.0-15.0) H 04/20/23 05:10 Plt Count 495 10^3/uL (130-450) H 04/20/23 05:10 MPV 8.4 fL (7.4-11.4) 04/20/23 05:10 Neut # (Auto) 9.6 10^3/uL (1.5-6.6) H 04/20/23 05:10 Lymph # (Auto) 0.9 10^3/uL (1.5-3.5) L 04/20/23 05:10 [place] # (Auto) 0.7 10^3/uL (0.0-1.0) 04/20/23 05:10 Eos # (Auto) 0.0 10^3/uL (0.0-0.7) 04/20/23 05:10 Baso # (Auto) 0.0 10^3/uL (0.0-0.1) 04/20/23 05:10 Absolute Nucleated RBC 0.00 x10^3/uL 04/20/23 05:10 Nucleated RBC % 0.0 /100WBC 04/20/23 05:10 Sodium 136 mmol/L (135-145) 04/20/23 05:10 Potassium 4.3 mmol/L (3.5-4.5) 04/20/23 05:10 Chloride 97 mmol/L (101-111) L 04/20/23 05:10 Carbon Dioxide 34 mmol/L (21-32) H 04/20/23 05:10 Anion Gap 5.0 (6-13) L 04/20/23 05:10 BUN 18 mg/dL (6-20) 04/20/23 05:10 Creatinine 0.5 mg/dL (0.6-1.3) L 04/20/23 05:10 Estimated GFR (MDRD) 168 (>89) 04/20/23 05:10 Glucose 106 mg/dL (74-104) H 04/20/23 05:10 Lactic Acid 1.5 mmol/L (0.5-2.2) 04/10/23 16:35 Calcium 8.5 mg/dL (8.5-10.3) 04/20/23 05:10 Total Bilirubin 0.2 mg/dL (0.2-1.0) 04/20/23 05:10 AST 20 IU/L (10-42) 04/20/23 05:10 ALT 74 IU/L (10-60) H 04/20/23 05:10 Alkaline Phosphatase 94 IU/L (42-121) 04/20/23 05:10 Total Protein 5.8 g/dL (6.4-8.9) L 04/20/23 05:10 Albumin 2.7 g/dL (3.2-5.5) L 04/20/23 05:10 Globulin 3.1 g/dL (2.1-4.2) 04/20/23 05:10 Albumin/Globulin Ratio 0.9 (1.0-2.2) L 04/20/23 05:10 Lipase 19 U/L (22-51) L 04/10/23 16:35 Urine Color YELLOW 04/12/23 18:00 Urine Clarity CLEAR (CLEAR) 04/12/23 18:00 Urine pH 5.0 PH (5.0-7.5) 04/12/23 18:00 Ur Specific [place] 1.025 (1.002-1.030) 04/12/23 18:00 Urine Protein NEGATIVE mg/dL (NEGATIVE) 04/12/23 18:00 Urine Glucose (UA) NEGATIVE mg/dL (NEGATIVE) 04/12/23 18:00 Urine Ketones NEGATIVE mg/dL (NEGATIVE) 04/12/23 18:00 Urine Occult Blood NEGATIVE (NEGATIVE) 04/12/23 18:00 Urine Nitrite NEGATIVE (NEGATIVE) 04/12/23 18:00 Urine Bilirubin NEGATIVE (NEGATIVE) 04/12/23 18:00 Urine Urobilinogen 0.2 (NORMAL) E.U./dL (NORMAL) 04/12/23 18:00 Ur Leukocyte Esterase NEGATIVE (NEGATIVE) 04/12/23 18:00 Urine RBC 0-5 /HPF (0-5) 04/12/23 18:00 Urine WBC 0-3 /HPF (0-3) 04/12/23 18:00 Ur Squamous Epith Cells RARE Squamous (<= Few) 04/12/23 18:00 Urine Bacteria Rare /HPF (None Seen) 04/12/23 18:00 Urine Mucus Few Strands 04/12/23 18:00 Urine Culture Comments NOT INDICATED 04/12/23 18:00 Fluid Source PLEURAL 04/10/23 18:30 Fluid Color YELLOW 04/10/23 18:30 Fluid Clarity CLEAR 04/10/23 18:30 Fluid WBC 352 /mm^3 04/10/23 18:30 Fluid RBC < 3000 /mm^3 04/10/23 18:30 Fluid Neutrophils % 21.0 % 04/10/23 18:30 Fluid Lymphocytes % 66.0 % 04/10/23 18:30 Fluid Monocytes % 3.0 % 04/10/23 18:30 Fluid Macrophages % 2.0 % 04/10/23 18:30 Fld Mesothelial Cell % 8.0 % 04/10/23 18:30 Nasal Adenovirus (PCR) NOT DETECTED 04/10/23 20:30 Nasal B. parapertussis DNA (PCR) NOT DETECTED 04/10/23 20:30 Nasal Coronavir 229E PCR NOT DETECTED 04/10/23 20:30 Nasal Coronavir HKU1 PCR NOT DETECTED 04/10/23 20:30 Nasal Coronavir NL63 PCR NOT DETECTED 04/10/23 20:30 Nasal Coronavir OC43 PCR NOT DETECTED 04/10/23 20:30 Nasal Enterovir/Rhinovir PCR NOT DETECTED 04/10/23 20:30 Nasal Influenza B PCR NOT DETECTED 07 20:30 Nasal Influenza A PCR NOT DETECTED 04/10/23 20:30 Nasal Parainfluen 1 PCR NOT DETECTED 04/10/23 20:30 Nasal Parainfluen 2 PCR NOT DETECTED 04/10/23 20:30 Nasal Parainfluen 3 PCR NOT DETECTED 04/10/23 20:30 Nasal Parainfluen 4 PCR NOT DETECTED 04/10/23 20:30 Nasal RSV (PCR) NOT DETECTED 04/10/23 20:30 Nasal B.pertussis DNA PCR NOT DETECTED 04/10/23 20:30 Nasal C.pneumoniae (PCR) NOT DETECTED 04/10/23 20:30 Estiven Human Metapneumo PCR NOT DETECTED 04/10/23 20:30 Nasal M.pneumoniae (PCR) NOT DETECTED 04/10/23 20:30 Nasal SARS-CoV-2 (PCR) NOT DETECTED 04/10/23 20:30 ABX Reporting Has patient been on IV antibiotics over the past 48 hours?: No Current Medications - Current Medications Current Medications: Active Medications Acetaminophen (Acetaminophen 500 Mg Tablet) 1,000 mg PO TID PRN PRN Reason: PAIN 1-4 Last Admin: 04/20/23 01:25 Dose: 1,000 mg Hydrocodone Bitart/Acetaminophen (Hydrocod/Acetam 5/325 Mg Tablet) 1 tab PO Q4HR PRN PRN Reason: Moderate Pain (Level 4-6) Last Admin: 04/19/23 13:25 Dose: 1 tab Albuterol/Ipratropium (Ipratropium/Albuterol 3 Ml Neb) 3 ml INH Q4HR PRN PRN Reason: Wheezing Last Admin: 04/10/23 22:55 Dose: 3 ml Aspirin (Aspirin 325 Mg Tablet) 975 mg PO TID PRN PRN Reason: PAIN 1-4 Last Admin: 04/20/23 01:24 Dose: 975 mg Calcium Carbonate/Glycine (Calcium Carbonate Chew 500 Mg Tablet) 500 mg PO TID PRN PRN Reason: INDIGESTION Last Admin: 04/20/23 08:02 Dose: 500 mg Calcium Carbonate/Glycine (Calcium Carb (Oyster Shell) 500 Mg Tablet) 1,000 mg PO DAILY [facility] Last Admin: 04/20/23 08:00 Dose: 1,000 mg Cholecalciferol (Cholecalciferol 25 Mcg Tablet) 25 mcg PO DAILY [facility] Last Admin: 04/20/23 08:00 Dose: 25 mcg Clonazepam (Clonazepam 0.5 Mg Tablet) 4 mg PO Q8H [facility] Last Admin: 04/20/23 06:47 Dose: 1 mg Dexamethasone (Dexamethasone 4 Mg Tablet) 4 mg PO BIDWM [facility] Last Admin: 04/20/23 07:51 Dose: 4 mg Enoxaparin Sodium (Enoxaparin 40 Mg/0.4 Ml Syringe) 40 mg SUBQ DAILY [facility] Last Admin: 04/20/23 07:52 Dose: 40 mg Lactobacillus Rhamnosus (Lactobacillus Rhamnosus Gg Capsule) 1 cap PO DAILY [facility] Last Admin: 04/20/23 07:51 Dose: 1 cap Lidocaine (Lidocaine Ointment 5% 35.44 Gm Tube) 1 applic TOP BID PRN PRN Reason: MINOR PAIN Last Admin: 04/16/23 19:40 Dose: 1 applic Lorazepam (Lorazepam 1 Mg Tablet) 4 mg PO Q8H [facility] Last Admin: 04/20/23 01:10 Dose: 4 mg Morphine Sulfate (Morphine Er 15 Mg Tablet) 15 mg PO Q8H [facility] Last Admin: 04/20/23 07:50 Dose: 15 mg Morphine Sulfate (Morphine Er 60 Mg Tablet) 180 mg PO Q8H [facility] Last Admin: 04/20/23 07:49 Dose: 180 mg Multi-Ingredient Ointment (Zinc Oxide 20% Oint 30 Gm Tube) 1 applic TOP PRN PRN PRN Reason: Skin Care Multivitamins/Minerals (Multivitamin W/Minerals Tablet) 1 tab PO DAILYWM [facility] Last Admin: 04/20/23 07:50 Dose: 1 tab Pantoprazole Sodium (Pantoprazole 40 Mg Tablet) 40 mg PO QDAC [facility] Last Admin: 04/20/23 06:44 Dose: Not Given Senna (Senna 8.6 Mg Tablet) 8.6 mg PO BID PRN PRN Reason: Constipation Sodium Chloride (Sodium Chloride Flush 0.9% 10 Ml Syringe) 10 ml IVP PRN PRN PRN Reason: NEEDED PER PROVIDER ORDERS Sodium Chloride (Sodium Chloride Flush 0.9% 10 Ml Syringe) 10 ml IVP 0100,090 0,1700 CHARANJIT Last Admin: 04/20/23 07:55 Dose: 10 ml Acetaminophen [Tylenol] 2 tab PO TID PRN 04/11/23 Aspirin [Ann] 3 tab PO TID PRN 04/11/23 Calcium Carbonate/Vitamin D3 [Calcium 500 mg Chewable Tablet] 2 tab PO DAILY 04/11/23 LORazepam [Lorazepam] 2 tab PO Q8H 04/11/23 Morphine Sulfate [Morphine Sulfate ER] 2 tab PO Q8H 04/11/23 Multivit-Minerals/Folic Acid [Multivitamin Gummies] 2 tab PO DAILY 04/11/23 clonazePAM [Klonopin] 2 tab PO Q8H 04/11/23
[2023-04-20] MEDS: LIDOCAINE OINTMENT 5% 35.44 GM TUBE TOP PRN (14:43)
[2023-04-21] MEDS: MORPHINE ER 15 MG TABLET PO SCH ×3 (00:06→17:16)
[2023-04-21] MEDS: SODIUM CHLORIDE FLUSH 0.9% 10 ML SYRINGE IVP SCH ×3 (00:07→17:17)
[2023-04-21] MEDS: MORPHINE ER 60 MG TABLET PO SCH ×3 (00:07→17:16)
[2023-04-21] MEDS: LORazepam 1 MG TABLET PO SCH ×3 (01:03→17:16)
[2023-04-21] MEDS: CALCIUM CARBONATE CHEW 500 MG TABLET PO PRN (06:22)
[2023-04-21 07:13] LABS: BASOPHILS % (AUTO) 0.1 %; HCT - HEMATOCRIT 30.7 % (42.0-52.0); HGB - HEMOGLOBIN 9.7 g/dL (14.0-18.0); LYMPHOCYTES # (AUTO) 1.7 10^3/uL (1.5-3.5); LYMPHOCYTES % (AUTO) 10.8 %; MEAN CORPUSCULAR HEMOGLOBIN 25.5 pg (27.0-31.0); MEAN CORPUSCULAR HGB CONC 31.6 g/dL (32.0-36.0); MEAN CORPUSCULAR VOLUME 80.6 fL (80.0-94.0); MEAN PLATELET VOLUME 8.4 fL (7.4-11.4); MONOCYTES # (AUTO) 1.3 10^3/uL (0.0-1.0); MONOCYTES % (AUTO) 8.3 %; NEUTROPHILS # (AUTO) 12.5 10^3/uL (1.5-6.6); NEUTROPHILS % (AUTO) 80.2 %; PLT - PLATELET COUNT 566 10^3/uL (130-450); RED BLOOD COUNT 3.81 10^6/uL (4.70-6.10); WHITE BLOOD COUNT 15.6 x10^3/uL (4.8-10.8)
[2023-04-21 07:27] LABS: ALBUMIN 2.8 g/dL (3.2-5.5); ALBUMIN/GLOBULIN RATIO 0.8 (1.0-2.2); BILIRUBIN,TOTAL 0.4 mg/dL (0.2-1.0); CALCIUM 8.8 mg/dL (8.5-10.3); CREATININE 0.4 mg/dL (0.6-1.3); POTASSIUM 4.1 mmol/L (3.5-4.5); TOTAL PROTEIN 6.2 g/dL (6.4-8.9)
[2023-04-21] MEDS: clonazePAM 0.5 MG TABLET PO SCH ×3 (08:19→22:13)
[2023-04-21] MEDS: CHOLECALCIFEROL 25 MCG TABLET PO SCH (08:20)
[2023-04-21] MEDS: CALCIUM CARB (OYSTER SHELL) 500 MG TABLET PO SCH (08:20)
[2023-04-21] MEDS: PANTOPRAZOLE 40 MG TABLET PO SCH (08:20)
[2023-04-21] MEDS: dexAMETHasone 4 MG TABLET PO SCH ×2 (08:20→17:16)
[2023-04-21] MEDS: ENOXAPARIN 40 MG/0.4 ML SYRINGE SUBQ SCH (08:20)
[2023-04-21] MEDS: MULTIVITAMIN W/MINERALS TABLET PO SCH (08:20)
[2023-04-21] MEDS: LACTOBACILLUS RHAMNOSUS GG CAPSULE PO SCH (08:20)
[2023-04-21] MEDS: ACETAMINOPHEN 500 MG TABLET PO PRN ×2 (11:04→19:56)
--- NOTE | 2023-04-21 11:46 | PROVIDER PROGRESS NOTE ---
Assessment/Plan - Problem List (1) Metastatic primary lung cancer Assessment/Plan: Patient had CT of the chest done 3 weeks ago which showed a right lung mass, concerning for malignancy. Pt has had no biopsy. Pt had large right pleural, was tapped at admission and was sent for cytology and it showed negative Malignancy. He presented with confusion and his MRI of Brain show Multiple enhancing masses bilaterally suspicious for metastatic disease. Both patient and his do not want the fine-needle biopsy at this time. Pt had symptomatic improvement after patient was started on oral dexamethasone, and after that his requested to explore patient's capacity for going to rehab for strengthening before coming home. PT/OT evaluations did agree that patient could benefit from rehab at a SNF. Hospice was consulted and operations expert agreed that going to SNF first before being accepted by Hospice should be done. Plan: Continue with Decadron Are awaiting a single case agreement with his [employer] plan to go to a SNF (2) Transaminitis At mid-hospital stay, he had elevated LFTs which were not present at admission. LFTs are close to normal range. Etiology of rise and fall is unclear. (3) Right large pleural effusion Patient had a thoracentesis done by the ER when he was found to have large lower right pleural effusion. Cytology of pleural effusion showed negative Malignancy. (4) Physical deconditioning Patient presented significantly physical deconditioned, but has gradually improved since on Decadron and since started working with PT and OT Plan: Awaiting for acceptance at a SNF. He has been medically cleared for discharge. (5) Anorexia Pt had poor appetite and has malnutrition. There has been improvement since Decadron was started. Plan: Continue Decadron I requested Learning And Development Administrator to give small frequent meals, which is what he requested (6) Hx of copd He is not in a COPD exacerbation (7) Chronic fatigue syndrome/ myalgia Cont home anti-anxiety meds and the pain medications (8) Lethargy IMPROVED Plan: Continue Decadron Continue his usual home pain med doses so he does not withdraw (9) Right atrial mass Assessment/Plan: Echo study showed there is no right atrium mass. It was probably invagination of right atrial wall which had the appearance of a right atrial mass on his chest CT. Plan: I will remove RA mass from his list of diagnoses - Current Meds Current Meds: Current Medications Generic Name Dose Route Start Last Admin Trade Name Freq PRN Reason Stop Dose Admin Acetaminophen 1,000 mg 04/19/23 17:09 04/21/23 11:04 Acetaminophen 500 Mg Tablet PO 1,000 mg TID PRN Administration PAIN 1-4 Hydrocodone Bitart/Acetaminophen 1 tab 04/11/23 10:28 04/19/23 13:25 Hydrocod/Acetam 5/325 Mg Tablet PO 1 tab Q4HR PRN Administration Moderate Pain (Level 4-6) Albuterol/Ipratropium 3 ml 04/10/23 21:17 04/10/23 22:55 Ipratropium/Albuterol 3 Ml Neb INH 3 ml Q4HR PRN Administration Wheezing Aspirin 975 mg 04/11/23 14:31 04/20/23 01:24 Aspirin 325 Mg Tablet PO 975 mg TID PRN Administration PAIN 1-4 Calcium Carbonate/Glycine 500 mg 04/14/23 12:53 04/21/23 06:22 Calcium Carbonate Chew 500 Mg Tablet PO 500 mg TID PRN Administration INDIGESTION Calcium Carbonate/Glycine 1,000 mg 04/20/23 09:00 04/21/23 08:20 Calcium Carb (Oyster Shell) 500 Mg Tablet PO 1,000 mg DAILY CHARANJIT Administration Cholecalciferol 25 mcg 04/20/23 09:00 04/21/23 08:20 Cholecalciferol 25 Mcg Tablet PO 25 mcg DAILY CHARANJIT Administration Clonazepam 4 mg 04/11/23 15:00 04/21/23 08:19 Clonazepam 0.5 Mg Tablet PO 4 mg Q8H CHARANJIT Administration Dexamethasone 4 mg 04/12/23 17:00 04/21/23 08:20 Dexamethasone 4 Mg Tablet PO 4 mg BIDWM CHARANJIT Administration Enoxaparin Sodium 40 mg 04/12/23 09:00 04/21/23 08:20 Enoxaparin 40 Mg/0.4 Ml Syringe SUBQ 40 mg DAILY CHARANJIT Administration Lactobacillus Rhamnosus 1 cap 04/16/23 17:46 04/21/23 08:20 Lactobacillus Rhamnosus Gg Capsule PO 1 cap DAILY CHARANJIT Administration Lidocaine 1 applic 04/16/23 17:57 04/20/23 14:43 Lidocaine Ointment 5% 35.44 Gm Tube TOP 1 applic BID PRN Administration MINOR PAIN Lorazepam 4 mg 04/19/23 17:15 04/21/23 10:14 Lorazepam 1 Mg Tablet PO 4 mg Q8H CHARANJIT Administration Morphine Sulfate 15 mg 04/11/23 16:00 04/21/23 10:14 Morphine Er 15 Mg Tablet PO 15 mg Q8H CHARANJIT Administration Morphine Sulfate 180 mg 04/15/23 16:00 04/21/23 10:13 Morphine Er 60 Mg Tablet PO 180 mg Q8H CHARANJIT Administration Multivitamins/Minerals 1 tab 04/12/23 12:00 04/21/23 08:20 Multivitamin W/Minerals Tablet PO 1 tab DAILYWM CHARANJIT Administration Pantoprazole Sodium 40 mg 04/17/23 08:00 04/21/23 08:20 Pantoprazole 40 Mg Tablet PO 40 mg QDAC CHARANJIT Administration Sodium Chloride 10 ml 04/11/23 01:00 04/21/23 08:20 Sodium Chloride Flush 0.9% 10 Ml Syringe IVP 10 ml 0100,0900,1700 CHARANJIT Administration - Lab Result Fish Bone Diagrams: 04/21/23 06:50 04/21/23 06:50 Subjective - Subjective Patient Reports: Resting Comfortably, No Complaints Objective Vital Signs: Vital Signs - 24 hr 04/20/23 04/20/23 04/21/23 15:27 22:57 07:50 Temperature 36.4 C L 36.9 C 36.7 C Heart Rate [ 97 94 86 Brachial] Respiratory 18 18 18 Rate Blood Pressure 117/58 L 132/81 H 122/70 [Right Brachial artery] O2 Saturation 95 96 94 Oxygen O2 Source Room air Oxygen Flow Rate 4 I&O (Last 24 Hrs): Intake and Output Totals x24h 04/19/23 04/20/23 04/21/23 23:59 23:59 23:59 Intake Total 1390 2520 480 Output Total 550 750 300 Balance 840 1770 180 General: Alert, Oriented x3 HEENT: Mucous membr. moist/pink Neck: Supple, No JVD Neuro: Alert, Non Focal Cardiovascular: Regular rate Respiratory: No respiratory distress Abdomen: Soft Extremities: No clubbing, No edema, No tenderness/swelling - Results Results: Laboratory Results WBC 15.6 x10^3/uL (4.8-10.8) H 04/21/23 06:50 RBC 3.81 10^6/uL (4.70-6.10) L 04/21/23 06:50 Hgb 9.7 g/dL (14.0-18.0) L 04/21/23 06:50 Hct 30.7 % (42.0-52.0) L 04/21/23 06:50 MCV 80.6 fL (80.0-94.0) 04/21/23 06:50 MCH 25.5 pg (27.0-31.0) L 04/21/23 06:50 MCHC 31.6 g/dL (32.0-36.0) L 04/21/23 06:50 RDW 18.0 % (12.0-15.0) H 04/21/23 06:50 Plt Count 566 10^3/uL (130-450) H 04/21/23 06:50 MPV 8.4 fL (7.4-11.4) 04/21/23 06:50 Neut # (Auto) 12.5 10^3/uL (1.5-6.6) H 04/21/23 06:50 Lymph # (Auto) 1.7 10^3/uL (1.5-3.5) 04/21/23 06:50 [place] # (Auto) 1.3 10^3/uL (0.0-1.0) H 04/21/23 06:50 Eos # (Auto) 0.0 10^3/uL (0.0-0.7) 04/21/23 06:50 Baso # (Auto) 0.0 10^3/uL (0.0-0.1) 04/21/23 06:50 Absolute Nucleated RBC 0.00 x10^3/uL 04/21/23 06:50 Nucleated RBC % 0.0 /100WBC 04/21/23 06:50 Sodium 130 mmol/L (135-145) L 04/21/23 06:50 Potassium 4.1 mmol/L (3.5-4.5) 04/21/23 06:50 Chloride 91 mmol/L (101-111) L 04/21/23 06:50 Carbon Dioxide 33 mmol/L (21-32) H 04/21/23 06:50 Anion Gap 6.0 (6-13) 04/21/23 06:50 BUN 13 mg/dL (6-20) 04/21/23 06:50 Creatinine 0.4 mg/dL (0.6-1.3) L 04/21/23 06:50 Estimated GFR (MDRD) 218 (>89) 04/21/23 06:50 Glucose 95 mg/dL (74-104) 04/21/23 06:50 Lactic Acid 1.5 mmol/L (0.5-2.2) 04/10/23 16:35 Calcium 8.8 mg/dL (8.5-10.3) 04/21/23 06:50 Total Bilirubin 0.4 mg/dL (0.2-1.0) 04/21/23 06:50 AST 21 IU/L (10-42) 04/21/23 06:50 ALT 64 IU/L (10-60) H 04/21/23 06:50 Alkaline Phosphatase 89 IU/L (42-121) 04/21/23 06:50 Total Protein 6.2 g/dL (6.4-8.9) L 04/21/23 06:50 Albumin 2.8 g/dL (3.2-5.5) L 04/21/23 06:50 Globulin 3.4 g/dL (2.1-4.2) 04/21/23 06:50 Albumin/Globulin Ratio 0.8 (1.0-2.2) L 04/21/23 06:50 Lipase 19 U/L (22-51) L 04/10/23 16:35 Urine Color YELLOW 04/12/23 18:00 Urine Clarity CLEAR (CLEAR) 04/12/23 18:00 Urine pH 5.0 PH (5.0-7.5) 04/12/23 18:00 Ur Specific [place] 1.025 (1.002-1.030) 04/12/23 18:00 Urine Protein NEGATIVE mg/dL (NEGATIVE) 04/12/23 18:00 Urine Glucose (UA) NEGATIVE mg/dL (NEGATIVE) 04/12/23 18:00 Urine Ketones NEGATIVE mg/dL (NEGATIVE) 04/12/23 18:00 Urine Occult Blood NEGATIVE (NEGATIVE) 04/12/23 18:00 Urine Nitrite NEGATIVE (NEGATIVE) 04/12/23 18:00 Urine Bilirubin NEGATIVE (NEGATIVE) 04/12/23 18:00 Urine Urobilinogen 0.2 (NORMAL) E.U./dL (NORMAL) 04/12/23 18:00 Ur Leukocyte Esterase NEGATIVE (NEGATIVE) 04/12/23 18:00 Urine RBC 0-5 /HPF (0-5) 04/12/23 18:00 Urine WBC 0-3 /HPF (0-3) 04/12/23 18:00 Ur Squamous Epith Cells RARE Squamous (<= Few) 04/12/23 18:00 Urine Bacteria Rare /HPF (None Seen) 04/12/23 18:00 Urine Mucus Few Strands 04/12/23 18:00 Urine Culture Comments NOT INDICATED 04/12/23 18:00 Fluid Source PLEURAL 04/10/23 18:30 Fluid Color YELLOW 04/10/23 18:30 Fluid Clarity CLEAR 04/10/23 18:30 Fluid WBC 352 /mm^3 04/10/23 18:30 Fluid RBC < 3000 /mm^3 04/10/23 18:30 Fluid Neutrophils % 21.0 % 04/10/23 18:30 Fluid Lymphocytes % 66.0 % 04/10/23 18:30 Fluid Monocytes % 3.0 % 04/10/23 18:30 Fluid Macrophages % 2.0 % 04/10/23 18:30 Fld Mesothelial Cell % 8.0 % 04/10/23 18:30 Nasal Adenovirus (PCR) NOT DETECTED 04/10/23 20:30 Nasal B. parapertussis DNA (PCR) NOT DETECTED 04/10/23 20:30 Nasal Coronavir 229E PCR NOT DETECTED 04/10/23 20:30 Nasal Coronavir HKU1 PCR NOT DETECTED 04/10/23 20:30 Nasal Coronavir NL63 PCR NOT DETECTED 04/10/23 20:30 Nasal Coronavir OC43 PCR NOT DETECTED 04/10/23 20:30 Nasal Enterovir/Rhinovir PCR NOT DETECTED 04/10/23 20:30 Nasal Influenza B PCR NOT DETECTED 04/10/23 20:30 Nasal Influenza A PCR NOT DETECTED 04/10/23 20:30 Nasal Parainfluen 1 PCR NOT DETECTED 04/10/23 20:30 Nasal Parainfluen 2 PCR NOT DETECTED 04/10/23 20:30 Nasal Parainfluen 3 PCR NOT DETECTED 04/10/23 20:30 Nasal Parainfluen 4 PCR NOT DETECTED 04/10/23 20:30 Nasal RSV (PCR) NOT DETECTED 04/10/23 20:30 Nasal B.pertussis DNA PCR NOT DETECTED 04/10/23 20:30 Nasal C.pneumoniae (PCR) NOT DETECTED 04/10/23 20:30 Estiven Human Metapneumo PCR NOT DETECTED 04/10/23 20:30 Nasal M.pneumoniae (PCR) NOT DETECTED 04/10/23 20:30 Nasal SARS-CoV-2 (PCR) NOT DETECTED 04/10/23 20:30
[2023-04-21] MEDS: HYDROcod/ACETAM 5/325 MG TABLET PO PRN (19:56)
[2023-04-22] MEDS: MORPHINE ER 60 MG TABLET PO SCH ×3 (01:01→16:02)
[2023-04-22] MEDS: MORPHINE ER 15 MG TABLET PO SCH ×3 (01:02→16:03)
[2023-04-22] MEDS: SODIUM CHLORIDE FLUSH 0.9% 10 ML SYRINGE IVP SCH ×3 (01:08→16:03)
[2023-04-22] MEDS: LORazepam 1 MG TABLET PO SCH ×3 (03:24→17:09)
[2023-04-22] MEDS: HYDROcod/ACETAM 5/325 MG TABLET PO PRN (03:25)
[2023-04-22 05:19] LABS: HCT - HEMATOCRIT 29.8 % (42.0-52.0); HGB - HEMOGLOBIN 9.1 g/dL (14.0-18.0); LYMPHOCYTES # (AUTO) 0.7 10^3/uL (1.5-3.5); LYMPHOCYTES % (AUTO) 6.5 %; MEAN CORPUSCULAR HEMOGLOBIN 25.1 pg (27.0-31.0); MEAN CORPUSCULAR HGB CONC 30.5 g/dL (32.0-36.0); MEAN CORPUSCULAR VOLUME 82.3 fL (80.0-94.0); MEAN PLATELET VOLUME 8.4 fL (7.4-11.4); MONOCYTES # (AUTO) 0.6 10^3/uL (0.0-1.0); MONOCYTES % (AUTO) 5.1 %; NEUTROPHILS % (AUTO) 87.9 %; PLT - PLATELET COUNT 500 10^3/uL (130-450); RED BLOOD COUNT 3.62 10^6/uL (4.70-6.10); RED CELL DISTRIBUTION WIDTH 18.4 % (12.0-15.0); WHITE BLOOD COUNT 11.4 x10^3/uL (4.8-10.8)
[2023-04-22 05:35] LABS: ALBUMIN 2.7 g/dL (3.2-5.5); ALBUMIN/GLOBULIN RATIO 0.9 (1.0-2.2); BILIRUBIN,TOTAL 0.3 mg/dL (0.2-1.0); CALCIUM 8.6 mg/dL (8.5-10.3); CREATININE 0.4 mg/dL (0.6-1.3); POTASSIUM 4.5 mmol/L (3.5-4.5); TOTAL PROTEIN 5.7 g/dL (6.4-8.9)
[2023-04-22] MEDS: PANTOPRAZOLE 40 MG TABLET PO SCH ×2 (06:55→07:30)
[2023-04-22] MEDS: LIDOCAINE OINTMENT 5% 35.44 GM TUBE TOP PRN (06:55)
[2023-04-22] MEDS: CALCIUM CARBONATE CHEW 500 MG TABLET PO PRN (07:02)
[2023-04-22] MEDS: CALCIUM CARB (OYSTER SHELL) 500 MG TABLET PO SCH (08:02)
[2023-04-22] MEDS: dexAMETHasone 4 MG TABLET PO SCH ×2 (08:02→17:09)
[2023-04-22] MEDS: CHOLECALCIFEROL 25 MCG TABLET PO SCH (08:03)
[2023-04-22] MEDS: MULTIVITAMIN W/MINERALS TABLET PO SCH (08:03)
[2023-04-22] MEDS: LACTOBACILLUS RHAMNOSUS GG CAPSULE PO SCH (08:03)
[2023-04-22] MEDS: clonazePAM 0.5 MG TABLET PO SCH ×3 (08:03→22:55)
[2023-04-22] MEDS: ENOXAPARIN 40 MG/0.4 ML SYRINGE SUBQ SCH (08:03)
--- NOTE | 2023-04-22 13:54 | PROVIDER PROGRESS NOTE ---
Assessment/Plan - Problem List (1) Metastatic primary lung cancer Assessment/Plan: Patient had CT of the chest done 3 weeks ago which showed a right lung mass, concerning for malignancy. Pt has had no biopsy. Pt had large right pleural, was tapped at admission and was sent for cytology and it was negative for malignancy. Both patient and his do not want the fine-needle biopsy at this time. He presented with confusion and his MRI of Brain show multiple enhancing masses bilaterally, suspicious for metastatic disease. Pt had symptomatic improvement after patient was started on oral dexamethasone, and after that his requested to explore patient's capacity for going to rehab for strengthening before coming home. PT/OT evaluations did agree that patient could benefit from rehab at a SNF. Hospice was consulted and hospice clinical supervisor agreed that going to SNF first before being accepted by Hospice should be done. Plan: Continue with Decadron We are awaiting a single case agreement with his [employer] plan to go to a SNF (2) Transaminitis At mid-hospital stay, he had elevated LFTs which were not present at admission. LFTs are close to normal range. Etiology of rise and fall is unclear. (3) Right large pleural effusion Patient had a thoracentesis done by the ER when he was found to have large lower right pleural effusion. Cytology of pleural effusion showed negative Malignancy. (4) Physical deconditioning Patient presented significantly physical deconditioned, but has gradually improved since on Decadron and since started working with PT and OT Plan: Awaiting for acceptance at a SNF. He has been medically cleared for discharge. (5) Anorexia Pt had poor appetite and has malnutrition. There has been improvement since Decadron was started. Plan: Continue Decadron I requested Social Services Assistant to give small frequent meals, which is what he requested (6) Hx of copd He is not in a COPD exacerbation (7) Chronic fatigue syndrome/ myalgia Cont home anti-anxiety meds and the pain medications (8) Lethargy IMPROVED Plan: Continue Decadron Continue his usual home pain med doses so he does not withdraw (9) No Right atrial mass by Echo Assessment/Plan: Echo study showed there is no right atrium mass. It was probably invagination of right atrial wall which had the appearance of a right atrial mass on his chest CT. Plan: I removed RA mass from his list of diagnoses - Current Meds Current Meds: Current Medications Generic Name Dose Route Start Last Admin Trade Name Freq PRN Reason Stop Dose Admin Acetaminophen 1,000 mg 04/19/23 17:09 04/21/23 19:56 Acetaminophen 500 Mg Tablet PO 1,000 mg TID PRN Administration PAIN 1-4 Hydrocodone Bitart/Acetaminophen 1 tab 04/11/23 10:28 04/22/23 03:25 Hydrocod/Acetam 5/325 Mg Tablet PO 1 tab Q4HR PRN Administration Moderate Pain (Level 4-6) Albuterol/Ipratropium 3 ml 04/10/23 21:17 04/10/23 22:55 Ipratropium/Albuterol 3 Ml Neb INH 3 ml Q4HR PRN Administration Wheezing Aspirin 975 mg 04/11/23 14:31 04/20/23 01:24 Aspirin 325 Mg Tablet PO 975 mg TID PRN Administration PAIN 1-4 Calcium Carbonate/Glycine 500 mg 04/14/23 12:53 04/22/23 07:02 Calcium Carbonate Chew 500 Mg Tablet PO 500 mg TID PRN Administration INDIGESTION Calcium Carbonate/Glycine 1,000 mg 04/20/23 09:00 04/22/23 08:02 Calcium Carb (Oyster Shell) 500 Mg Tablet PO 1,000 mg DAILY CHARANJIT Administration Cholecalciferol 25 mcg 04/20/23 09:00 04/22/23 08:03 Cholecalciferol 25 Mcg Tablet PO 25 mcg DAILY CHARANJIT Administration Clonazepam 4 mg 04/11/23 15:00 04/22/23 08:03 Clonazepam 0.5 Mg Tablet PO 4 mg Q8H CHARANJIT Administration Dexamethasone 4 mg 04/12/23 17:00 04/22/23 08:02 Dexamethasone 4 Mg Tablet PO 4 mg BIDWM CHARANJIT Administration Enoxaparin Sodium 40 mg 04/12/23 09:00 04/22/23 08:03 Enoxaparin 40 Mg/0.4 Ml Syringe SUBQ 40 mg DAILY CHARANJIT Administration Lactobacillus Rhamnosus 1 cap 04/16/23 17:46 04/22/23 08:03 Lactobacillus Rhamnosus Gg Capsule PO 1 cap DAILY CHARANJIT Administration Lidocaine 1 applic 04/16/23 17:57 04/22/23 06:55 Lidocaine Ointment 5% 35.44 Gm Tube TOP 1 applic BID PRN Administration MINOR PAIN Lorazepam 4 mg 04/19/23 17:15 04/22/23 08:02 Lorazepam 1 Mg Tablet PO 4 mg Q8H CHARANJIT Administration Morphine Sulfate 15 mg 04/11/23 16:00 04/22/23 08:03 Morphine Er 15 Mg Tablet PO 15 mg Q8H CHARANJIT Administration Morphine Sulfate 180 mg 04/15/23 16:00 04/22/23 08:02 Morphine Er 60 Mg Tablet PO 180 mg Q8H CHARANJIT Administration Multivitamins/Minerals 1 tab 04/12/23 12:00 04/22/23 08:03 Multivitamin W/Minerals Tablet PO 1 tab DAILYWM CHARANJIT Administration Pantoprazole Sodium 40 mg 04/17/23 08:00 04/22/23 07:30 Pantoprazole 40 Mg Tablet PO Not Given QDAC [facility] Sodium Chloride 10 ml 04/11/23 01:00 04/22/23 08:03 Sodium Chloride Flush 0.9% 10 Ml Syringe IVP 10 ml 0100,0900,1700 [facility] Administration - Lab Result Fish Bone Diagrams: 04/22/23 05:00 04/22/23 05:00 Subjective - Subjective Patient Reports: Resting Comfortably Objective Vital Signs: Vital Signs - 24 hr 04/21/23 04/21/23 04/22/23 16:00 23:43 07:21 Temperature 36.1 C L 37.0 C 36.8 C Heart Rate [ 103 H 91 78 Brachial] Respiratory 20 18 18 Rate Blood Pressure 119/67 122/63 131/99 H [Right Brachial artery] O2 Saturation 98 97 95 Oxygen O2 Source Room air Oxygen Flow Rate 4 I&O (Last 24 Hrs): Intake and Output Totals x24h 04/20/23 04/21/23 04/22/23 23:59 23:59 23:59 Intake Total 2520 1698 840 Output Total 750 600 650 Balance 1770 1098 190 General: Alert, Oriented x3 HEENT: Mucous membr. moist/pink Neck: Supple Neuro: Alert, Non Focal Cardiovascular: Regular rate Respiratory: No respiratory distress Abdomen: No tenderness Extremities: No clubbing, No edema - Results Results: Laboratory Results WBC 11.4 x10^3/uL (4.8-10.8) H 04/22/23 05:00 RBC 3.62 10^6/uL (4.70-6.10) L 04/22/23 05:00 Hgb 9.1 g/dL (14.0-18.0) L 04/22/23 05:00 Hct 29.8 % (42.0-52.0) L 04/22/23 05:00 MCV 82.3 fL (80.0-94.0) 04/22/23 05:00 MCH 25.1 pg (27.0-31.0) L 04/22/23 05:00 MCHC 30.5 g/dL (32.0-36.0) L 04/22/23 05:00 RDW 18.4 % (12.0-15.0) H 04/22/23 05:00 Plt Count 500 10^3/uL (130-450) H 04/22/23 05:00 MPV 8.4 fL (7.4-11.4) 04/22/23 05:00 Neut # (Auto) 10.0 10^3/uL (1.5-6.6) H 04/22/23 05:00 Lymph # (Auto) 0.7 10^3/uL (1.5-3.5) L 04/22/23 05:00 [place] # (Auto) 0.6 10^3/uL (0.0-1.0) 04/22/23 05:00 Eos # (Auto) 0.0 10^3/uL (0.0-0.7) 04/22/23 05:00 Baso # (Auto) 0.0 10^3/uL (0.0-0.1) 04/22/23 05:00 Absolute Nucleated RBC 0.00 x10^3/uL 04/22/23 05:00 Nucleated RBC % 0.0 /100WBC 04/22/23 05:00 Sodium 133 mmol/L (135-145) L 04/22/23 05:00 Potassium 4.5 mmol/L (3.5-4.5) 04/22/23 05:00 Chloride 95 mmol/L (101-111) L 04/22/23 05:00 Carbon Dioxide 33 mmol/L (21-32) H 04/22/23 05:00 Anion Gap 5.0 (6-13) L 04/22/23 05:00 BUN 18 mg/dL (6-20) 04/22/23 05:00 Creatinine 0.4 mg/dL (0.6-1.3) L 04/22/23 05:00 Estimated GFR (MDRD) 218 (>89) 04/22/23 05:00 Glucose 112 mg/dL (74-104) H 04/22/23 05:00 Lactic Acid 1.5 mmol/L (0.5-2.2) 04/10/23 16:35 Calcium 8.6 mg/dL (8.5-10.3) 04/22/23 05:00 Total Bilirubin 0.3 mg/dL (0.2-1.0) 04/22/23 05:00 AST 21 IU/L (10-42) 04/22/23 05:00 ALT 69 IU/L (10-60) H 04/22/23 05:00 Alkaline Phosphatase 98 IU/L (42-121) 04/22/23 05:00 Total Protein 5.7 g/dL (6.4-8.9) L 04/22/23 05:00 Albumin 2.7 g/dL (3.2-5.5) L 04/22/23 05:00 Globulin 3.0 g/dL (2.1-4.2) 04/22/23 05:00 Albumin/Globulin Ratio 0.9 (1.0-2.2) L 04/22/23 05:00 Lipase 19 U/L (22-51) L 04/10/23 16:35 Urine Color YELLOW 04/12/23 18:00 Urine Clarity CLEAR (CLEAR) 04/12/23 18:00 Urine pH 5.0 PH (5.0-7.5) 04/12/23 18:00 Ur Specific [place] 1.025 (1.002-1.030) 04/12/23 18:00 Urine Protein NEGATIVE mg/dL (NEGATIVE) 04/12/23 18:00 Urine Glucose (UA) NEGATIVE mg/dL (NEGATIVE) 04/12/23 18:00 Urine Ketones NEGATIVE mg/dL (NEGATIVE) 04/12/23 18:00 Urine Occult Blood NEGATIVE (NEGATIVE) 04/12/23 18:00 Urine Nitrite NEGATIVE (NEGATIVE) 04/12/23 18:00 Urine Bilirubin NEGATIVE (NEGATIVE) 04/12/23 18:00 Urine Urobilinogen 0.2 (NORMAL) E.U./dL (NORMAL) 04/12/23 18:00 Ur Leukocyte Esterase NEGATIVE (NEGATIVE) 04/12/23 18:00 Urine RBC 0-5 /HPF (0-5) 04/12/23 18:00 Urine WBC 0-3 /HPF (0-3) 04/12/23 18:00 Ur Squamous Epith Cells RARE Squamous (<= Few) 04/12/23 18:00 Urine Bacteria Rare /HPF (None Seen) 04/12/23 18:00 Urine Mucus Few Strands 04/12/23 18:00 Urine Culture Comments NOT INDICATED 04/12/23 18:00 Fluid Source PLEURAL 04/10/23 18:30 Fluid Color YELLOW 04/10/23 18:30 Fluid Clarity CLEAR 04/10/23 18:30 Fluid WBC 352 /mm^3 04/10/23 18:30 Fluid RBC < 3000 /mm^3 04/10/23 18:30 Fluid Neutrophils % 21.0 % 04/10/23 18:30 Fluid Lymphocytes % 66.0 % 04/10/23 18:30 Fluid Monocytes % 3.0 % 04/10/23 18:30 Fluid Macrophages % 2.0 % 04/10/23 18:30 Fld Mesothelial Cell % 8.0 % 04/10/23 18:30 Nasal Adenovirus (PCR) NOT DETECTED 04/10/23 20:30 Nasal B. parapertussis DNA (PCR) NOT DETECTED 04/10/23 20:30 Nasal Coronavir 229E PCR NOT DETECTED 04/10/23 20:30 Nasal Coronavir HKU1 PCR NOT DETECTED 04/10/23 20:30 Nasal Coronavir NL63 PCR NOT DETECTED 04/10/23 20:30 Nasal Coronavir OC43 PCR NOT DETECTED 04/10/23 20:30 Nasal Enterovir/Rhinovir PCR NOT DETECTED 04/10/23 20:30 Nasal Influenza B PCR NOT DETECTED 04/10/23 20:30 Nasal Influenza A PCR NOT DETECTED 04/10/23 20:30 Nasal Parainfluen 1 PCR NOT DETECTED 04/10/23 20:30 Nasal Parainfluen 2 PCR NOT DETECTED 04/10/23 20:30 Nasal Parainfluen 3 PCR NOT DETECTED 04/10/23 20:30 Nasal Parainfluen 4 PCR NOT DETECTED 04/10/23 20:30 Nasal RSV (PCR) NOT DETECTED 04/10/23 20:30 Nasal B.pertussis DNA PCR NOT DETECTED 04/10/23 20:30 Nasal C.pneumoniae (PCR) NOT DETECTED 04/10/23 20:30 Estiven Human Metapneumo PCR NOT DETECTED 04/10/23 20:30 Nasal M.pneumoniae (PCR) NOT DETECTED 04/10/23 20:30 Nasal SARS-CoV-2 (PCR) NOT DETECTED 04/10/23 20:30
[2023-04-22] MEDS: ACETAMINOPHEN 500 MG TABLET PO PRN (22:55)
[2023-04-23] MEDS: SODIUM CHLORIDE FLUSH 0.9% 10 ML SYRINGE IVP SCH ×3 (01:00→15:56)
[2023-04-23] MEDS: MORPHINE ER 60 MG TABLET PO SCH ×3 (01:00→16:00)
[2023-04-23] MEDS: LORazepam 1 MG TABLET PO SCH ×3 (01:00→17:10)
[2023-04-23] MEDS: MORPHINE ER 15 MG TABLET PO SCH ×3 (01:00→16:01)
[2023-04-23] MEDS: PANTOPRAZOLE 40 MG TABLET PO SCH (07:41)
[2023-04-23] MEDS: clonazePAM 0.5 MG TABLET PO SCH ×3 (07:42→22:42)
[2023-04-23] MEDS: ENOXAPARIN 40 MG/0.4 ML SYRINGE SUBQ SCH (08:36)
[2023-04-23] MEDS: CHOLECALCIFEROL 25 MCG TABLET PO SCH (08:36)
[2023-04-23] MEDS: MULTIVITAMIN W/MINERALS TABLET PO SCH (08:36)
[2023-04-23] MEDS: LACTOBACILLUS RHAMNOSUS GG CAPSULE PO SCH (08:37)
[2023-04-23] MEDS: dexAMETHasone 4 MG TABLET PO SCH ×2 (08:37→17:10)
[2023-04-23] MEDS: CALCIUM CARB (OYSTER SHELL) 500 MG TABLET PO SCH (08:37)
[2023-04-23] MEDS: CALCIUM CARBONATE CHEW 500 MG TABLET PO PRN (08:38)
[2023-04-23] MEDS: LIDOCAINE OINTMENT 5% 35.44 GM TUBE TOP PRN ×2 (13:48→21:32)
--- NOTE | 2023-04-23 17:31 | PROVIDER PROGRESS NOTE ---
Assessment/Plan - Problem List (1) Metastatic primary lung cancer Assessment/Plan: Patient had CT of the chest done 3 weeks ago which showed a right lung mass and was to have a biopsy. Pt had large right pleural, was tapped at admission and was sent for cytology and it was negative for malignancy. Both patient and his do not want the fine-needle biopsy at this time. He presented with confusion and his MRI of Brain show multiple enhancing masses bilaterally, suspicious for metastatic disease. His language is "inappropriate" but his confusion improved after patient was started on oral dexamethasone. He was seen by [facility] and is appropriate for Hospice care vbut will first go to a SNF for some Plan: Continue with Decadron We are awaiting a single case agreement with his [facility] plan to go to a SNF This was a nonbillable rounding visit, no changes were made. (2) Transaminitis At mid-hospital stay, he had elevated LFTs which were not present at admission. LFTs are close to normal range. Etiology of rise and fall is unclear. (3) Right large pleural effusion Patient had a thoracentesis done by the ER when he was found to have large lower right pleural effusion. Cytology of pleural effusion showed negative Chani gnancy. (4) Physical deconditioning Patient presented significantly physical deconditioned, but has gradually improved since on Decadron and since started working with PT and OT Plan: Awaiting for acceptance at a SNF. He has been medically cleared for discharge. (5) Anorexia Pt had poor appetite and has malnutrition. There has been improvement since Decadron was started. Plan: Continue Decadron (6) Hx of copd He is not in a COPD exacerbation (7) Chronic fatigue syndrome/ myalgia Cont home anti-anxiety meds and the pain medications (8) Lethargy RESOLVED after starting Decadron. - Current Meds Current Meds: Current Medications Generic Name Dose Route Start Last Admin Trade Name Freq PRN Reason Stop Dose Admin Acetaminophen 1,000 mg 04/19/23 17:09 04/22/23 22:55 Acetaminophen 500 Mg Tablet PO 1,000 mg TID PRN Administration PAIN 1-4 Hydrocodone Bitart/Acetaminophen 1 tab 04/11/23 10:28 04/22/23 03:25 Hydrocod/Acetam 5/325 Mg Tablet PO 1 tab Q4HR PRN Administration Moderate Pain (Level 4-6) Aspirin 975 mg 07/12/23 14:31 04/20/23 01:24 Aspirin 325 Mg Tablet PO 975 mg TID PRN Administration PAIN 1-4 Calcium Carbonate/Glycine 500 mg 04/14/23 12:53 04/23/23 08:38 Calcium Carbonate Chew 500 Mg Tablet PO 500 mg TID PRN Administration INDIGESTION Cholecalciferol 25 mcg 04/20/23 09:00 04/23/23 08:36 Cholecalciferol 25 Mcg Tablet PO 25 mcg DAILY CHARANJIT Administration Clonazepam 4 mg 04/11/23 15:00 04/23/23 15:28 Clonazepam 0.5 Mg Tablet PO 4 mg Q8H CHARANJIT Administration Dexamethasone 4 mg 04/12/23 17:00 04/23/23 17:10 Dexamethasone 4 Mg Tablet PO 4 mg BIDWM CHARANJIT Administration Enoxaparin Sodium 40 mg 04/12/23 09:00 04/23/23 08:36 Enoxaparin 40 Mg/0.4 Ml Syringe SUBQ 40 mg DAILY CHARANJIT Administration Lactobacillus Rhamnosus 1 cap 04/16/23 17:46 04/23/23 08:37 Lactobacillus Rhamnosus Gg Capsule PO 1 cap DAILY CHARANJIT Administration Lidocaine 1 applic 04/16/23 17:57 04/23/23 13:48 Lidocaine Ointment 5% 35.44 Gm Tube TOP 1 applic BID PRN Administration MINOR PAIN Lorazepam 4 mg 04/19/23 17:15 04/23/23 17:10 Lorazepam 1 Mg Tablet PO 4 mg Q8H CHARANJIT Administration Morphine Sulfate 15 mg 04/11/23 16:00 04/23/23 16:01 Morphine Er 15 Mg Tablet PO 15 mg Q8H CHARANJIT Administration Morphine Sulfate 180 mg 04/15/23 16:00 04/23/23 16:00 Morphine Er 60 Mg Tablet PO 180 mg Q8H CHARANJIT Administration Multivitamins/Minerals 1 tab 04/12/23 12:00 04/23/23 08:36 Multivitamin W/Minerals Tablet PO 1 tab DAILYWM CHARANJIT Administration Pantoprazole Sodium 40 mg 04/17/23 08:00 04/23/23 07:41 Pantoprazole 40 Mg Tablet PO 40 mg QDAC CHARANJIT Administration Sodium Chloride 10 ml 04/11/23 01:00 04/23/23 15:56 Sodium Chloride Flush 0.9% 10 Ml Syringe IVP 10 ml 0100,0900,1700 CHARANJIT Administration - Lab Result Fish Bone Diagrams: 04/22/23 05:00 04/22/23 05:00 - Additional Planning My Orders: My Active Orders 04/24/23 09:00 Calcium Carb (Oyster Shell) [Oysco-500] 500 mg PO BID Subjective - Subjective Patient Reports: No Complaints Objective Vital Signs: Vital Signs - 24 hr 04/22/23 04/23/23 04/23/23 23:25 08:00 15:40 Temperature 37.0 C 36.8 C 37 C Heart Rate [ 98 77 99 Brachial] Respiratory 18 18 16 Rate Blood Pressure 133/73 H 120/84 H 112/64 [Right Brachial artery] O2 Saturation 95 96 96 Oxygen O2 Source Room air Oxygen Flow Rate 4 I&O (Last 24 Hrs): Intake and Output Totals x24h 04/21/23 04/22/23 04/23/23 23:59 23:59 23:59 Intake Total 1698 1660 1120 Output Total 600 1750 1650 Balance 1098 -90 -530 General: Alert HEENT: Mucous membr. moist/pink Neck: Supple Neuro: Alert, Non Focal, Other (Poor memory, poor decision-making, and makes inappropriate comments) Abdomen: Soft Extremities: No edema - Results Results: Laboratory Results WBC 11.4 x10^3/uL (4.8-10.8) H 04/22/23 05:00 RBC 3.62 10^6/uL (4.70-6.10) L 04/22/23 05:00 Hgb 9.1 g/dL (14.0-18.0) L 04/22/23 05:00 Hct 29.8 % (42.0-52.0) L 04/22/23 05:00 MCV 82.3 fL (80.0-94.0) 04/22/23 05:00 MCH 25.1 pg (27.0-31.0) L 04/22/23 05:00 MCHC 30.5 g/dL (32.0-36.0) L 04/22/23 05:00 RDW 18.4 % (12.0-15.0) H 04/22/23 05:00 Plt Count 500 10^3/uL (130-450) H 04/22/23 05:00 MPV 8.4 fL (7.4-11.4) 04/22/23 05:00 Neut # (Auto) 10.0 10^3/uL (1.5-6.6) H 04/22/23 05:00 Lymph # (Auto) 0.7 10^3/uL (1.5-3.5) L 04/22/23 05:00 [place] # (Auto) 0.6 10^3/uL (0.0-1.0) 04/22/23 05:00 Eos # (Auto) 0.0 10^3/uL (0.0-0.7) 04/22/23 05:00 Baso # (Auto) 0.0 10^3/uL (0.0-0.1) 04/22/23 05:00 Absolute Nucleated RBC 0.00 x10^3/uL 04/22/23 05:00 Nucleated RBC % 0.0 /100WBC 04/22/23 05:00 Sodium 133 mmol/L (135-145) L 04/22/23 05:00 Potassium 4.5 mmol/L (3.5-4.5) 04/22/23 05:00 Chloride 95 mmol/L (101-111) L 04/22/23 05:00 Carbon Dioxide 33 mmol/L (21-32) H 04/22/23 05:00 Anion Gap 5.0 (6-13) L 04/22/23 05:00 BUN 18 mg/dL (6-20) 04/22/23 05:00 Creatinine 0.4 mg/dL (0.6-1.3) L 04/22/23 05:00 Estimated GFR (MDRD) 218 (>89) 04/22/23 05:00 Glucose 112 mg/dL (74-104) H 04/22/23 05:00 Lactic Acid 1.5 mmol/L (0.5-2.2) 04/10/23 16:35 Calcium 8.6 mg/dL (8.5-10.3) 04/22/23 05:00 Total Bilirubin 0.3 mg/dL (0.2-1.0) 04/22/23 05:00 AST 21 IU/L (10-42) 04/22/23 05:00 ALT 69 IU/L (10-60) H 04/22/23 05:00 Alkaline Phosphatase 98 IU/L (42-121) 04/22/23 05:00 Total Protein 5.7 g/dL (6.4-8.9) L 04/22/23 05:00 Albumin 2.7 g/dL (3.2-5.5) L 04/22/23 05:00 Globulin 3.0 g/dL (2.1-4.2) 04/22/23 05:00 Albumin/Globulin Ratio 0.9 (1.0-2.2) L 04/22/23 05:00 Lipase 19 U/L (22-51) L 04/10/23 16:35 Urine Color YELLOW 04/12/23 18:00 Urine Clarity CLEAR (CLEAR) 04/12/23 18:00 Urine pH 5.0 PH (5.0-7.5) 04/12/23 18:00 Ur Specific [place] 1.025 (1.002-1.030) 04/12/23 18:00 Urine Protein NEGATIVE mg/dL (NEGATIVE) 04/12/23 18:00 Urine Glucose (UA) NEGATIVE mg/dL (NEGATIVE) 04/12/23 18:00 Urine Ketones NEGATIVE mg/dL (NEGATIVE) 04/12/23 18:00 Urine Occult Blood NEGATIVE (NEGATIVE) 04/12/23 18:00 Urine Nitrite NEGATIVE (NEGATIVE) 04/12/23 18:00 Urine Bilirubin NEGATIVE (NEGATIVE) 04/12/23 18:00 Urine Urobilinogen 0.2 (NORMAL) E.U./dL (NORMAL) 04/12/23 18:00 Ur Leukocyte Esterase NEGATIVE (NEGATIVE) 04/12/23 18:00 Urine RBC 0-5 /HPF (0-5) 04/12/23 18:00 Urine WBC 0-3 /HPF (0-3) 04/12/23 18:00 Ur Squamous Epith Cells RARE Squamous (<= Few) 04/12/23 18:00 Urine Bacteria Rare /HPF (None Seen) 04/12/23 18:00 Urine Mucus Few Strands 04/12/23 18:00 Urine Culture Comments NOT INDICATED 04/12/23 18:00 Fluid Source PLEURAL 04/10/23 18:30 Fluid Color YELLOW 04/10/23 18:30 Fluid Clarity CLEAR 04/10/23 18:30 Fluid WBC 352 /mm^3 04/10/23 18:30 Fluid RBC < 3000 /mm^3 04/10/23 18:30 Fluid Neutrophils % 21.0 % 04/10/23 18:30 Fluid Lymphocytes % 66.0 % 04/10/23 18:30 Fluid Monocytes % 3.0 % 04/10/23 18:30 Fluid Macrophages % 2.0 % 04/10/23 18:30 Fld Mesothelial Cell % 8.0 % 04/10/23 18:30 Nasal Adenovirus (PCR) NOT DETECTED 04/10/23 20:30 Nasal B. parapertussis DNA (PCR) NOT DETECTED 04/10/23 20:30 Nasal Coronavir 229E PCR NOT DETECTED 04/10/23 20:30 Nasal Coronavir HKU1 PCR NOT DETECTED 04/10/23 20:30 Nasal Coronavir NL63 PCR NOT DETECTED 04/10/23 20:30 Nasal Coronavir OC43 PCR NOT DETECTED 04/10/23 20:30 Nasal Enterovir/Rhinovir PCR NOT DETECTED 04/10/23 20:30 Nasal Influenza B PCR NOT DETECTED 04/10/23 20:30 Nasal Influenza A PCR NOT DETECTED 04/10/23 20:30 Nasal Parainfluen 1 PCR NOT DETECTED 04/10/23 20:30 Nasal Parainfluen 2 PCR NOT DETECTED 04/10/23 20:30 Nasal Parainfluen 3 PCR NOT DETECTED 04/10/23 20:30 Nasal Parainfluen 4 PCR NOT DETECTED 04/10/23 20:30 Nasal RSV (PCR) NOT DETECTED 04/10/23 20:30 Nasal B.pertussis DNA PCR NOT DETECTED 04/10/23 20:30 Nasal C.pneumoniae (PCR) NOT DETECTED 04/10/23 20:30 Estiven Human Metapneumo PCR NOT DETECTED 04/10/23 20:30 Nasal M.pneumoniae (PCR) NOT DETECTED 04/10/23 20:30 Nasal SARS-CoV-2 (PCR) NOT DETECTED 04/10/23 20:30
[2023-04-23] MEDS ORDERED: clonazePAM 0.5 MG TABLET ONE (23:05)
[2023-04-24] MEDS: SODIUM CHLORIDE FLUSH 0.9% 10 ML SYRINGE IVP SCH ×3 (01:19→19:53)
[2023-04-24] MEDS: MORPHINE ER 15 MG TABLET PO SCH ×4 (01:19→23:59)
[2023-04-24] MEDS: LORazepam 1 MG TABLET PO SCH ×3 (01:19→17:08)
[2023-04-24] MEDS: MORPHINE ER 60 MG TABLET PO SCH ×4 (01:19→23:59)
[2023-04-24] MEDS: LIDOCAINE OINTMENT 5% 35.44 GM TUBE TOP PRN (02:54)
[2023-04-24] MEDS: HYDROcod/ACETAM 5/325 MG TABLET PO PRN ×2 (02:54→07:02)
[2023-04-24] MEDS: clonazePAM 0.5 MG TABLET PO SCH ×3 (07:01→22:29)
[2023-04-24] MEDS: PANTOPRAZOLE 40 MG TABLET PO SCH (07:03)
[2023-04-24] MEDS: CHOLECALCIFEROL 25 MCG TABLET PO SCH (08:10)
[2023-04-24] MEDS: ENOXAPARIN 40 MG/0.4 ML SYRINGE SUBQ SCH (08:10)
[2023-04-24] MEDS: CALCIUM CARB (OYSTER SHELL) 500 MG TABLET PO SCH ×2 (08:10→20:17)
[2023-04-24] MEDS: LACTOBACILLUS RHAMNOSUS GG CAPSULE PO SCH (08:10)
[2023-04-24] MEDS: dexAMETHasone 4 MG TABLET PO SCH ×2 (08:10→17:09)
[2023-04-24] MEDS: MULTIVITAMIN W/MINERALS TABLET PO SCH (08:10)
[2023-04-24] MEDS: LIDOCAINE PATCH 5% TOP PRN (08:48)
[2023-04-24] MEDS: ACETAMINOPHEN 500 MG TABLET PO PRN (17:03)
[2023-04-24] MEDS: CALCIUM CARBONATE CHEW 500 MG TABLET PO PRN (17:03)
--- NOTE | 2023-04-24 19:10 | PROVIDER PROGRESS NOTE ---
Assessment/Plan - Problem List (1) Metastatic primary lung cancer Assessment/Plan: Patient had CT of the chest done 3 weeks ago which showed a right lung mass and was to have a biopsy. Pt had large right pleural, was tapped at admission and was sent for cytology and it was negative for malignancy. Both patient and his do not want the fine-needle biopsy at this time. He presented with confusion and his MRI of Brain show multiple enhancing masses bilaterally, suspicious for metastatic disease. His language is "inappropriate" but his confusion improved after patient was started on oral dexamethasone. He was seen by [employer] sales consultant and is appropriate for Hospice care vbut will first go to a SNF for some Plan: Continue with Decadron We are awaiting a single case agreement with his [employer] plan to go to a SNF This was a nonbillable rounding visit, no changes were made. (2) Transaminitis At mid-hospital stay, he had elevated LFTs which were not present at admission. LFTs are close to normal range. Etiology of rise and fall is unclear. (3) Right large pleural effusion Patient had a thoracentesis done by the ER when he was found to have large lower right pleural effusion. Cytology of pleural effusion showed negative Malignancy. (4) Physical deconditioning Patient presented significantly physical deconditioned, but has gradually improved since on Decadron and since started working with PT and OT Plan: Awaiting for acceptance at a SNF. He has been medically cleared for discharge. (5) Anorexia Pt had poor appetite and has malnutrition. There has been improvement since Decadron was started. Plan: Continue Decadron (6) Hx of copd He is not in a COPD exacerbation (7) Chronic fatigue syndrome/ myalgia Cont home anti-anxiety meds and the pain medications (8) Lethargy RESOLVED after starting Decadron. - Current Meds Current Meds: Current Medications Generic Name Dose Route Start Last Admin Trade Name Freq PRN Reason Stop Dose Admin Acetaminophen 1,000 mg 04/19/23 17:09 04/24/23 17:03 Acetaminophen 500 Mg Tablet PO 1,000 mg TID PRN Administration PAIN 1-4 Hydrocodone Bitart/Acetaminophen 1 tab 04/11/23 10:28 04/24/23 07:02 Hydrocod/Acetam 5/325 Mg Tablet PO 1 tab Q4HR PRN Administration Moderate Pain (Level 4-6) Aspirin 975 mg 04/11/23 14:31 04/20/23 01:24 Aspirin 325 Mg Tablet PO 975 mg TID PRN Administration PAIN 1-4 Calcium Carbonate/Glycine 500 mg 04/14/23 12:53 04/24/23 17:03 Calcium Carbonate Chew 500 Mg Tablet PO 500 mg TID PRN Administration INDIGESTION Calcium Carbonate/Glycine 500 mg 04/24/23 09:00 04/24/23 08:10 Calcium Carb (Oyster Shell) 500 Mg Tablet PO 500 mg BID CHARANJIT Administration Cholecalciferol 25 mcg 04/20/23 09:00 04/24/23 08:10 Cholecalciferol 25 Mcg Tablet PO 25 mcg DAILY CHARANJIT Administration Clonazepam 4 mg 04/11/23 15:00 04/24/23 14:48 Clonazepam 0.5 Mg Tablet PO 4 mg Q8H CHARANJIT Administration Dexamethasone 4 mg 04/12/23 17:00 04/24/23 17:09 Dexamethasone 4 Mg Tablet PO 4 mg BIDWM CHARANJIT Administration Enoxaparin Sodium 40 mg 04/12/23 09:00 04/24/23 08:10 Enoxaparin 40 Mg/0.4 Ml Syringe SUBQ 40 mg DAILY CHARANJIT Administration Lactobacillus Rhamnosus 1 cap 04/16/23 17:46 04/24/23 08:10 Lactobacillus Rhamnosus Gg Capsule PO 1 cap DAILY CHARANJIT Administration Lidocaine 1 applic 04/16/23 17:57 04/24/23 02:54 Lidocaine Ointment 5% 35.44 Gm Tube TOP 1 applic BID PRN Administration MINOR PAIN Lidocaine 1 patch 04/24/23 08:06 04/24/23 08:48 Lidocaine Patch 5% TOP 1 patch DAILY PRN Administration Moderate Pain (Level 4-6) Lorazepam 4 mg 04/19/23 17:15 04/24/23 17:08 Lorazepam 1 Mg Tablet PO 4 mg Q8H CHARANJIT Administration Morphine Sulfate 15 mg 04/11/23 16:00 04/24/23 16:04 Morphine Er 15 Mg Tablet PO 15 mg Q8H CHARANJIT Administration Morphine Sulfate 180 mg 04/15/23 16:00 04/24/23 16:03 Morphine Er 60 Mg Tablet PO 180 mg Q8H CHARANJIT Administration Multivitamins/Minerals 1 tab 04/12/23 12:00 04/24/23 08:10 Multivitamin W/Minerals Tablet PO 1 tab DAILYWM CHARANJIT Administration Pantoprazole Sodium 40 mg 04/17/23 08:00 04/24/23 07:03 Pantoprazole 40 Mg Tablet PO 40 mg QDAC CHARANJIT Administration Sodium Chloride 10 ml 04/11/23 01:00 04/24/23 15:49 Sodium Chloride Flush 0.9% 10 Ml Syringe IVP 10 ml 0100,0900,1700 CHARANJIT Administration - Lab Result Fish Bone Diagrams: 04/22/23 05:00 04/22/23 05:00 - Additional Planning My Orders: My Active Orders 04/24/23 08:06 Lidocaine Patch 5% [Lidoderm Patch] 1 patch TOP DAILY PRN 04/24/23 09:00 Calcium Carb ([place]) [[place]-500] 500 mg PO BID Subjective - Subjective Patient Reports: No Complaints Objective Vital Signs: Vital Signs - 24 hr 04/23/23 04/24/23 04/24/23 23:18 07:31 15:40 Temperature 37.2 C 36.7 C 36.8 C Heart Rate [ 92 101 H 100 Brachial] Respiratory 18 16 18 Rate Blood Pressure 124/66 113/69 112/64 [Right Brachial artery] O2 Saturation 94 96 96 Oxygen O2 Source Room air Oxygen Flow Rate 4 I&O (Last 24 Hrs): Intake and Output Totals x24h 04/22/23 04/23/23 04/24/23 23:59 23:59 23:59 Intake Total 1660 1607 780 Output Total 1750 2650 1350 Balance -90 -1043 -570 General: Alert, Oriented x3 HEENT: PERRLA Neck: Supple Neuro: Alert, Non Focal, Other (Is impulsive and makes odd comments) Cardiovascular: No murmurs Respiratory: No respiratory distress Abdomen: Soft Extremities: No clubbing, No edema - Results Results: Laboratory Results WBC 11.4 x10^3/uL (4.8-10.8) H 04/22/23 05:00 RBC 3.62 10^6/uL (4.70-6.10) L 04/22/23 05:00 Hgb 9.1 g/dL (14.0-18.0) L 04/22/23 05:00 Hct 29.8 % (42.0-52.0) L 04/22/23 05:00 MCV 82.3 fL (80.0-94.0) 04/22/23 05:00 MCH 25.1 pg (27.0-31.0) L 04/22/23 05:00 MCHC 30.5 g/dL (32.0-36.0) L 04/22/23 05:00 RDW 18.4 % (12.0-15.0) H 04/22/23 05:00 Plt Count 500 10^3/uL (130-450) H 04/22/23 05:00 MPV 8.4 fL (7.4-11.4) 04/22/23 05:00 Neut # (Auto) 10.0 10^3/uL (1.5-6.6) H 04/22/23 05:00 Lymph # (Auto) 0.7 10^3/uL (1.5-3.5) L 04/22/23 05:00 [place] # (Auto) 0.6 10^3/uL (0.0-1.0) 04/22/23 05:00 Eos # (Auto) 0.0 10^3/uL (0.0-0.7) 04/22/23 05:00 Baso # (Auto) 0.0 10^3/uL (0.0-0.1) 04/22/23 05:00 Absolute Nucleated RBC 0.00 x10^3/uL 04/22/23 05:00 Nucleated RBC % 0.0 /100WBC 04/22/23 05:00 Sodium 133 mmol/L (135-145) L 04/22/23 05:00 Potassium 4.5 mmol/L (3.5-4.5) 04/22/23 05:00 Chloride 95 mmol/L (101-111) L 04/22/23 05:00 Carbon Dioxide 33 mmol/L (21-32) H 04/22/23 05:00 Anion Gap 5.0 (6-13) L 04/22/23 05:00 BUN 18 mg/dL (6-20) 04/22/23 05:00 Creatinine 0.4 mg/dL (0.6-1.3) L 04/22/23 05:00 Estimated GFR (MDRD) 218 (>89) 04/22/23 05:00 Glucose 112 mg/dL (74-104) H 04/22/23 05:00 Lactic Acid 1.5 mmol/L (0.5-2.2) 04/10/23 16:35 Calcium 8.6 mg/dL (8.5-10.3) 04/22/23 05:00 Total Bilirubin 0.3 mg/dL (0.2-1.0) 04/22/23 05:00 AST 21 IU/L (10-42) 04/22/23 05:00 ALT 69 IU/L (10-60) H 04/22/23 05:00 Alkaline Phosphatase 98 IU/L (42-121) 04/22/23 05:00 Total Protein 5.7 g/dL (6.4-8.9) L 04/22/23 05:00 Albumin 2.7 g/dL (3.2-5.5) L 04/22/23 05:00 Globulin 3.0 g/dL (2.1-4.2) 04/22/23 05:00 Albumin/Globulin Ratio 0.9 (1.0-2.2) L 04/22/23 05:00 Lipase 19 U/L (22-51) L 04/10/23 16:35 Urine Color YELLOW 04/12/23 18:00 Urine Clarity CLEAR (CLEAR) 04/12/23 18:00 Urine pH 5.0 PH (5.0-7.5) 04/12/23 18:00 Ur Specific [place] 1.025 (1.002-1.030) 04/12/23 18:00 Urine Protein NEGATIVE mg/dL (NEGATIVE) 04/12/23 18:00 Urine Glucose (UA) NEGATIVE mg/dL (NEGATIVE) 04/12/23 18:00 Urine Ketones NEGATIVE mg/dL (NEGATIVE) 04/12/23 18:00 Urine Occult Blood NEGATIVE (NEGATIVE) 04/12/23 18:00 Urine Nitrite NEGATIVE (NEGATIVE) 04/12/23 18:00 Urine Bilirubin NEGATIVE (NEGATIVE) 04/12/23 18:00 Urine Urobilinogen 0.2 (NORMAL) E.U./dL (NORMAL) 04/12/23 18:00 Ur Leukocyte Esterase NEGATIVE (NEGATIVE) 04/12/23 18:00 Urine RBC 0-5 /HPF (0-5) 04/12/23 18:00 Urine WBC 0-3 /HPF (0-3) 04/12/23 18:00 Ur Squamous Epith Cells RARE Squamous (<= Few) 04/12/23 18:00 Urine Bacteria Rare /HPF (None Seen) 04/12/23 18:00 Urine Mucus Few Strands 04/12/23 18:00 Urine Culture Comments NOT INDICATED 04/12/23 18:00 Fluid Source PLEURAL 04/10/23 18:30 Fluid Color YELLOW 04/10/23 18:30 Fluid Clarity CLEAR 04/10/23 18:30 Fluid WBC 352 /mm^3 04/10/23 18:30 Fluid RBC < 3000 /mm^3 04/10/23 18:30 Fluid Neutrophils % 21.0 % 04/10/23 18:30 Fluid Lymphocytes % 66.0 % 04/10/23 18:30 Fluid Monocytes % 3.0 % 04/10/23 18:30 Fluid Macrophages % 2.0 % 04/10/23 18:30 Fld Mesothelial Cell % 8.0 % 04/10/23 18:30 Nasal Adenovirus (PCR) NOT DETECTED 04/10/23 20:30 Nasal B. parapertussis DNA (PCR) NOT DETECTED 04/10/23 20:30 Nasal Coronavir 229E PCR NOT DETECTED 04/10/23 20:30 Nasal Coronavir HKU1 PCR NOT DETECTED 04/10/23 20:30 Nasal Coronavir NL63 PCR NOT DETECTED 04/10/23 20:30 Nasal Coronavir OC43 PCR NOT DETECTED 04/10/23 20:30 Nasal Enterovir/Rhinovir PCR NOT DETECTED 04/10/23 20:30 Nasal Influenza B PCR NOT DETECTED 04/10/23 20:30 Nasal Influenza A PCR NOT DETECTED 04/10/23 20:30 Nasal Parainfluen 1 PCR NOT DETECTED 04/10/23 20:30 Nasal Parainfluen 2 PCR NOT DETECTED 04/10/23 20:30 Nasal Parainfluen 3 PCR NOT DETECTED 04/10/23 20:30 Nasal Parainfluen 4 PCR NOT DETECTED 04/10/23 20:30 Nasal RSV (PCR) NOT DETECTED 04/10/23 20:30 Nasal B.pertussis DNA PCR NOT DETECTED 04/10/23 20:30 Nasal C.pneumoniae (PCR) NOT DETECTED 04/10/23 20:30 Estiven Human Metapneumo PCR NOT DETECTED 04/10/23 20:30 Nasal M.pneumoniae (PCR) NOT DETECTED 04/10/23 20:30 Nasal SARS-CoV-2 (PCR) NOT DETECTED 04/10/23 20:30
[2023-04-25] MEDS: LORazepam 1 MG TABLET PO SCH ×2 (00:15→08:42)
[2023-04-25] MEDS: LIDOCAINE OINTMENT 5% 35.44 GM TUBE TOP PRN (01:22)
[2023-04-25] MEDS: clonazePAM 0.5 MG TABLET PO SCH (06:10)
[2023-04-25] MEDS: PANTOPRAZOLE 40 MG TABLET PO SCH (06:11)
[2023-04-25] MEDS ORDERED: clonazePAM 0.5 MG TABLET ONE ×2 (06:13→06:14)
[2023-04-25] MEDS: LIDOCAINE PATCH 5% TOP PRN (06:15)
[2023-04-25] MEDS: MULTIVITAMIN W/MINERALS TABLET PO SCH (08:41)
[2023-04-25] MEDS: LACTOBACILLUS RHAMNOSUS GG CAPSULE PO SCH (08:41)
[2023-04-25] MEDS: CHOLECALCIFEROL 25 MCG TABLET PO SCH (08:41)
[2023-04-25] MEDS: CALCIUM CARB (OYSTER SHELL) 500 MG TABLET PO SCH (08:41)
[2023-04-25] MEDS: MORPHINE ER 15 MG TABLET PO SCH (08:41)
[2023-04-25] MEDS: dexAMETHasone 4 MG TABLET PO SCH (08:41)
[2023-04-25] MEDS: MORPHINE ER 60 MG TABLET PO SCH (08:42)
[2023-04-25] MEDS: SODIUM CHLORIDE FLUSH 0.9% 10 ML SYRINGE IVP SCH ×2 (09:24)
[2023-04-25] MEDS: ENOXAPARIN 40 MG/0.4 ML SYRINGE SUBQ SCH (09:24)
[2023-04-25] MEDS: ACETAMINOPHEN 500 MG TABLET PO PRN (09:24)
--- NOTE | 2023-04-25 11:57 | Discharge Plan ---
"Discharge Plan for SNF / [facility] - Discharge Plan And Transition Orders Problem Reviewed?: Yes Disposition: 03 SNF DC/Xfer Condition: Good Allergies and Adverse Reactions: Allergies Allergy/AdvReac Type Severity Reaction Status Date / Time No Known Drug Allergies Allergy Verified 03/22/23 14:34 Health Concerns: Metastatic Lung Cancer, Brain mets, chronic pain Plan of Treatment: Hospice care, SNF Care Goals: Comfort Assessment: Stable - SNF / [facility] Transition Orders Admit to (Facility): [facility] Discharge Diagnosis: Metastatic primary lung cancerunchanged Transaminitisimproved Right large pleural effusionresolved Physical deconditioningstable AnorexiaStable COPDStable Medicare Certification Statement: I certify that [facility] long[facility]term care is medically necessary on a continuing basis for any of the conditions for which she/he is receiving care during hospitalization. Notify PCP of admission and forward orders to primary provider for signature. Weight on admission and: Weekly Other Notification Orders: Call PCP immediately if patient develops dyspnea, chest pain/tightness or edema. House Bowel Program: Yes Additional Bowel Program Orders: If no BM after 2 days, nurse may give M.O.M. 30ml PO PRN and/or ducolax Supp 1 MI and/or CANDIE 250mg P.O., and/or senna 1-2 tabs PO. On day 3 nurse may give repeat above order until residents constipation is resolved. Annual Influenza Vaccine (between Jun 01 and December 29): Yes Two-step PPD per [facility] [phone] or approved exception documents: No Medication Orders: PLEASE REFER TO THE DISCHARGE MEDICATION LIST. - Medications New Prescriptions: HYDROcod/ACETAM 5/325 [[place] 5/325] 1 tab PO Q4HR PRN #30 tab PRN Reason: Moderate Pain (Level 4-6) Lactobacillus Rhamnosus GG [Culturelle] 1 cap PO DAILY #30 cap dexAMETHasone [Decadron] 4 mg PO BIDWM #30 tab Lidocaine Patch 5% [Lidoderm Patch] 1 patch TOP DAILY PRN #20 patch PRN Reason: Moderate Pain (Level 4-6) LORazepam [Lorazepam] 2 tab PO Q8H #20 tab Morphine ER 180 mg PO Q8H #30 tab Morphine ER [Ms Contin] 15 mg PO Q8H #30 tab Pantoprazole [Protonix] 40 mg PO QDAC #30 tab Senna [Senokot] 8.6 mg PO BID PRN #30 tab PRN Reason: Constipation Lidocaine Ointment 5% [Xylocaine Ointment 5%] 1 applic TOP BID PRN #3 each PRN Reason: Minor Pain - Diet Texture: Mech soft May have monthly special meal: Yes - Therapies | Activity Therapy: Evaluation | Treat if indicated: PT, OT Rehabilitation Potential: Maintain present ADL Functional Activity: Activity as Tolerated Weight Bearing: Full Weight"
[2023-04-25 13:32] VITALS: BP 131/68
--- NOTE | 2023-04-25 18:22 | DISCHARGE SUMMARY ---
Discharge Summary Admit Date: 04/10/23 Discharge Date: 04/25/23 Discharging Provider: Dr Delta Childers Code Status: Do Not Attempt Resuscitation Condition at Discharge: Good Discharge Disposition: 03 SNF DC/Xfer - DIAGNOSES Admission Diagnoses: SOB Metastatic Lung CA Anemia Myalgia DNR Discharge Diagnoses with Status of Each Condition: Metastatic Lung CA - Stable . Transaminitisresolved Right large pleural effusionresolved Physical deconditioningstable Anorexia/severe protein calorie malnutritionstable - HPI History of Present Illness: 62 y/o M presented with falls and AMS and hypoxia. He was found to have a lung mass and was scheduled to have a biopsy. In the ED he was found to be tachycardic and imagaing showed new pleural effusion on right and lung masses. He has improved with fluid and o2. He also has some visual difficulties recently. - CONSULTS | PROCEDURES Consultations: Hospice Procedures: Thoracentesis - HOSPITAL COURSE Hospital Course: (1) Metastatic primary lung cancer Assessment/Plan: Patient had CT of the chest done 3 weeks ago which showed a right lung mass and was to have a biopsy. Pt had large right pleural, was tapped at admission and was sent for cytology and it was negative for malignancy. Both patient and his do not want the fine-needle biopsy at this time. He presented with confusion and his MRI of Brain show multiple enhancing masses bilaterally, suspicious for metastatic disease. His language was "inappropriate" but his confusion improved after patient was started on oral dexamethasone. He was seen by home planning consultant salesperson and is appropriate for Hospice care but will first go to a SNF for some time first. Plan: Continue with Decadron (2) Transaminitis At mid-hospital stay, he had elevated LFTs which were not present at admission. LFTs are now close to normal range. Etiology of rise and fall is unclear. (3) Right large pleural effusion Patient had a thoracentesis done by the ER when he was found to have large lower right pleural effusion. Cytology of pleural effusion showed negative Malignancy. (4) Physical deconditioning Patient presented significantly physical deconditioned, but has gradually improved since on Decadron and since started working with PT and OT Plan: SNF. He has been medically cleared for discharge. (5) Anorexia Pt had poor appetite and has malnutrition. There has been improvement since D ecadron was started. Plan: Continue Decadron (6) Hx of copd He is not in a COPD exacerbation (7) Chronic fatigue syndrome/ myalgia Cont home anti-anxiety meds and the pain medications (8) Lethargy RESOLVED after starting Decadron. - ALLERGIES Allergies/Adverse Reactions: Allergies Allergy/AdvReac Type Severity Reaction Status Date / Time No Known Drug Allergies Allergy Verified 03/22/23 14:34 - MEDICATIONS Home Medications: Ambulatory Orders Medication Instructions Recorded Confirmed Acetaminophen [Tylenol] 2 tab PO TID PRN 04/11/23 04/11/23 Aspirin [Ann] 3 tab PO TID PRN 04/11/23 04/11/23 Calcium Carbonate/Vitamin D3 2 tab PO DAILY 04/11/23 04/11/23 [Calcium 500 mg Chewable Tablet] Multivit-Minerals/Folic Acid 2 tab PO DAILY 04/11/23 04/11/23 [Multivitamin Gummies] clonazePAM [Klonopin] 2 tab PO Q8H 04/11/23 04/11/23 Calcium Carbonate [Tums (Calcium 500 mg PO TID PRN tab 04/25/23 Carbonate 500mg)] Cholecalciferol [Vitamin D3] 25 mcg PO DAILY tab 04/25/23 HYDROcod/ACETAM 5/325 [[place] 5/325] 1 tab PO Q4HR PRN #30 tab 04/25/23 LORazepam [Lorazepam] 2 tab PO Q8H #20 tab 04/25/23 Lactobacillus Rhamnosus GG 1 cap PO DAILY #30 cap 04/25/23 [Culturelle] Lidocaine Ointment 5% [Xylocaine 1 applic TOP BID PRN #3 each 04/25/23 Ointment 5%] Lidocaine Patch 5% [Lidoderm Patch] 1 patch TOP DAILY PRN #20 patch 04/25/23 Morphine ER 180 mg PO Q8H #30 tab 04/25/23 Morphine ER [Ms Contin] 15 mg PO Q8H #30 tab 04/25/23 Multivitamin W/Minerals [Theragran 1 tab PO DAILYWM tab 04/25/23 M] Pantoprazole [Protonix] 40 mg PO QDAC #30 tab 04/25/23 Senna [Senokot] 8.6 mg PO BID PRN #30 tab 04/25/23 clonazePAM [Clonazepam] 4 mg PO Q8HR PRN #30 tab 04/25/23 dexAMETHasone [Decadron] 4 mg PO BIDWM #30 tab 04/25/23 - PHYSICAL EXAM AT DISCHARGE General Appearance: positive: No acute distress Eyes Bilateral: positive: Normal inspection Respiratory: positive: No respiratory distress Abdomen: positive: No distention Extremities: positive: Nml appearance Neurologic/Psychiatric: positive: Oriented x3, CN's nml (2-12) - LABS Result Diagrams: 04/22/23 05:00 04/22/23 05:00 - DIAGNOSTIC IMAGING Diagnostic Imaging Results: Final report reviewed - TIME SPENT Time Spent in Discharge (Minutes): 42
== END 2023-04-25 15:03 | DRG 180 ==
LOC: EDUNIT# → ED 15:21 → MS2 21:13
PROVIDERS: ADMIT Hospitalist; ATTEND Family Medicine Sports Medicine
DX: C34.01 Malignant neoplasm of right main bronchus (principal); C34.31 Malignant neoplasm of lower lobe, right bronchus or lung; E43 Unspecified severe protein-calorie malnutrition; G93.41 Metabolic encephalopathy; C79.31 Secondary malignant neoplasm of brain; E86.0 Dehydration; J90 Pleural effusion, not elsewhere classified; R53.1 Weakness; Z68.20 Body mass index [BMI] 20.0-20.9, adult; Z91.81 History of falling; J98.11 Atelectasis; Z20.822 Contact with and (suspected) exposure to COVID-19; R00.0 Tachycardia, unspecified; R09.02 Hypoxemia; R63.0 Anorexia; R41.0 Disorientation, unspecified; R74.01 Elevation of levels of liver transaminase levels; J44.9 Chronic obstructive pulmonary disease, unspecified; Z66 Do not resuscitate; D64.9 Anemia, unspecified; M17.0 Bilateral primary osteoarthritis of knee; G89.4 Chronic pain syndrome; H53.9 Unspecified visual disturbance; F51.04 Psychophysiologic insomnia; Z87.891 Personal history of nicotine dependence; M79.7 Fibromyalgia; Z51.5 Encounter for palliative care; G93.32 Myalgic encephalomyelitis/chronic fatigue syndrome; R19.09 Other intra-abdominal and pelvic swelling, mass and lump
CPT/HCPCS: 32554; 36415; 70450; 70460; 70553; 71045; 80053; 81001; 83605; 83690; 85025; 87070; 87205; 87633; 89051; 93306; 94640; 97116; 97162; 97166; 97530; 97535; 99284; 99285; A9270; A9585; J1650; J8499; J8540; P9047; Q9967; 81003; 81599; 82945; 84157; 87086; 89060

== ENCOUNTER 2023-04-25 15:08 | Outpatient (CLI) | payer MEDICARE | END 2023-04-25 23:59 | LOC: EMS 15:08 | PROVIDERS: ATTEND Family Medicine Sports Medicine | DX: R41.0 Disorientation, unspecified (principal); C34.91 Malignant neoplasm of unspecified part of right bronchus or lung; C79.31 Secondary malignant neoplasm of brain | CPT/HCPCS: A0425; A0428 ==